=== PATIENT | male | born 1965 | race Caucasian/White ===

== ENCOUNTER 2019-04-04 00:07 | Observation (INO) | payer BC, SELFPAY ==
[2019-04-04] VITALS (13 sets, daily range): BP systolic 109–147; BP diastolic 58–81; PULSE 45–70; RESP 14–18; TEMP 36.6–37.2; O2SAT 92–97; BMI 25.7; BMI 24.7
--- NOTE | 2019-04-04 00:09 | ED.RN ---
CALLED FOR EKG PER RN REQUEST, NO OLD EKGS IN MUSE
--- NOTE | 2019-04-04 00:25 | ED.RN ---
WHILE TRIASGING PT HE REPORTS TO THIS RN THAT HE HAS BEEN HAVING SUICIDAL THOUGHTS. HE REPORTS HE HAS BEEN OUT OF HIS MEDICATIONS AND HAS NOT BEEN TAKING HIS SERTRALINE ON A REGULAR SCHEDULE. HE REPORTS THAT HE HAS BEEN FEELING SUICIDAL. WHEN ASKED HOW HE MAY HURT HIMSELF HE REPORTS, I WOULD DRINK MYSELF TO OR HANG MYSELF. I HAVE BEEN REALLY STRESSED OUT LATELY. I HAVE BEEN HAVING THOUGHTS BUT I DON'T THINK I WOULD ACT ON THEM. THEY HAVE CROSSED MY MIND. CHARGE NURSE INFORMED. DR. BLANCO INFORMED. THIS RN REMAINS AT BEDSIDE WITH PT WHILE AWAITING EVALUATION.
--- NOTE | 2019-04-04 00:33 | EKG12_ITS ---
Test Reason : CP Blood Pressure : / mmHG Vent. Rate : 060 BPM Atrial Rate : 060 BPM P-R Int : 180 ms QRS Dur : 090 ms QT Int : 394 ms P-R-T Axes : 063 010 039 degrees QTc Int : 394 ms Normal sinus rhythm with sinus arrhythmia Normal ECG Confirmed by BELINDA SHELTON ([id number]), editor index ROSLYN GOTTLIEB ([id number] on 04/09/2019 3:28:59 PM Referred By: Félix Moore Confirmed By:BELINDA SHELTON
[2019-04-04] MEDS: Aspirin 81 MG TAB.CHEW 324 MG PO (00:43)
[2019-04-04] MEDS: Nitroglycerin SL (ED/IMG/CATH) 0.4 MG TABLET SUBLINGUAL (00:46)
[2019-04-04 00:49] LABS: Absolute Lymphocyte Count 1.28 X10^3/ul (0.83-4.51); Absolute Neutrophil Count 5.1 X10^3/uL (2.0-7.7); Basophil# 0.09 X10^3/uL; Basophil% 1.3 % (0-1); Eosinophil# 0.22 X10^3/uL; Eosinophils% 3.1 % (0-5); Hematocrit 42.7 % (40-54); Hemoglobin 14.6 g/dl (13.0-16.5); Lymphocyte # 1.28 X10^3/ul (4.0); Lymphocyte % 17.9 % (19-41); Mean Corp Hgb Conc 34.2 g/gl (32-36); Mean Corpuscular Hgb 31.3 pg (27.0-32.0); Mean Corpuscular Volume 91.4 fL (80-94); Mean Platelet Vol. 10.3 fl (6.2-12.0); Neutrophil # 5.07 X10^3/uL (2.7-7.7); Neutrophil % 70.6 % (47-70); Platelet Count 252 K/mm3 (150-450); RBC Distribution Width CV 12.7 % (11.6-14.6); RBC Distribution Width SD 42.1 fl (35.1-43.9); Red Blood Count 4.67 M/mm3 (4.6-6.2); White Blood Count 7.2 K/mm3 (4.4-11.0)
[2019-04-04 00:50] LABS: POSITIVE COUNT NO; POSITIVE DIFFERENTIAL NO; POSITIVE MORPHOLOGY NO
--- NOTE | 2019-04-04 00:52 | RAD_ITS ---
HISTORY: chest pain with sob and weakness EXAM:XR Chest 2 Views COMPARISON: None FINDINGS: EKG leads in place. Normal heart size. Hyperinflation with upper lobe emphysema. Mild interstitial scarring within the mid and lower lung zones. No pulmonary consolidation. No vascular congestion or pleural effusion. No pneumothorax. RAD/Chest PA and Lateral IMPRESSION: 1. No pneumonia or acute chest disease identified. 2. 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 at 0120 Reported and signed by: Lei Maldonado MD Electronically Signed: Lei Maldonado, at 1:19 EDT Tel , Service support ,
[2019-04-04 01:01] LABS: Anion Gap 7 (5-15); BUN 13 mg/dL (7-18); BUN/Creat Ratio 13.1 RATIO (10-20); Chloride 107 mmol/L (98-107); Creatinine, Serum 0.99 mg/dL (0.70-1.30); EST Glomerular Filtration Rate 83 mL/min (>60); Est Glom Filt Rate - Afr Amer 100 mL/min (>60); Estimated Creatinine Clearance 87.05 ml/min; Glucose 254 mg/dL (74-106); Potassium 3.9 mmol/L (3.5-5.1); Sodium Level 139 mmol/L (136-145)
--- NOTE | 2019-04-04 01:48 | HP.PCM_ITS ---
Problem List (1) Chest pain Status: Acute (2) Depression Status: Acute (3) Suicidal ideation Status: Acute History of Present Illness Date of Admission: 04/04/19 Chief Complaint: chest pain The patient is a 53 year old M with a significant history of CAD status post stent; tobacco abuse; alcoholism; Diabetes mellitus; hyperlipidemia; anxiety disorder and depression who presented with 3 to 4 weeks of episodic chest pain. His chest pain typically occurs every day and his last for few minutes. However on the day of his presentation his chest pain persisted all day. He describes his chest pain as tightness and severity 5-6 on a scale of 1-10. Associated with his symptoms is weakness; fatigue;nausea without vomiting; diaphoresis and shortness of breath. 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 He has a history of a panic attack so he thought that it might also be due to his panic attack. Importantly patient has run out of his medication in the last 3 weeks. So far he has only been taking his Brilinta. He reported that he is highly stressed. At the emergency department; patient reported suicidal ideation with a passive wish of but with no active plan. Sitter was provided for him at the emergency department and crisis was consulted. Past Medical History Medical History: Medical History (Last Reviewed 04/04/19 @ 02:59 by Félix Moore MD) CAD (coronary artery disease) I25.10 Allergies No Known Allergies Allergy (Verified 04/04/19 00:07) Home Medications: Ambulatory Orders Medication Instructions Recorded Atorvastatin Calcium 80 mg PO QHS 04/04/19 Famotidine 20 mg PO DAILY 04/04/19 Lisinopril 5 mg PO DAILY 04/04/19 Metformin HCl 1,000 mg PO BID 04/04/19 Sertraline HCl 100 mg PO DAILY 04/04/19 Ticagrelor [Brilinta] 90 mg PO BID 04/04/19 Surgical History: herniorrhaphy, - - coronary stent Smoking Status: Current every day smoker Alcohol: Heavy Review of Systems Constitutional: Reports: Malaise, Weakness, Fatigue. Denies: Chills, Fever, Weight Change HEENT: Denies: Head Aches, Sinus Congestion, Sinus Drainage Cardiovascular: Reports: Chest Tightness, Light Headedness Respiratory: Reports: Shortness of Breath. Denies: Cough Gastrointestinal: Reports: Nausea. Denies: Abdominal Pain, Vomiting Genitourinary: Denies: Dysuria Musculoskeletal: Denies: Joint Pain, Joint Tenderness Skin: Denies: Rash, Wounds Neurological: Denies: Numbness, Tingling, Focal weakness Psychiatric: Reports: Anxiety, Depression, Suicidal Ideations. Denies: Homicidal Ideations Hematologic/ Lymphatic: Denies: Easy Bruising, Easy Bleeding VTE Information - Inpt Only VTE Present on Admission: No VTE Mechan Device Prophylaxis: None VTE Pharm Prophylaxis ordered?: Yes Patient Problems: Active and Suspected Problems (Last Reviewed 04/04/19 @ 02:59 by Félix Moore MD) Chest pain (Acute) Depression (Acute) Suicidal ideation (Acute) - Physical Exam General: Alert, Oriented x3, Cooperative HEENT: Atraumatic, PERRLA, EOMI, Normocephalic Neck: Supple, No JVD, Negative Carotid Bruits Lungs: Clear to auscultation, Normal air movement Cardiovascular: No murmurs, Bradycardic Abdomen: Bowel Sounds Present, Soft, Non Tender Extremities: No edema, Capillary Refill Less than 3 Seconds Skin: No rashes, No breakdown Musculoskeletal: No Tenderness to Palpation of Joints or Extremities Neurological: Cranial nerves II-XII grossly intact Psych/Mental Status: Depressed Vital Signs Temp Pulse Resp BP Pulse Ox 98.9 F 50 L 18 118/75 96 04/04/19 00:08 04/04/19 01:14 04/04/19 01:14 04/04/19 01:14 04/04/19 01:14 Oxygen Flow Rate (L/min) 2 Oxygen Delivery Method Room Air Weight: 81.3 kg Body Mass Index (BMI) 25.7 Laboratory Tests Past 24 Hrs 04/04/19 04/04/19 00:15 00:15 WBC 7.2 RBC 4.67 Hgb 14.6 Hct 42.7 MCV 91.4 MCH 31.3 MCHC 34.2 RDW 12.7 RDW Differential 42.1 Plt Count 252 MPV 10.3 Immature Gran % (Auto) 0.100 Neut % (Auto) 70.6 H Lymph % (Auto) 17.9 L [place] % (Auto) 7.0 Eos % (Auto) 3.1 Baso % (Auto) 1.3 H Absolute Neuts (auto) 5.1 Absolute Lymphs (auto) 1.28 Total Counted Not Reportable Sodium 139 Potassium 3.9 Chloride 107 Carbon Dioxide 25.0 Anion Gap 7 BUN 13 Creatinine 0.99 Estim Creat Clear Calc 87.05 Est GFR (MDRD) Af Amer 100 Est GFR (MDRD) Non-Af 83 BUN/Creatinine Ratio 13.1 Glucose 254 H Calcium 9.0 Troponin I < 0.015 Assessment/Plan All Active Problems (Last Reviewed 04/04/19 @ 02:59 by Félix Moore MD) Chest pain (Acute) Depression (Acute) Suicidal ideation (Acute) The patient is a 53 year old M with a significant history of CAD status post stent: tobacco abuse; alcoholism; Diabetes mellitus; hyperlipidemia; anxiety disorder and depression who presented with 3 to 4 weeks of episodic chest pain; feel highly stressed and with suicidal ideation. Chest Pain Admit to a monitored bed on PCU CXR independently reviewed confirms no acute cardiopulmonary process. EKG independently reviewed confirms sinus arrhythmia Resume home ASA 81 mg and Brilinta Morphine as needed for pain We will check lipid panel. Resume high intensity statin. Serial cardiac enzymes Stat EKG as needed for chest pain Treadmill Stress test in the AM if the cardiac enzymes are negative. Depression/Anxiety Reports that his home Sertraline probably gave him diarrhea. Fluoxetine started at low dose Noted bradycardia on monitor. TSH ordered Suicidal Ideation Counselled Sitter by the bedside Crisis consulted from the ED Diabetes On presentation his blood glucose was not within goal. Like due to barriers of care secondary to running out of his medications Will not resume home metformin Correction scale insulin ordered Tobacco Abuse Counselled Nicotine patch ordered Alcoholism Drinks 2-3 beers per day; and 6 packs beer some day. Counselled Patient think he will not withdraw Declined beer while inpatient. DVT prophylaxis Subcutaneous heparin. Code Visit OBSV E&M: [id number] Initial observation care L3
--- NOTE | 2019-04-04 01:56 | ED.DCSUM_ITS ---
- ER Visit Summary Date of Service: 04/04/19 Chief Complaint: Chest pain History of Present Illness: The patient is a 53 M who presents with chest pain. This is been occurring intermittently over the past 3 weeks. Describes it as a tightness. This usually lasts only seconds. He also complains of associated nausea, shortness of breath, feeling dizzy and lightheaded. His symptoms are worse with exertion. He does have a history of coronary disease with prior [place] cardiac cath and a stent. He has been out of his medications for the past 3 weeks except for his Brilinta. His symptoms were significantly worse tonight with increased shortness of breath and dizziness so he presented. He otherwise complains of some chronic diarrhea for the past 3 months. No vomiting. No fevers. No cough. On suicide screening he did screen positive. He endorses suicidal ideations. He reports that he has been under a lot of stress at home and at work lately. He has had suicidal thoughts of hanging himself. He states sometimes he wishes that something would happen to cause him to such as a tree falling on him. When asked if he actively feels suicidal he states mildly. Physical Examination: Afebrile vitals unremarkable Moist mucous membranes Heart regular rate and rhythm no murmur Lungs clear Abdomen soft Alert Patient endorses suicidal ideation Test Results: EKG shows normal sinus rhythm at a rate of 60. CBC BMP troponin notable only for glucose 254. Chest x-ray shows no acute disease. Emergency Department Course and Treatment: Patient was given aspirin and 1 sublingual nitroglycerin. On reevaluation he is pain-free. Troponin is negative. Patient discussed with the hospitalist and admitted. Additionally he will need to be evaluated by crisis once medically cleared in regard to his ideation. Treatment Plan: [] Disposition: Admit Impression: Chest pain Suicidal ideation This note was generated with [facility] dictation software. It may contain incorrect words, spelling, and punctuation that were not noted in review of the chart prior to signing ED Disposition - Plan for ED Patient: Referrals: Care Physician,No Primary [Primary Care Provider] -
[2019-04-04 02:20] LABS: Amphetamine Urine VISTA NEGATIVE (<1000 ng/mL); Barbiturate Urine VISTA NEGATIVE (< 200 ng/mL); Benzodiazepine Urine VISTA NEGATIVE (< 200 ng/mL); Cocaine Urine VISTA NEGATIVE (< 300 ng/mL); Ecstacy Urine VISTA NEGATIVE (< 500 ng/mL); Methadone Urine VISTA NEGATIVE (< 300 ng/mL); PCP Urine VISTA NEGATIVE (< 25 ng/mL); THC Urine VISTA NEGATIVE (< 50 ng/mL); Vista UDS pH Range 6
--- NOTE | 2019-04-04 02:44 | EKG12_ITS ---
Test Reason : CP ADMISSION Blood Pressure : / mmHG Vent. Rate : 047 BPM Atrial Rate : 047 BPM P-R Int : 112 ms QRS Dur : 096 ms QT Int : 430 ms P-R-T Axes : 079 046 015 degrees QTc Int : 380 ms Sinus bradycardia Otherwise normal ECG No previous ECGs available Confirmed by MIKEY GUERRA ([id number]), web content editor ROSLYN GOTTLIEB ([id number]) on 04/09/2019 4:46:41 PM Referred By: Félix Moore Confirmed By:CAMDEN GUERRA
[2019-04-04 03:12] LABS: Thyroid Stim Hormone (TSH) 1.54 uIU/mL (0.358-3.74)
[2019-04-04] MEDS: FLUoxetine 20 MG Capsule PO ×2 (03:22→09:40)
[2019-04-04] MEDS: Atorvastatin Calcium 80 MG Tablet PO (03:22)
[2019-04-04] MEDS: TICAGRELOR 90 MG TABLET PO (05:39)
[2019-04-04] MEDS: Lisinopril 5 MG Tablet PO (05:40)
[2019-04-04 06:00] LABS: Absolute Neutrophil Count 3.3 X10^3/uL (2.0-7.7); Basophil# 0.06 X10^3/uL; Eosinophil# 0.34 X10^3/uL; Eosinophils% 5.7 % (0-5); Hematocrit 42.1 % (40-54); Hemoglobin 14.4 g/dl (13.0-16.5); Lymphocyte % 28.6 % (19-41); Mean Corp Hgb Conc 34.2 g/gl (32-36); Mean Corpuscular Hgb 31.4 pg (27.0-32.0); Mean Corpuscular Volume 91.9 fL (80-94); Mean Platelet Vol. 9.8 fl (6.2-12.0); Monocyte# 0.55 X10^3/uL; Monocyte% 9.3 % (0-10); Neutrophil # 3.28 X10^3/uL (2.7-7.7); Neutrophil % 55.2 % (47-70); Platelet Count 233 K/mm3 (150-450); RBC Distribution Width SD 43.2 fl (35.1-43.9); Red Blood Count 4.58 M/mm3 (4.6-6.2); White Blood Count 5.9 K/mm3 (4.4-11.0)
[2019-04-04 06:05] LABS: Prothrombin Time (Protime)PT. 13.1 SECONDS (11.7-14.9)
[2019-04-04 06:06] LABS: Partial Thromboplast Time 26.9 Seconds (24.1-36.2)
[2019-04-04 06:12] LABS: POSITIVE COUNT NO; POSITIVE DIFFERENTIAL NO; POSITIVE MORPHOLOGY NO
[2019-04-04 06:16] LABS: Anion Gap 7 (5-15); BUN 12 mg/dL (7-18); BUN/Creat Ratio 15.6 RATIO (10-20); Calcium,Total 8.9 mg/dL (8.5-10.1); Chloride 108 mmol/L (98-107); Cholesterol 193 mg/dL (200); Creatinine, Serum 0.77 mg/dL (0.70-1.30); EST Glomerular Filtration Rate 111 mL/min (>60); Est Glom Filt Rate - Afr Amer 135 mL/min (>60); Estimated Creatinine Clearance 111.92 ml/min; Glucose 127 mg/dL (74-106); High Density Lipoprotein 47 mg/dL; Potassium 3.8 mmol/L (3.5-5.1); Sodium Level 141 mmol/L (136-145); Triglycerides 135 mg/dL; Very Low Density Lipoprotein 27 mg/dL (5-40)
[2019-04-04] MEDS: Famotidine 20 MG Tablet PO (09:40)
[2019-04-04 13:02] LABS: Bedside Glucose 149 mg/dL (70-110)
--- NOTE | 2019-04-04 14:42 | PCM.PN.BLA ---
Progress Note Admission H&P from this morning reviewed, he denies any chest pain currently and the stress test is currently pending read. If normal will proceed with behavioral health referral since he was expressing suicidal ideation in the ER this morning.
--- NOTE | 2019-04-04 16:12 | STRESSREP_ITS ---
Stress Test Report Date: April 04, 2019 Procedure: Pharmacologic stress nuclear imaging study Indications: Chest pain Consent: Per the patient Procedure: Patient initially started as exercise nuclear stress test. He walked for 8 minutes and 10 seconds. He achieved a workload of 10.1 METS. His resting heart rate was 50 bpm and misael to 120 bpm which represented 72% of maximal age predicted heart rate. His resting blood pressure was 116/78 which misael to 142/74. Since he was unable to attain target heart rate he was switched to Lexiscan stress test. His EKG at rest and with peak exercise did not reveal any significant ST-T changes suggestive of significant ischemia. However the exercise portion of the test had low sensitivity due to inability to attain target heart rate and as mentioned above so he was switched to Lexiscan stress test. The patient underwent pharmacologic (Regadenoson) evaluation with a peak heart rate of 93 beats per minute (56 %predicted maximal heart rate) and a peak blood pressure of 124/70 mmHg. The baseline ECG demonstrated normal sinus rhythm nonspecific ST-T changes. EKG during lexiscan infusion revealed no significant change from baseline. EKG post infusion revealed no significant change from baseline [There were no cardiac dysrhythmias pretest, during pharmacologic infusion, or recovery]. [There was no complaint of chest discomfort during pharmacologic infusion or recovery]. Patient had 2 out of 10 chest pain at the beginning of the procedure with did not change with exercise or Lexiscan infusion. The examination was discontinued secondary to completion of protocol. Impression: 1. Lexiscan stress test test is negative for Lexiscan infusion induced EKG changes of ischemia. 2. Lexiscan stress test test negative for Lexiscan infusion induced chest pain. 3. Results of the nuclear portion of the test is as below Myocardial perfusion imaging study: Technique: The patient was injected with 11.2 millicuries of technetium 99m Cardiolite and subsequently rest SPECT Cardiolite nuclear imaging was obtained in the horizontal long, vertical long, and short axis views. The patient underwent pharmacologic (Regadenoson) evaluation with a peak heart rate of 93 beats per minute (56 % percent predicted maximal heart rate) and a peak blood pressure of 124 mmHg. The patient was injected with 32.9 millicuries of technetium 99m Cardiolite and subsequently stress SPECT Cardiolite nuclear imaging was obtained in the horizontal long, vertical long, and short axis views. A gated Cardiolite study at peak stress was obtained. Interpretation: Rest and stress SPECT Cardiolite nuclear imaging status post realignment, normalization, and attenuation correction demonstrate normal myocardial radioisotope uptake. Gated images reveal no significant regional wall motion abnormalities. The reported LVEF is greater than 70 %. Impression: 1. There is no evidence of significant ischemia or infarction. 2. Estimated ejection fraction is greater than 70%. This note was generated with [employer] software. It may contain incorrect words, spelling, and punctuation that were not noted in checking the note before signing.
[2019-04-04 16:56] LABS: Bedside Glucose 153 mg/dL (70-110)
[2019-04-04] MEDS: Insulin Lispro 100 UNIT/ML INSULN.PEN SQ (18:12)
--- NOTE | 2019-04-04 18:55 | DCINST_ITS ---
- Discharge Diagnoses Current Active Problems: Current Active and Chronic Problems (Last Reviewed 04/04/19 @ 02:59 by Félix Moore MD) Chest pain (Acute) Depression (Acute) Suicidal ideation (Acute) You will use the following diet at home:: Cardiac Your food should be the consistency of: Regular Your liquids should be the consistency of: Regular/Thin Discharge Activity: Return to Normal Activity Call your doctor if you observe: Fever of 101 or Higher, Shortness of breath, Dizziness, Fainting spells, Swelling in the ankles, Chest pain, Increased palpitations (irregular heartbeat) Additional Instructions: Please follow-up with your primary care physician as an outpatient, discussed with him that while being on Prozac if he is asymptomatic after 2 weeks from side effects, he can double his dose of Prozac. Allergies/Adverse Reactions: Allergies No Known Allergies Allergy (Verified 04/04/19 00:07) Medications to take at Discharge Atorvastatin Calcium 80 mg PO QHS 04/04/19 Famotidine 20 mg PO DAILY 04/04/19 Fluoxetine [Prozac] 20 mg PO DAILY #30 cap 04/04/19 Lisinopril 5 mg PO DAILY 04/04/19 Metformin HCl 1,000 mg PO BID 04/04/19 Ticagrelor [Brilinta] 90 mg PO BID 04/04/19 The following prescriptions were given: Fluoxetine [Prozac] 20 mg PO DAILY #30 cap Primary Care Physician: Care Physician,No Primary [Primary Care Provider] - Please follow up with your Primary Care Physician in: 3-5 days Test Results: Test results from this visit will be discussed in further detail at your follow- up appointment, if applicable.
--- NOTE | 2019-04-04 19:01 | DS.PCM_ITS ---
Discharge Date and Diagnosis - Problem List Patient Problems: Active and Suspected Problems (Last Reviewed 04/04/19 @ 02:59 by Félix Moore MD) Chest pain (Acute) Depression (Acute) Suicidal ideation (Acute) Date of Admission: 04/04/19 Date of Discharge: 04/04/19 - Primary Discharge Diagnosis Active and Suspected Problems (Last Reviewed 04/04/19 @ 02:59 by Félix Moore MD) Chest pain (Acute) Depression (Acute) Suicidal ideation (Acute) Hospital Course and Treatment Imaging Results: CXR: IMPRESSION: 1. No pneumonia or acute chest disease identified. 2. 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 Consultations 04/04/19 16:20 Consult: Mental Health/Crisis Routine Reason for consult?: suicidal ideation Date Notified:: 04/04/19 Time notified:: 16:20 Operations: None Procedures: Nuclear stress test - Interpretation: Rest and stress SPECT Cardiolite nuclear imaging status post realignment, normalization, and attenuation correction demonstrate normal myocardial radioisotope uptake. Gated images reveal no significant regional wall motion abnormalities. The reported LVEF is greater than 70 %. Impression: 1. There is no evidence of significant ischemia or infarction. 2. Estimated ejection fraction is greater than 70%. Summary of Care Provided: Per HPI: The patient is a 53 year old M with a significant history of CAD status post stent; tobacco abuse; alcoholism; Diabetes mellitus; hyperlipidemia; anxiety disorder and depression who presented with 3 to 4 weeks of episodic chest pain. His chest pain typically occurs every day and his last for few minutes. However on the day of his presentation his chest pain persisted all day. He describes his chest pain as tightness and severity 5-6 on a scale of 1-10. Associated with his symptoms is weakness; fatigue;nausea without vomiting; diaphoresis and shortness of breath. 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 He has a history of a panic attack so he thought that it might also be due to his panic attack. Importantly patient has run out of his medication in the last 3 weeks. So far he has only been taking his Brilinta. He reported that he is highly stressed. At the emergency department; patient reported suicidal ideation with a passive wish of but with no active plan. Sitter was provided for him at the emergency department and crisis was consulted. Hospital Course: 1. Chest [id number] male with a history of CAD status post stent presenting with 3 to 4 weeks of intermittent chest pain. His chest pain was more of a tightness and he was very stressed due to the pain given his previous cardiac history and he also has underlying anxiety and depression and so he presented to the ER. He underwent a stress test which was normal, his EKG remained nonischemic and his troponins were all negative. He was already on Brilinta and aspirin which will be continued on discharge. He is also on high intensity statin which will also be continued. 2. Anxiety/depression/suicidal ideation-he was on Zoloft at home but he said that this was giving him significant diarrhea and he was transitioned to a low- dose Prozac here in the hospital. He stated in the ER that with the chest pain and the stress that he has been having at home and at work, he has been having suicidal thoughts and had thoughts of hanging himself. A sitter was placed in his room and crisis was contacted. They met with him this afternoon and went over a safety plan and who to contact and who to call and they felt that he was safe for discharge. I discussed with him that we will be giving her a prescription for Prozac and if in 2 weeks of taking the medication he does not have any significant side effects he can increase the medication to 40 mg daily, however he will need to find a primary care physician or psychiatrist to provide him a refill and manage this medication. 3. His other medical problems were evaluated and his home medications were continued where appropriate This was discussed with him and he expressed understanding and agreed to the plan. Patient Problems: Active and Suspected Problems (Last Reviewed 04/04/19 @ 02:59 by Félix Moore MD) Chest pain (Acute) Depression (Acute) Suicidal ideation (Acute) - Physical Exam General: Alert, Oriented x3, Cooperative, No apparent distress HEENT: Atraumatic, PERRLA, EOMI, Normocephalic Oral: Moist Mucosa Neck: Supple, No JVD Lungs: Clear to auscultation, Normal air movement, No rhonchi, No wheeze, No rales Cardiovascular: Regular rate, Regular Rhythm, Normal S1, Normal S2, No murmurs Abdomen: Soft, Non Tender, Non-Distended, No Hepato-splenomegaly Extremities: No edema, Capillary Refill Less than 3 Seconds Skin: No rashes, No breakdown Neurological: Neuro grossly intact, Sensory exam intact to light touch and pain Psych/Mental Status: Depressed, Suicidal - He expressed suicidal thoughts in the ER however he thinks that he is doing better now that he knows that his chest pain is not another heart attack. Vital Signs Temp Pulse Resp BP Pulse Ox 98.3 F 70 18 120/75 92 04/04/19 15:27 04/04/19 15:39 04/04/19 15:27 04/04/19 15:27 04/04/19 15:27 Oxygen Flow Rate (L/min) 2 Oxygen Delivery Method Room Air Weight: 172 lb 6.424 oz Body Mass Index (BMI) 24.7 Intake and Output for Last 24 Hours 04/02/19 04/03/19 04/04/19 23:59 23:59 23:59 Intake Total 835 / 835 Balance 835 / 835 Laboratory Tests Past 24 Hrs 04/04/19 04/04/19 04/04/19 00:15 00:15 00:15 WBC 7.2 RBC 4.67 Hgb 14.6 Hct 42.7 MCV 91.4 MCH 31.3 MCHC 34.2 RDW 12.7 RDW Differential 42.1 Plt Count 252 MPV 10.3 Immature Gran % (Auto) 0.100 Neut % (Auto) 70.6 H Lymph % (Auto) 17.9 L [place] % (Auto) 7.0 Eos % (Auto) 3.1 Baso % (Auto) 1.3 H Absolute Neuts (auto) 5.1 Absolute Lymphs (auto) 1.28 Total Counted Not Reportable PT INR APTT Sodium 139 Potassium 3.9 Chloride 107 Carbon Dioxide 25.0 Anion Gap 7 BUN 13 Creatinine 0.99 Estim Creat Clear Calc 87.05 Est GFR (MDRD) Af Amer 100 Est GFR (MDRD) Non-Af 83 BUN/Creatinine Ratio 13.1 Glucose 254 H Calcium 9.0 Troponin I < 0.015 Triglycerides Cholesterol LDL Cholesterol VLDL Cholesterol HDL Cholesterol TSH 1.54 Urine Opiates Screen Urine Methadone Screen Ur Barbiturates Screen Ur Phencyclidine Scrn Ur Amphetamines Screen U Methamphetamin-MDMA U Benzodiazepines Scrn Urine Cocaine Screen U Cannabinoids Screen Ur Drug Screen Comment 04/04/19 04/04/19 04/04/19 01:05 03:40 05:45 WBC RBC Hgb Hct MCV MCH MCHC RDW RDW Differential Plt Count MPV Immature Gran % (Auto) Neut % (Auto) Lymph % (Auto) [place] % (Auto) Eos % (Auto) Baso % (Auto) Absolute Neuts (auto) Absolute Lymphs (auto) Total Counted PT INR APTT Sodium 141 Potassium 3.8 Chloride 108 H Carbon Dioxide 26.0 Anion Gap 7 BUN 12 Creatinine 0.77 Estim Creat Clear Calc 111.92 Est GFR (MDRD) Af Amer 135 Est GFR (MDRD) Non-Af 111 BUN/Creatinine Ratio 15.6 Glucose 127 H Calcium 8.9 Troponin I < 0.015 < 0.015 Triglycerides 135 Cholesterol 193 LDL Cholesterol 119 VLDL Cholesterol 27 HDL Cholesterol 47 TSH Urine Opiates Screen NEGATIVE Urine Methadone Screen NEGATIVE Ur Barbiturates Screen NEGATIVE Ur Phencyclidine Scrn NEGATIVE Ur Amphetamines Screen NEGATIVE U Methamphetamin-MDMA NEGATIVE U Benzodiazepines Scrn NEGATIVE Urine Cocaine Screen NEGATIVE U Cannabinoids Screen NEGATIVE Ur Drug Screen Comment 04/04/19 04/04/19 05:45 05:45 WBC 5.9 RBC 4.58 L Hgb 14.4 Hct 42.1 MCV 91.9 MCH 31.4 MCHC 34.2 RDW 13.0 RDW Differential 43.2 Plt Count 233 MPV 9.8 Immature Gran % (Auto) 0.200 Neut % (Auto) 55.2 Lymph % (Auto) 28.6 [place] % (Auto) 9.3 Eos % (Auto) 5.7 H Baso % (Auto) 1.0 Absolute Neuts (auto) 3.3 Absolute Lymphs (auto) 1.70 Total Counted Not Reportable PT 13.1 INR 1.0 APTT 26.9 Sodium Potassium Chloride Carbon Dioxide Anion Gap BUN Creatinine Estim Creat Clear Calc Est GFR (MDRD) Af Amer Est GFR (MDRD) Non-Af BUN/Creatinine Ratio Glucose Calcium Troponin I Triglycerides Cholesterol LDL Cholesterol VLDL Cholesterol HDL Cholesterol TSH Urine Opiates Screen Urine Methadone Screen Ur Barbiturates Screen Ur Phencyclidine Scrn Ur Amphetamines Screen U Methamphetamin-MDMA U Benzodiazepines Scrn Urine Cocaine Screen U Cannabinoids Screen Ur Drug Screen Comment POC Glucose 04/04/19 04/04/19 16:48 11:18 POC Glucose 153 H 149 H Discharge Activity: Return to Normal Activity Call your doctor if you observe: Fever of 101 or Higher, Shortness of breath, Dizziness, Fainting spells, Swelling in the ankles, Chest pain, Increased palpitations (irregular heartbeat) Home Medications: Medications to take at Discharge Atorvastatin Calcium 80 mg PO QHS 04/04/19 Famotidine 20 mg PO DAILY 04/04/19 Fluoxetine [Prozac] 20 mg PO DAILY #30 cap 04/04/19 Lisinopril 5 mg PO DAILY 04/04/19 Metformin HCl 1,000 mg PO BID 04/04/19 Ticagrelor [Brilinta] 90 mg PO BID 04/04/19 Following Prescrptions Were Given to Patient: Fluoxetine [Prozac] 20 mg PO DAILY #30 cap Primary Care Physician: Care Physician,No Primary [Primary Care Provider] - Please follow up with your Primary Care Physician in: 3-5 days Disposition: Home Minutes spent on discharge:: 35 Patient Condition:: Stable Medical Necessity - Tobacco Use Smoking Status: Current every day smoker Meaningful Use Info Meaningful Use Diagnoses (Choose all that apply): None applicable Code Visit OBSV E&M: 82190 Observation care discharge
== END 2019-04-04 19:25 | disposition home or self-care (01) ==
LOC: ED 00:50 → PCU 02:18
PROVIDERS: Admitting Provider Hospitalist; Emergency Provider Emergency Medicine; Referring Provider Hospitalist; Visit Provider Family Medicine
DX: R07.89 Other chest pain (principal); I25.10 Atherosclerotic heart disease of native coronary artery without angina pectoris; E11.9 Type 2 diabetes mellitus without complications; E78.5 Hyperlipidemia, unspecified; F41.9 Anxiety disorder, unspecified; F32.9 Major depressive disorder, single episode, unspecified; R45.851 Suicidal ideations; F17.200 Nicotine dependence, unspecified, uncomplicated; F10.20 Alcohol dependence, uncomplicated; Z95.5 Presence of coronary angioplasty implant and graft; Z79.899 Other long term (current) drug therapy; I25.2 Old myocardial infarction
CPT/HCPCS: 36415; 71046; 78452; 80048; 80061; 80307; 82962; 84443; 84484; 85025; 85610; 85730; 93005; 93017; 99218; 99285; 99406; A9500; A4216; G0378; J2785

== ENCOUNTER 2020-06-21 15:07 | Emergency (ER) | payer MEDICAID, SELFPAY ==
[2019-04-04 02:56] VITALS: BMI 24.7
[2020-06-21 15:08] VITALS: BP 148/100; PULSE 82; RESP 17; TEMP 36.4; O2SAT 97; BMI 24.0
--- NOTE | 2020-06-21 15:24 | RAD_ITS ---
STUDY: X-RAY - LEFT WRIST REASON FOR EXAM: Male, 55 years old. Left wrist pain TECHNIQUE: 3 view(s) of the wrist were obtained. COMPARISON: None. FINDINGS: There is chronic nonunited fracture of the scaphoid with severe sclerosis of both fragments. Distal fragment is rotated. There is cystic degeneration of the distal subchondral radius. The wrist is located. Remainder of the carpal bones are intact. RAD/Wrist min 3 Views IMPRESSION: 1. Chronic nonunited sclerotic fragments of scaphoid. Elective orthopedic surgery referral is advised. 2. Subchondral distal radial cyst. Electronically Signed: Bob Anguiano, at 16:08 EDT Tel , Service support ,
--- NOTE | 2020-06-21 16:28 | ED.VISSUMM ---
- ER Visit Summary Date of Service: 06/21/20 Chief Complaint: Left wrist pain History of Present Illness: The patient is a 55 M with left wrist pain for several days. Patient denies any injury or inciting factors. Worse with movement both radial and ulnar deviation. No other symptoms. Physical Examination: Afebrile and vital signs unremarkable. Unremarkable inspection. No redness or visible swelling at this time. No deformities. Diffuse tender to palpation over the left wrist. No warmth. Motion is intact. No laxity. Neurovascular intact distally. Good strength and sensation. Elbow unremarkable. Normal pronation and supination. Test Results: X-rays show a left wrist with a chronic nonunited scaphoid fracture and a distal radial cyst Emergency Department Course and Treatment: Patient declined pain medicine. X-rays as above. Patient was placed in a preformed Velcro thumb spica splint. Referred to hand surgery for follow-up. Pain meds as needed. Treatment Plan: As above Disposition: Discharge Impression: Left wrist pain This note was generated with [employer] dictation software. It may contain incorrect words, spelling, and punctuation that were not noted in review of the chart prior to signing ED Disposition - Plan for ED Patient: Referrals: Hailey Mercado [Primary Care Provider] -
--- NOTE | 2020-06-21 16:30 | ED.DEP ---
ED Disposition - Plan for ED Patient: Instructions: ED Sprain Wrist Referrals: Mnauel Sandra MD [STAFF PHYSICIAN] -
== END 2020-06-21 16:42 | disposition home or self-care (01) ==
LOC: ED 15:50
PROVIDERS: Emergency Provider Emergency Medicine
DX: M25.532 Pain in left wrist (principal); K21.9 Gastro-esophageal reflux disease without esophagitis; E78.00 Pure hypercholesterolemia, unspecified; Z72.0 Tobacco use
CPT/HCPCS: 73110; 99283

== ENCOUNTER → 2020-07-16 13:49 | Outpatient (CLI) | payer MEDICAID, SELFPAY ==
[2020-06-21 15:08] VITALS: BMI 24.0
--- NOTE | 2020-07-16 13:52 | CT_ITS ---
STUDY: LOW DOSE CT LUNG CANCER SCREENING REASON FOR EXAM: Male, 55 years old. SMOKER 1 PPD X 42 YEARS. RADIATION DOSAGE (If Supplied By Facility): CTDIvol = ( 2.55 ) mGy, DLP = ( 104.62 ) mGycm TECHNIQUE: No contrast was administered. Low dose technique was utilized (average mAS-38 and kVp 120). 1.25 mm axial source images with a slice interval of 1.25-mm were reconstructed in lung windows. 2.5 mm axial source images with a slice interval of 2.5-mm were reconstructed in lung windows. 5.0 mm axial source images with a slice interval of 5.0-mm were reconstructed in soft tissue windows. Nodule measured using lung windows on PACS and/or independent workstation with automated measurement of minimum and maximum diameter. Nodule measurement reported as average diameter rounded to the nearest whole number. Growth is defined as an increase ins size of greater than 1.5 mm. COMPARISON: None. NODULES: No suspicious nodules are seen. Emphysema: Hyperinflation. There is evidence of emphysematous changes with bullous formation in the upper lobes. Increased interstitial markings in the anterior aspect of the upper lobes as well as in the posterior aspect of the right middle lobe and lower lungs. There is evidence of a cystic changes at the site suggestive of a chronic interstitial fibrosis and honeycombing. Endobronchial lesion: None Aorta: Atherosclerotic calcification of the aortic arch. Coronary arteries: Coronary artery calcification. Heart: Unremarkable Pulmonary artery: Unremarkable Mediastinal nodes: Scattered benign-appearing mediastinal lymph nodes. Other chest and abdominal findings: CT/Low Dose CT Lung Screening IMPRESSION: Lung-RADS category 2 - Continue annual screening with LDCT in 12 months. IMPORTANT NOTES FOR USE: ACR Lung-RADS Version 1.0 Assessment Categories Release Date: March 18, 2014 Category: Coded 0-4 bases on nodule(s) with highest degree of suspicion. Negative screen is defined as categories 1 and 2; a positive screen is defined as categories 3 and 4. Category 3 and 4A nodules that are unchanged on interval CT should be coded as category 2, and individuals returned to screening in 12 months. Category 4X: Category 3 or 4 nodules with additional imaging findings that increase the suspicion of lung cancer, such as spiculation, GGN that doubles in size in 1 year, enlarged lymph notes, etc. Category Modifiers: S (significant finding unrelated to lung cancer) and C (prior history of treated lung cancer) may be added to the 0-4 Lung-RADS Electronically Signed: Jonnie Davila, at 14:18 EDT , Service support ,
== END ==
DX: Z12.2 Encounter for screening for malignant neoplasm of respiratory organs (principal); F17.210 Nicotine dependence, cigarettes, uncomplicated
CPT/HCPCS: G0297

== ENCOUNTER → 2020-07-23 11:02 | Outpatient (CLI) | payer MEDICAID, SELFPAY ==
[2020-07-23 11:51] LABS: Absolute Lymphocyte Count 1.33 X10^3/uL (0.83-4.51); Absolute Neutrophil Count 3.8 X10^3/uL (2.0-7.7); Basophil# 0.15 X10^3/uL; Basophil% 2.4 % (0-1); Eosinophil# 0.33 X10^3/uL; Eosinophils% 5.3 % (0-5); Hematocrit 46.7 % (40-54); Hemoglobin 15.9 g/dL (13.0-16.5); Lymphocyte # 1.33 X10^3/ul (4.0); Lymphocyte % 21.3 % (19-41); Mean Corpuscular Hgb 31.8 pg (27.0-32.0); Mean Corpuscular Volume 93.4 fL (80-94); Mean Platelet Vol. 9.7 fl (6.2-12.0); Monocyte# 0.56 X10^3/uL; NRBC Flagged by Analyzer 0 % (0-5); Neutrophil # 3.83 X10^3/uL (2.7-7.7); Neutrophil % 61.5 % (47-70); Platelet Count 258 K/mm3 (150-450); RBC Distribution Width CV 12.3 % (11.6-14.6); RBC Distribution Width SD 42.5 fl (35.1-43.9); White Blood Count 6.2 K/mm3 (4.4-11.0)
[2020-07-23 12:30] LABS: Microalbumin,Random Urine 5.6 mg/L (NO RANGE EST.); Microalbumin:Creatinine Ratio 21.6 mg/g CRE (<30 mg/g CRE)
[2020-07-23 12:35] LABS: Vitamin D,25 Hydroxy 39.7 ng/mL
[2020-07-23 12:40] LABS: ALB/GLOB Ratio 0.8 RATIO (0.9-2.4); AST(SGOT) 28 U/L (15-37); Alanine Aminotransfer ALT/SGPT 39 U/L (16-61); Albumin, Serum 3.5 g/dL (3.2-5.0); Alkaline Phosphatase 160 U/L (45-117); Anion Gap 4 (5-15); BUN 7 mg/dL (7-18); BUN/Creat Ratio 8.7 RATIO (10-20); Calcium,Total 9.2 mg/dL (8.5-10.1); Chloride 103 mmol/L (98-107); Cholesterol 175 mg/dL (200); EST Glomerular Filtration Rate 105 mL/min (>60); Est Glom Filt Rate - Afr Amer 128 mL/min (>60); Globulin 4.3 g/dL (2.2-4.2); Glucose 130 mg/dL (74-106); High Density Lipoprotein 44 mg/dL; Potassium 4.4 mmol/L (3.5-5.1); Protein, Total 7.8 g/dL (6.4-8.2); Sodium Level 134 mmol/L (136-145); T4 Free Direct 0.97 ng/dL (0.76-1.46); Thyroid Stim Hormone (TSH) 2.65 uIU/mL (0.358-3.74); Triglycerides 120 mg/dL; Very Low Density Lipoprotein 24 mg/dL (5-40)
== END ==
PROVIDERS: Referring Provider Nurse Practitioner Family; Visit Provider Nurse Practitioner Family
DX: E11.42 Type 2 diabetes mellitus with diabetic polyneuropathy (principal); I25.89 Other forms of chronic ischemic heart disease; E55.9 Vitamin D deficiency, unspecified; F41.1 Generalized anxiety disorder
CPT/HCPCS: 80053; 80061; 82043; 82306; 82570; 83036; 84439; 84443; 85025

== ENCOUNTER → 2021-01-30 07:18 | Outpatient (CLI) | payer MEDICAID, SELFPAY ==
[2021-01-30 08:09] LABS: Absolute Lymphocyte Count 1.36 X10^3/uL (0.83-4.51); Absolute Neutrophil Count 2.5 X10^3/uL (2.0-7.7); Basophil% 1.9 % (0-1); Eosinophil# 0.64 X10^3/uL; Eosinophils% 12.2 % (0-5); Hematocrit 40.8 % (40-54); Hemoglobin 13.7 g/dL (13.0-16.5); Lymphocyte # 1.36 X10^3/ul (4.0); Mean Corp Hgb Conc 33.6 g/dL (32-36); Mean Corpuscular Hgb 31.6 pg (27.0-32.0); Mean Corpuscular Volume 94.2 fL (80-94); Mean Platelet Vol. 9.8 fl (6.2-12.0); Monocyte% 11.5 % (0-10); NRBC Flagged by Analyzer 0 % (0-5); Neutrophil # 2.52 X10^3/uL (2.7-7.7); Neutrophil % 48.2 % (47-70); Platelet Count 226 K/mm3 (150-450); RBC Distribution Width CV 12.4 % (11.6-14.6); Red Blood Count 4.33 M/mm3 (4.6-6.2); White Blood Count 5.2 K/mm3 (4.4-11.0)
[2021-01-30 08:35] LABS: Anion Gap 3 (5-15); BUN 13 mg/dL (7-18); BUN/Creat Ratio 15.2 RATIO (10-20); Chloride 100 mmol/L (98-107); Creatinine, Serum 0.86 mg/dL (0.70-1.30); EST Glomerular Filtration Rate 98 mL/min (>60); Est Glom Filt Rate - Afr Amer 118 mL/min (>60); Glucose 164 mg/dL (74-106); Potassium 4.2 mmol/L (3.5-5.1); Sodium Level 133 mmol/L (136-145)
[2021-01-30 08:41] LABS: Hemoglobin A1c 8.6 % (3.8-5.6)
== END ==
DX: E11.42 Type 2 diabetes mellitus with diabetic polyneuropathy (principal); I25.89 Other forms of chronic ischemic heart disease; F17.200 Nicotine dependence, unspecified, uncomplicated
CPT/HCPCS: 36415; 80048; 83036; 85025

== ENCOUNTER → 2021-02-11 12:10 | Outpatient (CLI) | payer MEDICAID, SELFPAY ==
[2021-02-11 13:58] LABS: PSA,Total - Annual Screen 0.48 ng/mL (0.00-4.00)
--- NOTE | 2021-02-11 14:55 | RAD_ITS ---
STUDY: X-RAY - LUMBAR SPINE REASON FOR EXAM: Male, 55 years old. LUMBAGO WITH SCIATICA TECHNIQUE: 3 view(s) of the lumbar spine were obtained. COMPARISON: None FINDINGS: Normal lumbar lordosis. There is no substantial scoliosis. There is a normal alignment of the vertebrae. Anterior spondylosis and disc space narrowing at the T12-L1 level. Mild anterior spondylosis and disc space narrowing at the L3-L4 level. There is atherosclerotic calcification of the abdominal aorta without a demonstrated aneurysm. RAD/Lumbar Spine 2 or 3 Views IMPRESSION: Degenerative changes of the spine, as detailed above. Electronically Signed: Jonnie Davila MD at 15:34 EDT , Service support ,
[2021-02-14 20:07] LABS: Testosterone, Free 9.19 ng/dL (5.00-21.00)
[2021-02-15 12:56] LABS: Testosterone, % Free 1.96 % (1.50-4.20); Testosterone, Total 469 ng/dL (264-916)
== END ==
DX: N52.9 Male erectile dysfunction, unspecified (principal); Z12.5 Encounter for screening for malignant neoplasm of prostate; M54.40 Lumbago with sciatica, unspecified side
CPT/HCPCS: 36415; 72100; 84153; 84402; 84403; G0103

== ENCOUNTER → 2021-02-13 09:27 | Outpatient (CLI) | payer MEDICAID, SELFPAY ==
--- NOTE | 2021-02-13 09:30 | US_ITS ---
STUDY: SUPERFICIAL ULTRASOUND - SUBMANDIBULAR REGION. REASON FOR EXAM: Male, 55 years old. LOCALIZED SWELLING -- SWELLING RIGHT SUBMANDIBULAR AREA 2MONTHS TECHNIQUE: A superficial ultrasound was performed with real-time and static whiteside-scale imaging. COMPARISON: None. FINDINGS: The palpable abnormality corresponds to a 2.4 cm x 2.6 cm x 1.8 cm complex solid and cystic mass. There is evidence of increased vascularity. This may represent an inflammatory lymph node. Biopsy is recommended. US/Head/Neck Soft Tissue IMPRESSION: The palpable abnormality corresponds to a 2.4 cm x 2.6 x 1 27 conference solid and cystic mass. Increased vascularity. Biopsy recommended. Electronically Signed: Jonnie Davila MD at 14:10 EDT , Service support ,
== END ==
DX: R22.1 Localized swelling, mass and lump, neck (principal)
CPT/HCPCS: 76536

== ENCOUNTER → 2021-02-17 13:18 | Outpatient (CLI) | payer MEDICAID, SELFPAY ==
--- NOTE | 2021-02-17 13:21 | CT_ITS ---
STUDY: CT SOFT TISSUE NECK WITH CONTRAST REASON FOR EXAM: Male, 55 years old. LOCALIZED Swelling, mass AND LUMP, NECK -- PT ALSO HAS XRAY RADIATION DOSAGE (If Supplied By Facility): CTDIvol = ( 18.09 ) mGy, DLP = ( 587.61 ) mGycm TECHNIQUE: The patient was scanned in a multi-detector CT scanner. High resolution transaxial imaging was performed following intravenous administration of IV 100mL Isovue-300. Sagittal and coronal images were reconstructed. Individualized dose optimization techniques were used for this CT. COMPARISON: None. FINDINGS: Normal bilateral parotid glands. Normal bilateral director of fundraising spaces. Normal bilateral parapharyngeal spaces. Normal bilateral carotid spaces. Normal bilateral sublingual and submandibular glands and spaces. Normal visualized nasopharynx. Normal retropharyngeal space. Normal perivertebral space. Normal visualized bilateral faucial tonsils. The visualized tongue, tongue base and oropharynx are normal. There is a 2.7cm x 1.7 cm rounded soft tissue mass in the anterior right cervical triangle anterior to the right sternal cleidomastoid muscle. A similar appearing hypodense solid nodule is also seen in the anterior triangle of the left-sided neck measuring 1 cm x 1.1 cm. This corresponds to the palpable abnormality. There is also evidence of multiple small bilateral cervical lymph nodes. A biopsy may be indicated. There is no abnormal contrast enhancement. Normal epiglottis, bilateral vallecula and hypopharynx. The pre-epiglottic and paraglottic adipose spaces are normal. Normal visualized bilateral piriform sinuses, aryepiglottic folds, vocal cords, and arytenoid-cricoid articulations. Normal subglottic trachea. Normal bilateral lobes of the thyroid gland. Normal visualized pulmonary apices. Normal visualized paranasal sinuses. Disc space narrowing and spondylosis at the C5-C6 and C6-C7 levels. Disc space narrowing and spondylosis also seen at the T1-T2 level. CT/Soft Tissue Neck WITH Contrast IMPRESSION: The palpable abnormality corresponds to a 2.7 cm x 1.7 cm solid nodule. A similar-appearing nodular density measuring 1.1 cm x 1 cm is seen in the anterior triangle of the left side of the neck. Electronically Signed: Jonnie Davila MD at 11:06 EDT , Service support ,
--- NOTE | 2021-02-17 13:35 | RAD_ITS ---
STUDY: X-RAY - LUMBAR SPINE REASON FOR EXAM: Male, 55 years old. Lumbago with sciatica. TECHNIQUE: 3 view(s) of the lumbar spine were obtained. COMPARISON: 6 days ago. FINDINGS: Normal lumbar lordosis. There is no substantial scoliosis. There is a normal alignment of the vertebrae. Stable intervertebral disc space narrowing at T12-L1 and L1-L2. Stable diffuse facet sclerosis. Vascular calcification. RAD/Lumbar Spine 2 or 3 Views IMPRESSION: Stable lumbar spine with no acute superimposed findings since the prior study 6 days ago. Electronically Signed: Ciaran Fulton MD at 13:50 EDT , Service support ,
== END ==
DX: R22.1 Localized swelling, mass and lump, neck (principal); M54.40 Lumbago with sciatica, unspecified side
CPT/HCPCS: 70491; 72100; Q9967

== ENCOUNTER → 2021-02-26 09:33 | Outpatient (CLI) | payer MEDICAID, SELFPAY ==
--- NOTE | 2021-02-26 | IMM_PTH ---
PATIENT: SHONDA COTTO LOC: [facility] U#:[id number] AGE/SX: 60/M ROOM: RE02/26/[address]: Dr. Klaus Maldonado MD : 1965 BED: DIS: SPEC #: [id number] RECD: 02/27/21 09:53 STATUS: ANTONELLA REQ #: [id number] [place]: 02/26/21 00:[address]: Klaus Maldonado DEPT: IMMUNOHISTOCHEMISTRY RECD BY: Zita Mehta ENTERED: 02/27/21 09:55 SP TYPE: IMMUNO OTHR DR: Rekha Lovell, REGIONAL DIRECTOR OF ADMISSIONS-[facility] Tissues: Neck, NOS Procedures: BCL-2 (add) BCL-6 (add) CD10 (add) CD20 (add) CD23 (add) CD45 (add) CD5 (add) CD79A (add) CYCLIN (add) KI-67 (add) CD3 (initial) PHYSICIAN & [address] [address] SPECIMEN INFORMATION: Tissue Source: Right upper neck mass Clinical Info: Right upper neck mass Specimen Number: [id number] CPT code: 40156, 80585 x11 METHODOLOGY: Deparaffinized sections of prefer/formalin-fixed tissue or PAP/DQ stained slides are incubated with monoclonal/polyclonal antibodies/oligonucleotide probes. Localization is made via biotin free immunoperoxidase method. Appropriate controls are performed and reacted as expected. Results on target cell population are indicated in the following table: RESULTS: ANTIBODY / CLONE RESULT CD3 (PS1) negative CD5 (SP10) positive dim CD20 (L26) negative CD43 (L60) positive CD45 (RP2/18) positive CD79a (11E3) positive CD10 (56C6) negative CD23 (1B12) negative BCL-2 (bcl-2/100/D5) positive BCL-6 (XP674Z/A8) negative Cyclin D1/BCL-1 (SP4) positive Ki-67 (30-9) positive, low These tests were developed and their performance characteristics determined by [facility]. They may not have been cleared or approved by the U.S. Food and Drug Administration. The FDA has determined that such clearance or approval is not necessary. The above immunohistochemical/dualISH markers are ordered and reviewed by the Pathologist. INTERPRETATION: Right upper neck mass, fine needle aspiration: Consistent with involvement by non-Hodgkin B-cell lymphoma, favor mantle cell lymphoma. This case has been reviewed in consultation with Dr. Porras who concurs with the above diagnosis. SJ:zahra 03/02/2021
--- NOTE | 2021-02-26 10:00 | ASPOS_PTH ---
PATIENT: SHONDA COTTO LOC: [facility] U#:[id number] AGE/SX: 60/M ROOM: RE02/26/[address]: Dr. Klaus Maldonado MD : 1965 BED: DIS: SPEC #: [id number] RECD: 02/26/21 10:30 STATUS: ANTONELLA NIELS #: [id number] [place]: 02/26/21 10:[address]: Klaus Maldonado DEPT: CYTOLOGY RECD BY: Margi Dumont ENTERED: 02/26/21 12:06 SP TYPE: ASP HERE OTHR DR: Rekha Lovell, ADVISORY INTERNSHIP-C [facility] Tissues: Neck, NOS Procedures: Surgery Specimen Level IV Cytology Other Fine Needle Asp on Site HEADER OPERATION: Fine needle aspiration right upper neck mass PRE-OP DIAGNOSIS: Right upper neck mass TISSUE SUBMITTED: FNA right upper neck mass DIAGNOSIS CYTOLOGY Right upper neck mass, FNA (smears and cell block): Consistent with involvement by non-Hodgkin's B-cell lymphoma, favor mantle cell lymphoma. Flow cytometry study from [facility] shows B-cell lymphoma, CD5 positive and CD23 negative. The complete report is viewable in the patient's EMR. See comment. SJ:rg 03/02/2021 COMMENT The specimen is evaluated at the time of FNA by Dr. Porras. Immediate Evaluation = Consistent with lymphoproliferative disorder. Immunohistochemistry ([id number]) supports the above diagnosis. FISH studies for Cyclin D1 (BCL1) is pending at this time. This case was reviewed and diagnosis discussed with Dr. Meyer on 03/19/21. Case has been reviewed in consultation with Dr. Porras who concurs with the above diagnosis. IDC:AM CYTOLOGY STUDY Slides are reviewed. CYTOLOGY GROSS Received is 0.25 ml of reddish fluid labeled with the patient's name, and designated right upper neck mass. Three imprints and three paps are made from the submitted fluid and a portion of fluid is submitted for flow cytometry studies and the rest is added to [employer] for cell block preparation. Submitted for cytology study. / AM:zahra 02/26/2021 TC:0 CPT: 43024, 25391, 10763 ADDENDUM ADDENDUM ADDENDUM ADDENDUM ADDENDUM ADDENDUM ADDENDUM 03/18/2021 10:37 ADDENDUM 06/29/2021 13:00 ADDENDUM 03/18/2021 10:37 ADDENDUM 03/18/2021 10:37 ADDENDUM 03/18/2021 10:37 ADDENDUM 03/18/2021 10:37 FLUORESCENCE IN-SITU HYBRIDIZATION (FISH) FROM [employer] INTERPRETATION: FISH probe (IGH/CCND1 for t(11;14)) cancelled on block ([id number]) due to two attempts poor hybridization. Please see complete report in e-chart or EMR This addendum is added to incorporate an outside pathology consultation report. The case was examined at [facility] (#[id number]) and the following diagnosis was rendered. Right upper neck mass, fine needle aspiration: Positive for malignant cells. Lymphoma. Please see complete above mentioned consultation report in EMR
--- NOTE | 2021-02-26 17:25 | PCM.DC.T&A ---
Allergies/Adverse Reactions: Allergies No Known Allergies Allergy (Verified 06/21/20 15:07) Medications to take at Discharge Atorvastatin Calcium 80 mg PO QHS 04/04/19 Famotidine 20 mg PO DAILY 04/04/19 Lisinopril 5 mg PO DAILY 04/04/19 Metformin HCl 1,000 mg PO BID 04/04/19 Ticagrelor [Brilinta] 90 mg PO BID 04/04/19 Primary Care Physician: [facility],Hailey Mercado [Primary Care Provider] - Test Results: Test results from this visit will be discussed in further detail at your follow-up appointment, if applicable.
== END ==
PROVIDERS: Referring Provider Otolaryngology; Visit Provider Otolaryngology
DX: R22.1 Localized swelling, mass and lump, neck (principal)
CPT/HCPCS: 10021; 88161; 88305; 88341; 88342

== ENCOUNTER → 2021-03-31 15:27 | Outpatient (CLI) | payer MEDICAID, SELFPAY ==
--- NOTE | 2021-03-31 15:30 | PET_ITS ---
EXAMINATION: FDG PET/CT INDICATIONS: A 55-year-old male with history of lymphoma presenting for apparent initial staging examination. COMPARISON EXAMINATION: None available INDEX LESION SIZE LUGANO SCORE SUV INTERPRETATION Bilateral inguinal regions, nodular 27.2 x 26.4-mm (largest) (frame 40) 4 3.4 (max) Fulfills quantitative criteria for viable neoplasm Mediastinal structures, bilateral thoracic perihilum 36.3 x 28.9-mm (largest) (frame 191) 4 3.5 (max) Fulfills quantitative criteria for viable neoplasm Bilateral axillary lymph node distributions 16.1 x 11.1-mm (largest) (frame 224) 4 2.6 (max) Fulfills quantitative criteria for viable neoplasm NON-INDEX LESION SIZE LUGANO SCORE SUV INTERPRETATION Bilateral hemithorax pulmonary parenchyma, diffuse, non-nodular X 1.7 (max) Quantitative criteria for viable neoplasm are not fulfilled TECHNIQUE: Following the intravenous administration of 13.64 mCi of F-18 deoxyglucose via the left antecubital fossa, multiplanar image acquisitions of the neck, chest, abdomen and pelvis to level of mid thigh, obtained at one hour post radiopharmaceutical administration contemporaneously interpreted with the current CT of the neck, chest, abdomen and pelvis to level of mid thigh, dated 03/31/21 via coregistration reveal: SERUM GLUCOSE LEVEL: 118 mg/dl. HEIGHT: 69 inches. WEIGHT: 170 lbs. FINDINGS: 1. There is multifocal increased FDG concentration observed in the bilateral inguinal lymph node distributions. The calculated maximal standard uptake value is 3.4. The [place] Deauville score is 4. The maximal axial diameter of the largest individual metabolic, morphologic abnormality on review of CT of the pelvis dated 03/31/21 is 27.2-mm (transverse) x 26.4-mm (AP). 2. Multiple foci of increased FDG distribution are defined in the superior-subcarinal mediastinum and bilateral thoracic perihilar regions generating a calculated maximal standard uptake value of 3.5. The [place] Deauville score is 4. The maximal axial diameter of the corresponding largest metabolic, morphologic abnormality on review of CT of the chest dated 03/31/21 is 36.3-mm (transverse) x 28.9-mm (AP). 3. There is an increase in FDG concentration observed in the bilateral axilla rendering a calculated maximal standard uptake value of 2.6. The [place] Deauville score is 4. The maximal axial diameter of the largest individual metabolic, morphologic abnormality on review of CT of the chest dated 03/31/21 is 16.1-mm (transverse) x 11.1-mm (AP). 4. Normal physiologic distribution of the radiopharmaceutical is apparent in the hepatic (2.1) and splenic parenchyma, both renal units, bladder and visualized intestinal tract. The visualized portion of the cerebral cortical-subcortical structures demonstrate symmetric and preserved glucose metabolism. Diffuse radiopharmaceutical concentration is noted in all four quadrants of the abdomen and pelvis. Diffuse, non-nodular increased fluorine labeled glucose uptake is noted in the bilateral lower lung sizanz-[id number]-[id number] lower lobes rendering a calculated maximal standard uptake value of 1.7. Quantitative criteria for neoplasm are not fulfilled. Pertinent CT findings are as follows: CHEST: Emphysematous changes are noted in the bilateral upper lung zones. Non-nodular parenchymal changes visualized in the right and left hemithorax demonstrate no evidence of quantitatively significant increased glucose metabolism. There is atherosclerotic calcification defined in the thoracic aorta without evidence of dilatation-aneurysm formation. Coronary arterial calcification is observed. Subcentimeter bilateral axillary soft tissue densities are ametabolic. ABDOMEN AND PELVIS: Oral contrast material is noted in the visualized intestinal tract. Cholelithiasis is defined. There is atherosclerotic calcification defined in the abdominal aorta without evidence of dilatation-aneurysm formation. Pelvic arterial calcification is demonstrated. Intravenous contrast is defined within the urinary bladder, bilateral proximal-distal ureters. SKELETAL: Degenerative changes are noted in the cervical, thoracic and lumbar spine without evidence of increased radiopharmaceutical concentration. PET/PET/CT Tumor Base -Thigh Subs IMPRESSION: 1. ABNORMAL EXAMINATION INDICATIVE OF MALIGNANT VIABLE NEOPLASM. 2. Increased glucose concentration observed in the bilateral inguinal, mediastinal and right-left thoracic perihilar and axillary lymph node distributions fulfills quantitative criteria for viable neoplasm. (Cheson et al, Journal of Clinical Oncology 32:3059, 2014). 3. Diffuse, non-nodular increased fluorine labeled glucose uptake noted in the bilateral hemithorax pulmonary parenchyma do not fulfill quantitative criteria for viable neoplasm. (Aaron et al, Annals of Internal Medicine, 138:724, 2003). Electronic Signature Calixto Ding D.O. Accurate Quantification of SUVs for this report are calculated using the exclusive [employer]? Technology.??Exclusive [place] Patent [employer]? Technology ([place].S. Patent No. [id number]). Electronically Signed: Calixto Ding DO at 9:35 EDT Tel , Service support ,
== END ==
PROVIDERS: Referring Provider Internal Medicine Hematology & Oncology; Visit Provider Internal Medicine Hematology & Oncology
DX: C85.11 Unspecified B-cell lymphoma, lymph nodes of head, face, and neck (principal); C83.18 Mantle cell lymphoma, lymph nodes of multiple sites
CPT/HCPCS: 78815; A9552

== ENCOUNTER 2021-06-13 08:55 | Outpatient (CLI) | payer MEDICAID, SELFPAY ==
[2021-04-22 08:53] VITALS: BMI 24.6
[2021-06-13 10:15] VITALS: BP 109/66; PULSE 76; RESP 17; TEMP 37.1; O2SAT 96
[2021-06-13 10:30] VITALS: BP 113/66; PULSE 79; RESP 16; TEMP 37.1; O2SAT 76
[2021-06-13 10:59] VITALS: BP 124/71; PULSE 79; RESP 16; O2SAT 96
[2021-06-13] MEDS: 0.9% Saline Lock 10 ML Syringe IV (11:08)
[2021-06-13 11:15] VITALS: BP 120/70; PULSE 79; RESP 16; TEMP 36.4; O2SAT 96
== END 2021-06-13 11:16 | disposition home or self-care (01) ==
LOC: MEDOUTP 08:55 → PCU 08:57
PROVIDERS: PCP Nurse Practitioner Adult Health; Referring Provider Internal Medicine Hematology & Oncology; Visit Provider Internal Medicine Hematology & Oncology
DX: D69.6 Thrombocytopenia, unspecified (principal); D64.81 Anemia due to antineoplastic chemotherapy
CPT/HCPCS: 36430; 86900; 86901; P9035; A4216

== ENCOUNTER 2021-06-20 19:43 | Emergency (ER) | payer MEDICAID, SELFPAY ==
[2021-04-22 08:53] VITALS: BMI 24.6
[2021-06-20] VITALS (7 sets, daily range): BP systolic 110–116; BP diastolic 63–77; PULSE 87–99; RESP 15–25; TEMP 36.9–37.9; O2SAT 93–97; BMI 23.9
--- NOTE | 2021-06-20 20:06 | EKG12_ITS ---
Test Reason : DYSRHYTHMIA Blood Pressure : / mmHG Vent. Rate : 092 BPM Atrial Rate : 092 BPM P-R Int : 174 ms QRS Dur : 086 ms QT Int : 352 ms P-R-T Axes : 067 025 042 degrees QTc Int : 435 ms Normal sinus rhythm Normal ECG Confirmed by SANGEETHA GARDNER, KAILEY ([id number]), purchase request editor VINCE SNOW ([id number]) on 06/25/2021 1:01:59 PM Referred By: DELMIS Confirmed By:KAILEY VIVAS MD
--- NOTE | 2021-06-20 20:06 | EX.ED.DYSGE1 ---
HPI History of Present Illness Chief Complaint: General Illness Informant: patient Narrative Narrative: 56-year-old male presents the emergency room after being referred here by his oncologist. 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 Last chemotherapy was June 05 few days later received a platelet cell transfusion he also received Neupogen on the . He states for the past week he has felt very unwell he has had generalized body aches worsening headache pain in legs. He notes decreased p.o. intake but he has been trying to drink fluids. He does note a cough. Today he had some posttussive emesis. He also notes diarrhea as well as a slight sore throat. On 06/15 oncology notes he had a white blood cell count of 24,000 which seemed a bit higher than it should be for him. Patient states he has been taking his temperature at home and one thermometer said he has a temperature of 101.2 and the next thermometer will say he does not have a fever. He does note chills. He states he has been in bed most of the week. [facility] Medical History (Updated 06/20/21 @ 21:[address] Pako Isabel, ) Alcohol abuse Anxiety Arthritis Atherosclerotic heart disease of [place] coronary artery without angina pectoris Chronic cough COPD (chronic obstructive pulmonary disease) Deep vein thrombosis (DVT) (04/21/21) Depression Essential (primary) hypertension History of steroid therapy Hyperlipidemia Mantle cell lymphoma (03/2021) Mantle cell lymphoma Nicotine dependence Pain aggravated by walking Restless legs ST elevation myocardial infarction (STEMI) of inferior wall (05/29/17) Suicidal ideation Type 2 diabetes mellitus Wears dentures Wears glasses Home Medications atorvastatin 80 mg PO QHS 04/04/19 [History Last Taken Unknown] famotidine 20 mg PO DAILY 04/04/19 [History Last Taken Unknown] metformin 1,000 mg PO BID 04/04/19 [History Last Taken Unknown] albuterol See Rx Instructions .ROUTE .COMPLEX 03/17/21 [History Last Taken Unknown] lisinopril 2.5 mg tablet 2.5 mg PO DAILY tab 04/22/21 [History Last Taken Unknown] allopurinol 300 mg PO DAILY 06/20/21 [History Last Taken Unknown] amoxicillin-pot clavulanate 875 mg PO Q12H #14 tablet 06/20/21 [Rx Last Taken Unknown] gabapentin 300 mg UD 06/20/21 [History Last Taken Unknown] hydrocodone-acetaminophen 1 tab PO Q6H PRN PRN 3 Days #12 tablet 06/20/21 [Rx Last Taken Unknown] Allergy/AdvReac Type Severity Reaction Status Date / Time No Known Allergies Allergy Verified 06/20/21 19:51 Family History Father Heart disease Surgical History History of bone marrow biopsy (04/01/21) History of coronary artery stent placement (05/29/17) History of herniorrhaphy Port-A-Cath in place (04/15/21) Social History Smoking Status: Current every day smoker tobacco type: cigarettes alcohol intake: current alcohol intake frequency: 3 or more drinks per day Alcohol type: beer details: 6-8 beers 5 days a week ROS ROS ED Constitutional Constitutional ED: Reports chills and fever(s); Denies weight loss Eyes Eyes: Denies change in vision or diplopia ENT ENT ED: Reports sore throat; Denies ear pain or rhinorrhea Cardiovascular Cardiovascular: Reports chest pain; Denies orthopnea, palpitations or racing heartbeat Respiratory/Chest Respiratory/Chest: Reports cough, dyspnea and dyspnea on exertion; Denies orthopnea Gastrointestinal Gastrointestinal: Reports diarrhea, nausea and vomiting; Denies abdominal pain Genitourinary Genitourinary ED: Reports dysuria and urinary frequency; Denies hematuria Musculoskeletal Musculoskeletal: Reports myalgias; Denies arthralgias Integumentary Denies abscess or rash Neurologic Neurologic: Reports headache(s); Denies weakness Psychiatric Psychiatric: Denies anxiety, depression, suicidal ideation or suicidal thoughts Endocrine Endocrinology: Denies polydipsia, polyphagia or polyuria Allergic/Immunologic Allergic/Immunologic ED: Denies mouth swelling, tongue swelling or urticaria EXAM Physical Exam Const Vital Signs: 06/20/21 19:45 06/20/21 20:41 06/20/21 20:42 Temperature 98.9 F 98.9 F Temperature Source Oral Temporal Pulse Rate 99 92 Respiratory Rate 15 25 H 16 Blood Pressure 114/77 110/71 Blood Pressure Mean 89 84 Pulse Ox 96 95 Oxygen Delivery Method Room Air Room Air 06/20/21 20:43 06/20/21 20:55 06/20/21 21:20 Temperature 98.4 F 100.3 F H Temperature Source Temporal Oral Pulse Rate 90 Respiratory Rate 20 H Blood Pressure 112/68 Blood Pressure Mean 82 Pulse Ox 95 93 Oxygen Delivery Method Room Air Room Air Positive well nourished and well developed General Appearance ED: well developed HEENT Reports normocephalic, head/scalp atraumatic and moist mucous membranes Eyes PERRL and EOMs intact bilaterally Neck no lymphadenopathy, supple and no JVD Resp normal respiratory effort and clear to auscultation bilaterally Cardio regular rate, regular rhythm and no murmurs GI normal to inspection, nondistended, normoactive bowel sounds and non-tender Palpation: soft Back/Spine no CVA tenderness and normal ROM Extremity normal to inspection General Extremety ED: Negative for edema General Extremity: Negative for edema Neuro oriented x3 and CN's II-XII intact bilaterally Sensorium / Orientation: alert Motor Exam: strength 5/5 throughout Psych mental status grossly normal Mood & Affect: Negative for depressed or tearful Skin no rashes or lesions noted and no wounds MDM MDM MDM Narrative Medical decision making narrative: Patient's white blood cell count is 9.2 neutrophil percent 66.6 monocytes 14.4 lymphocytes 7.1. INR and PTT are normal. Lactic acid is normal. CMP negative. Urinalysis normal. My interpretation of the chest x-ray is no acute process. Patient has remained afebrile here. We have blood cultures that have been obtained. At this point he is not neutropenic fever. He is reasonable start him on some Augmentin until the blood cultures are negative. I asked that he call his oncologist and see how he is doing on Tuesday morning. Return if worsening or concerns patient is comfortable this plan Lab Data Attestation: I reviewed the patient's lab results. Labs: Laboratory Results - last 24 hr 06/20/21 06/20/21 06/20/21 20:30 20:30 20:30 WBC 9.2 RBC 3.48 L Hgb 10.8 L Hct 31.3 L MCV 89.9 MCH 31.0 MCHC 34.5 RDW Std Deviation 43.7 RDW Coeff of Berta 13.5 Plt Count 436 MPV 8.7 Immature Gran % (Auto) 3.100 H Neut % (Auto) 66.6 Lymph % (Auto) 7.1 L Dolores % (Auto) 14.4 H Eos % (Auto) 8.2 H Baso % (Auto) 0.6 Absolute Neuts (auto) 6.1 Absolute Lymphs (auto) 0.66 L Nucleated RBC % 0.3 PT 13.3 INR 1.1 APTT 36.9 H Sodium 133 L Potassium 4.1 Chloride 100 Carbon Dioxide 27.0 Anion Gap 6 BUN 11 Creatinine 0.65 L Estim Creat Clear Calc 127.91 Est GFR (MDRD) Af Amer 163 Est GFR (MDRD) Non-Af 135 BUN/Creatinine Ratio 17.0 Glucose 158 H Lactic Acid Calcium 8.7 Total Bilirubin 0.20 AST 33 ALT 67 H Alkaline Phosphatase 230 H Total Protein 7.1 Albumin 3.1 L Globulin 4.0 Albumin/Globulin Ratio 0.8 L Urine Color Urine Clarity Urine pH Ur Specific [place] Urine Protein Urine Glucose (UA) Urine Ketones Urine Occult Blood Urine Nitrite Urine Bilirubin Urine Urobilinogen Ur Leukocyte Esterase Urine RBC Urine WBC Ur Squamous Epith Cells Urine Bacteria Urine Mucus 06/20/21 06/20/21 20:30 21:00 WBC RBC Hgb Hct MCV MCH MCHC RDW Std Deviation RDW Coeff of Berta Plt Count MPV Immature Gran % (Auto) Neut % (Auto) Lymph % (Auto) Dolores % (Auto) Eos % (Auto) Baso % (Auto) Absolute Neuts (auto) Absolute Lymphs (auto) Nucleated RBC % PT INR APTT Sodium Potassium Chloride Carbon Dioxide Anion Gap BUN Creatinine Estim Creat Clear Calc Est GFR (MDRD) Af Amer Est GFR (MDRD) Non-Af BUN/Creatinine Ratio Glucose Lactic Acid 1.1 Calcium Total Bilirubin AST ALT Alkaline Phosphatase Total Protein Albumin Globulin Albumin/Globulin Ratio Urine Color Yellow Urine Clarity Clear Urine pH 6.0 Ur Specific [place] 1.015 Urine Protein Negative Urine Glucose (UA) 250 H Urine Ketones Negative Urine Occult Blood Negative Urine Nitrite Negative Urine Bilirubin Negative Urine Urobilinogen Normal Ur Leukocyte Esterase Negative Urine RBC 0-5 SEEN Urine WBC 0 SEEN Ur Squamous Epith Cells 0 SEEN Urine Bacteria 0 SEEN Urine Mucus 0 SEEN Radiography Diagnostic Testing: Radiology Impression Chest X-Ray 06/20/21 20:40 IMPRESSION: Streaky opacities in the left lung base could represent atelectasis versus infection. Electronically Signed: Igor Davis MD at 21:10 EDT Tel , Service support , EKG Initial EKG: Attestation: I personally reviewed and interpreted this EKG as follows: Comments: Normal sinus rhythm rate of 92 beats a minute. No concerning features of ACS or ectopy Discharge Plan Triage Chief Complaint: General Illness ED Provider: Pako Isabel Dx/Rx/DC Orders Clinical Impression: Myalgia, Mantle cell lymphoma Instructions: ED Myalgias Prescriptions: New hydrocodone-acetaminophen [hydrocodone-acetaminophen] 1 TABLET tablet 1 tab PO Q6H PRN PRN (Reason: Pain) 3 Days Qty: 12 RF: 0 amoxicillin-pot clavulanate [amoxicillin-pot clavulanate] 875 MG tablet 875 mg PO Q12H Qty: 14 RF: 0 No Action lisinopril 2.5 mg tablet 2.5 mg PO DAILY RF: 0 atorvastatin 80 MG tablet 80 mg PO QHS RF: 0 famotidine 20 tablet 20 mg PO DAILY RF: 0 metformin 1,000 MG tablet 1,000 mg PO BID RF: 0 albuterol 90 mcg/actuation Aerosol See Rx Instructions .ROUTE .COMPLEX RF: 0 allopurinol 300 mg tablet 300 mg PO DAILY RF: 0 gabapentin 300 mg capsule 300 mg UD RF: 0 Primary Care Provider: Rekha Lovell Referrals: Rekha Lovell, [facility] [Primary Care Provider] - As Needed Disposition Disposition: Home, Self Care
[2021-06-20 20:40] LABS: Absolute Lymphocyte Count 0.66 X10^3/uL (0.83-4.51); Absolute Neutrophil Count 6.1 X10^3/uL (2.0-7.7); Basophil# 0.06 X10^3/uL; Basophil% 0.6 % (0-1); Eosinophil# 0.76 X10^3/uL; Eosinophils% 8.2 % (0-5); Hematocrit 31.3 % (40-54); Hemoglobin 10.8 g/dL (13.0-16.5); Lymphocyte # 0.66 X10^3/ul (0.83-4.51); Lymphocyte % 7.1 % (19-41); Mean Corp Hgb Conc 34.5 g/dL (32-36); Mean Corpuscular Volume 89.9 fL (80-94); Mean Platelet Vol. 8.7 fl (6.2-12.0); Monocyte# 1.33 X10^3/uL; Monocyte% 14.4 % (0-10); NRBC Flagged by Analyzer 0.3 % (0-5); Neutrophil # 6.14 X10^3/uL (2.7-7.7); Neutrophil % 66.6 % (47-70); Platelet Count 436 K/mm3 (150-450); RBC Distribution Width CV 13.5 % (11.6-14.6); RBC Distribution Width SD 43.7 fl (35.1-43.9); Red Blood Count 3.48 M/mm3 (4.6-6.2); White Blood Count 9.2 K/mm3 (4.4-11.0)
--- NOTE | 2021-06-20 20:40 | RAD_ITS ---
INDICATION: fever and cough EXAMINATION/TECHNIQUE: X-RAY - XR Chest 1 View COMPARISON: 04/04/2019. FINDINGS: Streaky opacities in the left lung base. The cardiomediastinal silhouette is unremarkable. Right-sided chest port with tip in the low SVC. No pleural effusion or pneumothorax. No acute osseous abnormalities. RAD/Chest 1 View (Portable) IMPRESSION: Streaky opacities in the left lung base could represent atelectasis versus infection. Electronically Signed: Igor Davis MD at 21:10 EDT Tel , Service support ,
[2021-06-20 20:50] LABS: International Normalized Ratio 1.1; Prothrombin Time (Protime)PT. 13.3 SECONDS (11.7-14.9)
[2021-06-20 20:51] LABS: Partial Thromboplast Time 36.9 Seconds (24.1-36.2)
[2021-06-20 20:56] LABS: ALB/GLOB Ratio 0.8 RATIO (0.9-2.4); AST(SGOT) 33 U/L (15-37); Alanine Aminotransfer ALT/SGPT 67 U/L (16-61); Albumin, Serum 3.1 g/dL (3.2-5.0); Alkaline Phosphatase 230 U/L (45-117); Anion Gap 6 (5-15); BUN 11 mg/dL (7-18); Calcium,Total 8.7 mg/dL (8.5-10.1); Chloride 100 mmol/L (98-107); Creatinine, Serum 0.65 mg/dL (0.70-1.30); EST Glomerular Filtration Rate 135 mL/min (>60); Est Glom Filt Rate - Afr Amer 163 mL/min (>60); Estimated Creatinine Clearance 127.91 ml/min; Glucose 158 mg/dL (74-106); Potassium 4.1 mmol/L (3.5-5.1); Protein, Total 7.1 g/dL (6.4-8.2); Sodium Level 133 mmol/L (136-145)
[2021-06-20] MEDS: Morphine 4 MG/ML Syringe IV (21:08)
[2021-06-20 21:10] LABS: Bacteria 0 SEEN /hpf (None Seen); Mucous, Urine 0 SEEN /hpf (<or=2+); Squamous Epithelial Cells - UA 0 SEEN /hpf (0-5); White Blood Cells 0 SEEN /hpf (0-5)
[2021-06-20 21:11] LABS: Color, Urine Yellow (Yellow); Glucose, Dipstick 250 mg/dl (Normal); Ketone-Dipstick Negative (Negative); Leukocyte Esterase-Dipstick Negative /ul (Negative); Nitrite-Dipstick Negative (Negative); Occult Blood-Urine Negative /ul (Negative); Protein-Dipstick Negative (Negative); Specific Gravity, Urine 1.015 (1.002-1.030); Urine Bilirubin Dipstick Negative (Negative); Urine Clarity Clear (Clear); Urine Urobilinogen Normal (Normal)
[2021-06-20 21:16] LABS: Lactic Acid 1.1 mmol/L (0.4-1.9)
[2021-06-20 21:19] LABS: Red Blood Cells-Urine 0-5 SEEN /hpf (0-5)
== END 2021-06-20 22:40 | disposition home or self-care (01) ==
PROVIDERS: Emergency Provider Emergency Medicine; PCP Nurse Practitioner Adult Health
DX: M79.10 Myalgia, unspecified site (principal); C83.10 Mantle cell lymphoma, unspecified site; E11.9 Type 2 diabetes mellitus without complications; E78.5 Hyperlipidemia, unspecified; F32.9 Major depressive disorder, single episode, unspecified; F41.9 Anxiety disorder, unspecified; I10 Essential (primary) hypertension; I25.2 Old myocardial infarction; I25.10 Atherosclerotic heart disease of native coronary artery without angina pectoris; J44.9 Chronic obstructive pulmonary disease, unspecified; M19.90 Unspecified osteoarthritis, unspecified site; Z79.84 Long term (current) use of oral hypoglycemic drugs; F17.210 Nicotine dependence, cigarettes, uncomplicated; Z86.718 Personal history of other venous thrombosis and embolism; Z79.899 Other long term (current) drug therapy
CPT/HCPCS: 36415; 36591; 71045; 80053; 81001; 83605; 85025; 85610; 85730; 87040; 87086; 87426; 87804; 93005; 96374; 99284; A4216

== ENCOUNTER 2021-07-18 00:11 | Emergency (ER) | payer MEDICAID, SELFPAY ==
[2021-07-18] VITALS (7 sets, daily range): BP systolic 83–124; BP diastolic 34–95; PULSE 105–116; RESP 18–32; TEMP 37.1–37.4; O2SAT 93–96; BMI 25.2
--- NOTE | 2021-07-18 00:27 | RAD_ITS ---
STUDY: X-RAY CHEST REASON FOR EXAM: Male, 56 years old. Neutropenic Fever TECHNIQUE: 1 view COMPARISON: 06/20/2021 FINDINGS: Right-sided implanted port is in stable position. Cardiomediastinal silhouette is unremarkable. Costophrenic angles are sharp. Linear scars are seen in the left lung base. Lungs are hyperinflated but otherwise clear. The trachea is midline. There is no pneumothorax. The bones are grossly intact. RAD/Chest PA and Lateral IMPRESSION: Hyperinflated lungs. No acute cardiopulmonary process. Electronically Signed: Edmundo Goodman MD at 2:15 EDT Tel , Service support ,
[2021-07-18 01:10] LABS: Absolute Lymphocyte Count 0.03 X10^3/uL (0.83-4.51); Absolute Neutrophil Count 11.9 X10^3/uL (2.0-7.7); Basophil# 0.01 X10^3/uL; Basophil% 0.1 % (0-1); Eosinophil# 0.13 X10^3/uL; Eosinophils% 1.1 % (0-5); Hematocrit 27.3 % (40-54); Hemoglobin 9.1 g/dL (13.0-16.5); Lymphocyte # 0.03 X10^3/ul (0.83-4.51); Lymphocyte % 0.2 % (19-41); Mean Corp Hgb Conc 33.3 g/dL (32-36); Mean Corpuscular Hgb 32.7 pg (27.0-32.0); Mean Corpuscular Volume 98.2 fL (80-94); Mean Platelet Vol. 8.9 fl (6.2-12.0); Monocyte# 0.01 X10^3/uL; Monocyte% 0.1 % (0-10); NRBC Flagged by Analyzer 0 % (0-5); Neutrophil # 11.85 X10^3/uL (2.7-7.7); Neutrophil % 97.5 % (47-70); POSITIVE DIFFERENTIAL YES; POSITIVE MORPHOLOGY YES; Platelet Count 185 K/mm3 (150-450); RBC Distribution Width CV 21.2 % (11.6-14.6); RBC Distribution Width SD 71.7 fl (35.1-43.9); Red Blood Count 2.78 M/mm3 (4.6-6.2); White Blood Count 12.2 K/mm3 (4.4-11.0)
[2021-07-18] MEDS: 0.9% Normal Saline 1,000 ML 50 ML IV (01:18)
[2021-07-18 01:32] LABS: ALB/GLOB Ratio 0.9 RATIO (0.9-2.4); AST(SGOT) 15 U/L (15-37); Alanine Aminotransfer ALT/SGPT 20 U/L (16-61); Albumin, Serum 2.8 g/dL (3.2-5.0); Alkaline Phosphatase 82 U/L (45-117); Anion Gap 6 (5-15); BUN 12 mg/dL (7-18); BUN/Creat Ratio 20.8 RATIO (10-20); Calcium,Total 8.5 mg/dL (8.5-10.1); Chloride 103 mmol/L (98-107); Creatinine, Serum 0.58 mg/dL (0.70-1.30); EST Glomerular Filtration Rate 154 mL/min (>60); Est Glom Filt Rate - Afr Amer 186 mL/min (>60); Estimated Creatinine Clearance 143.34 ml/min; Globulin 3.2 g/dL (2.2-4.2); Glucose 133 mg/dL (74-106); Potassium 3.6 mmol/L (3.5-5.1); Sodium Level 136 mmol/L (136-145)
--- NOTE | 2021-07-18 01:32 | EKG12_ITS ---
Test Reason : SOB Blood Pressure : / mmHG Vent. Rate : 107 BPM Atrial Rate : 107 BPM P-R Int : 158 ms QRS Dur : 088 ms QT Int : 334 ms P-R-T Axes : 063 021 052 degrees QTc Int : 445 ms Sinus tachycardia Otherwise normal ECG Confirmed by DEREK GARDNER, DEVORAH ([id number]), map editor VINCE SNOW ([id number]) on 07/20/2021 12:25:48 PM Referred By: DR AYON Confirmed By:DEVORAH REED MD
[2021-07-18 01:33] LABS: International Normalized Ratio 1.1; Prothrombin Time (Protime)PT. 13.7 SECONDS (11.7-14.9)
[2021-07-18 01:34] LABS: Lactic Acid 1.3 mmol/L (0.4-1.9)
[2021-07-18 01:45] LABS: Differential Indicated SCAN CRITERIA MET
[2021-07-18 01:47] LABS: Differential Comment SCANNED
[2021-07-18 01:54] LABS: Partial Thromboplast Time 35.5 Seconds (24.1-36.2)
[2021-07-18 01:58] LABS: CPK Total, Creatine Kinase 46 U/L (39-308); Uric Acid 3.1 mg/dL (3.5-7.2)
[2021-07-18 03:49] LABS: Bacteria 0 SEEN /hpf (None Seen); Mucous, Urine 0 SEEN /hpf (<or=2+); Red Blood Cells-Urine 0 SEEN /hpf (0-5); Squamous Epithelial Cells - UA 0 SEEN /hpf (0-5); White Blood Cells 0 SEEN /hpf (0-5)
[2021-07-18 03:50] LABS: Color, Urine Yellow (Yellow); Glucose, Dipstick 1000 mg/dl (Normal); Ketone-Dipstick Negative (Negative); Leukocyte Esterase-Dipstick Negative /ul (Negative); Nitrite-Dipstick Negative (Negative); Occult Blood-Urine Negative /ul (Negative); Protein-Dipstick 15 mg/dl (Negative); Specific Gravity, Urine 1.015 (1.002-1.030); Urine Bilirubin Dipstick Negative (Negative); Urine Clarity Clear (Clear); Urine Urobilinogen Normal (Normal); Urine pH 6.5 (5.0 - 8.0)
[2021-07-18] MEDS: oxyCODONE 5 MG Tablet PO (03:54)
--- NOTE | 2021-07-18 03:56 | EX.ED.DYSGE1 ---
HPI History of Present Illness Chief Complaint: Fever Informant: patient Narrative Narrative: Patient is a 56-year-old male currently undergoing chemotherapy for mantle cell lymphoma presenting with fever. Patient was discharged from [facility] today after finishing a 3-day course of chemotherapy. He notes he has been feeling rough all morning. When he got home this evening he notes he had a fever. Maximum temperature is 102.7. He did have an episode of vomiting and dizziness with movement which he states has happened with his chemo before. He was constipated while in the hospital but he did have a bowel movement today. He has a chronic headache, neck pain and back pain but this is unchanged. No rash reported. Has some chronic issues with urination but no acute change with that either. No other complaints at this time. His oncologist is Dr. Meyer Prior similar symptoms: Yes (Associated with chemotherapy) [facility] Medical History Alcohol abuse Anxiety Arthritis Atherosclerotic heart disease of [place] coronary artery without angina pectoris Chronic cough COPD (chronic obstructive pulmonary disease) Deep vein thrombosis (DVT) (04/21/21) Depression Essential (primary) hypertension History of steroid therapy Hyperlipidemia Mantle cell lymphoma (03/2021) Mantle cell lymphoma Nicotine dependence Pain aggravated by walking Restless legs ST elevation myocardial infarction (STEMI) of inferior wall (05/29/17) Suicidal ideation Type 2 diabetes mellitus Wears dentures Wears glasses Home Medications atorvastatin 80 mg PO QHS 04/04/19 [History Last Taken Unknown] famotidine 20 mg PO DAILY 04/04/19 [History Last Taken Unknown] metformin 1,000 mg PO BID 04/04/19 [History Last Taken Unknown] albuterol See Rx Instructions .ROUTE .COMPLEX 03/17/21 [History Last Taken Unknown] lisinopril 2.5 mg tablet 2.5 mg PO DAILY tab 04/22/21 [History Last Taken Unknown] allopurinol 300 mg PO DAILY 06/20/21 [History Last Taken Unknown] amoxicillin-pot clavulanate 875 mg PO Q12H #14 tablet 06/20/21 [Rx Last Taken Unknown] gabapentin 300 mg UD 06/20/21 [History Last Taken Unknown] hydrocodone-acetaminophen 1 tab PO Q6H PRN PRN 3 Days #12 tablet 06/20/21 [Rx Last Taken Unknown] Allergy/AdvReac Type Severity Reaction Status Date / Time No Known Allergies Allergy Verified 07/18/21 01:19 Family History Father Heart disease Surgical History History of bone marrow biopsy (04/01/21) History of coronary artery stent placement (05/29/17) History of herniorrhaphy Port-A-Cath in place (04/15/21) Social History Smoking Status: Current every day smoker tobacco type: cigarettes alcohol intake: current alcohol intake frequency: 3 or more drinks per day Alcohol type: beer details: 6-8 beers 5 days a week ROS ROS ED Constitutional Constitutional ED: Reports chills and fever(s) Eyes Eyes: Denies change in vision ENT ENT ED: Denies rhinorrhea or sore throat Cardiovascular Cardiovascular: Denies chest pain or palpitations Respiratory/Chest Respiratory/Chest: Denies cough or dyspnea Gastrointestinal Gastrointestinal: Reports constipation, nausea and vomiting; Denies abdominal pain or diarrhea Genitourinary Genitourinary ED: Reports dysuria; Denies hematuria or urinary frequency Musculoskeletal Musculoskeletal: Reports back pain, myalgias and neck pain; Denies arthralgias Integumentary Denies rash Neurologic Neurologic: Reports headache(s) Psychiatric Psychiatric: Denies depression EXAM Physical Exam Const Vital Signs: 07/18/21 00:12 07/18/21 01:14 07/18/21 01:15 Temperature 98.8 F 99.4 F H 99.4 F H Temperature Source Oral Oral Oral Pulse Rate 116 H 105 H 106 H Respiratory Rate 18 27 H 26 H Respiratory Effort Respiratory Pattern Blood Pressure 123/64 H 124/95 H 124/95 H Blood Pressure Mean 83 104 104 Pulse Ox 95 93 93 Oxygen Delivery Method Room Air Room Air Room Air 07/18/21 01:17 07/18/21 01:41 07/18/21 02:55 Temperature 99.4 F H Temperature Source Oral Pulse Rate 107 H 105 H Respiratory Rate 23 H 32 H Respiratory Effort Short of Breath Labored Respiratory Pattern Tachypnea Blood Pressure 83/34 L 119/67 Blood Pressure Mean 50 84 Pulse Ox 95 96 Oxygen Delivery Method Room Air Room Air 07/18/21 03:29 Temperature 99.2 F H Temperature Source Oral Pulse Rate 106 H Respiratory Rate 29 H Respiratory Effort Respiratory Pattern Blood Pressure 116/56 L Blood Pressure Mean 76 Pulse Ox 94 Oxygen Delivery Method Room Air Positive well nourished and well developed General Appearance ED: well developed HEENT Reports moist mucous membranes Negative for tenderness Eyes PERRL and EOMs intact bilaterally Neck supple and no meningeal signs Chest Wall inspection of chest normal Resp normal respiratory effort and clear to auscultation bilaterally Cardio regular rate, regular rhythm and no murmurs GI normal to inspection, nondistended, normoactive bowel sounds Extremity normal to inspection Neuro oriented x3 and CN's II-XII intact bilaterally Sensorium / Orientation: alert Motor Exam: general weakness Psych mental status grossly normal Skin no rashes or lesions noted and no wounds MDM MDM MDM Narrative Medical decision making narrative: Patient is evaluated for fever. He is currently undergoing chemotherapy for mantle cell lymphoma. Patient is afebrile in the emergency room however he is tachycardic. Blood pressure is normal. He appears nontoxic but uncomfortable. His work-up is remarkable for mild leukocytosis with a white blood cell count of 12.2. He does not have neutropenia. Lactate is normal. Blood cultures are pending. There is no IV source of infection including normal chest x-ray and urinalysis. His abdomen is soft and nontender. Case is discussed with his oncologist, Dr. Meyer, who suspects that his fevers actually side effect of his chemotherapy regiment. Does not think he needs antibiotics at this time. Stable for discharge and outpatient follow-up. Patient is agreeable to this plan of care. He is given return precautions. Patient is given his home dose of oxycodone in the emergency room. Lab Data Attestation: I reviewed the patient's lab results. Labs: Laboratory Results - last 24 hr 07/18/21 07/18/21 07/18/21 00:56 00:56 00:56 WBC 12.2 H RBC 2.78 L Hgb 9.1 L Hct 27.3 L MCV 98.2 H MCH 32.7 H MCHC 33.3 RDW Std Deviation 71.7 H RDW Coeff of Berta 21.2 H Plt Count 185 MPV 8.9 Immature Gran % (Auto) 1.000 H Neut % (Auto) 97.5 H Lymph % (Auto) 0.2 L [place] % (Auto) 0.1 Eos % (Auto) 1.1 Baso % (Auto) 0.1 Absolute Neuts (auto) 11.9 H Absolute Lymphs (auto) 0.03 L Nucleated RBC % 0 Differential Comment SCANNED PT 13.7 INR 1.1 APTT 35.5 Sodium 136 Potassium 3.6 Chloride 103 Carbon Dioxide 27.0 Anion Gap 6 BUN 12 Creatinine 0.58 L Estim Creat Clear Calc 143.34 Est GFR (MDRD) Af Amer 186 Est GFR (MDRD) Non-Af 154 BUN/Creatinine Ratio 20.8 H Glucose 133 H Lactic Acid Uric Acid Calcium 8.5 Total Bilirubin 0.60 AST 15 ALT 20 Alkaline Phosphatase 82 Total Creatine Kinase Total Protein 6.0 L Albumin 2.8 L Globulin 3.2 Albumin/Globulin Ratio 0.9 Urine Color Urine Clarity Urine pH Ur Specific [place] Urine Protein Urine Glucose (UA) Urine Ketones Urine Occult Blood Urine Nitrite Urine Bilirubin Urine Urobilinogen Ur Leukocyte Esterase 07/18/21 07/18/21 07/18/21 00:56 00:56 03:30 WBC RBC Hgb Hct MCV MCH MCHC RDW Std Deviation RDW Coeff of Berta Plt Count MPV Immature Gran % (Auto) Neut % (Auto) Lymph % (Auto) [place] % (Auto) Eos % (Auto) Baso % (Auto) Absolute Neuts (auto) Absolute Lymphs (auto) Nucleated RBC % Differential Comment PT INR APTT Sodium Potassium Chloride Carbon Dioxide Anion Gap BUN Creatinine Estim Creat Clear Calc Est GFR (MDRD) Af Amer Est GFR (MDRD) Non-Af BUN/Creatinine Ratio Glucose Lactic Acid 1.3 Uric Acid 3.1 L Calcium Total Bilirubin AST ALT Alkaline Phosphatase Total Creatine Kinase 46 Total Protein Albumin Globulin Albumin/Globulin Ratio Urine Color Yellow Urine Clarity Clear Urine pH 6.5 Ur Specific [place] 1.015 Urine Protein 15 H Urine Glucose (UA) 1000 H Urine Ketones Negative Urine Occult Blood Negative Urine Nitrite Negative Urine Bilirubin Negative Urine Urobilinogen Normal Ur Leukocyte Esterase Negative Radiography Chest X-Ray - ED: 1 View, Read by ED Physician, Read by Radiologist and No Infiltrates Diagnostic Testing: Radiology Impression Chest X-Ray 07/18/21 00:27 IMPRESSION: Hyperinflated lungs. No acute cardiopulmonary process. Electronically Signed: Edmundo Goodman MD at 2:15 EDT Tel , Service support , Rhythm Strip Rhythm Strip: Sinus Tach Rate: 107 Ectopy: None EKG Initial EKG: Attestation: I personally reviewed and interpreted this EKG as follows: Interpretation: Sinus Tachycardia Comments: Sinus tachycardia rate of 107 Normal axis Normal intervals Normal ST segments Discharge Plan Triage Chief Complaint: Fever ED Provider: Jazzy Vargas Dx/Rx/DC Orders Clinical Impression: Fever of unknown origin Instructions: ED FUO Adult Prescriptions: No Action lisinopril 2.5 mg tablet 2.5 mg PO DAILY RF: 0 atorvastatin 80 MG tablet 80 mg PO QHS RF: 0 famotidine 20 tablet 20 mg PO DAILY RF: 0 metformin 1,000 MG tablet 1,000 mg PO BID RF: 0 albuterol 90 mcg/actuation Aerosol See Rx Instructions .ROUTE .COMPLEX RF: 0 allopurinol 300 mg tablet 300 mg PO DAILY RF: 0 gabapentin 300 mg capsule 300 mg UD RF: 0 hydrocodone-acetaminophen [hydrocodone-acetaminophen] 1 TABLET tablet 1 tab PO Q6H PRN PRN (Reason: Pain) 3 Days Qty: 12 RF: 0 amoxicillin-pot clavulanate [amoxicillin-pot clavulanate] 875 MG tablet 875 mg PO Q12H Qty: 14 RF: 0 Primary Care Provider: Rekha Lovell Referrals: Baljeet Meyer DO [STAFF PHYSICIAN] - 2 Days Rekha Lovell NP-C [Primary Care Provider] - Disposition Disposition: Home, Self Care
== END 2021-07-18 04:26 | disposition home or self-care (01) ==
PROVIDERS: Emergency Provider Emergency Medicine; PCP Nurse Practitioner Adult Health
DX: R50.9 Fever, unspecified (principal); R00.0 Tachycardia, unspecified; C83.10 Mantle cell lymphoma, unspecified site; R51.9 Headache, unspecified; M54.2 Cervicalgia; M54.9 Dorsalgia, unspecified; K59.00 Constipation, unspecified; F17.210 Nicotine dependence, cigarettes, uncomplicated; Z95.5 Presence of coronary angioplasty implant and graft; E11.9 Type 2 diabetes mellitus without complications; E78.5 Hyperlipidemia, unspecified; F32.9 Major depressive disorder, single episode, unspecified; F41.9 Anxiety disorder, unspecified; I10 Essential (primary) hypertension; I25.10 Atherosclerotic heart disease of native coronary artery without angina pectoris; J44.9 Chronic obstructive pulmonary disease, unspecified; I25.2 Old myocardial infarction; M19.90 Unspecified osteoarthritis, unspecified site; Z79.84 Long term (current) use of oral hypoglycemic drugs; Z86.718 Personal history of other venous thrombosis and embolism
CPT/HCPCS: 36415; 36591; 71046; 80053; 81001; 82550; 83605; 84550; 85025; 85610; 85730; 87040; 87086; 87426; 93005; 99285; J7030; A4216

== ENCOUNTER → 2021-07-29 08:26 | Outpatient (CLI) | payer MEDICAID, SELFPAY ==
[2021-07-29 08:38] VITALS: BP 118/59; PULSE 92; RESP 16; TEMP 36.2; O2SAT 93; BMI 23.8
[2021-07-29 09:27] VITALS: BP 110/55; PULSE 83; RESP 16; TEMP 36.5; O2SAT 97
[2021-07-29 10:28] VITALS: BP 125/62; PULSE 80; RESP 16; TEMP 36.5; O2SAT 95
[2021-07-29 11:10] VITALS: BP 122/60; PULSE 75; RESP 16; TEMP 36.5; O2SAT 97
== END ==
PROVIDERS: PCP Nurse Practitioner Adult Health; Referring Provider Internal Medicine Hematology & Oncology; Visit Provider Internal Medicine Hematology & Oncology
DX: D64.9 Anemia, unspecified (principal)
CPT/HCPCS: 36430; 86850; 86900; 86901; 86920; 86922; J7040; P9040; A4216

== ENCOUNTER 2025-04-14 18:20 | Inpatient (IN) | payer MEDICARE, SELFPAY ==
[2025-04-14] VITALS (8 sets, daily range): BP systolic 96–123; BP diastolic 69–92; PULSE 71–95; RESP 18–20; TEMP 35.9–37.1; O2SAT 92–98; BMI 21.4
--- NOTE | 2025-04-14 19:51 | EKG12_ITS ---
Test Reason : FALL Blood Pressure : */* mmHG Vent. Rate : 82 BPM Atrial Rate : 82 BPM P-R Int : 182 ms QRS Dur : 82 ms QT Int : 372 ms P-R-T Axes : 76 25 47 degrees QTcB Int : 434 ms Normal sinus rhythm Normal ECG Confirmed by Herman Quinteros ([id number]), order editor KETAN SANTOS ([id number]) on 04/22/2025 1:08:29 PM Referred By: Confirmed By: Herman Quinteros
--- NOTE | 2025-04-14 19:51 | CT_ITS ---
EXAM: BRAIN/HEAD WITHOUT CONTRAST CLINICAL HISTORY: 59 y/o M with FALL. COMPARISON: None. TECHNIQUE: Routine CT imaging of the head without IV contrast. Additional multiplanar reformats were obtained. Dose reduction techniques were used including intermediate exposure control (AEC),iterative reconstruction technique, and/or mA and/or KV dose adjustments based on patient's size. FINDINGS: The ventricles, sulci and cisterns aremildly prominent, compatible with patient age. Mild patchy supratentorial white matter hypodensities. The whiteside-white matter interfaces are otherwise maintained. No acute intracranial hemorrhage or herniation. There is no midline shift, mass effect, or extra-axial collection. The orbits, visualized paranasal sinuses and mastoids are unremarkable. No acute calvarial fracture or scalp hematoma. CT/Brain/Head without Contrast IMPRESSION: No acute intracranial finding. Reading Location: [id number]
--- NOTE | 2025-04-14 19:54 | EX.ED.DYSGE1 ---
HPI History of Present Illness Chief Complaint: Fall Informant: patient Narrative Narrative: History of lung cancer on chemotherapy followed by Dr. Meyer. Last treatment 3 weeks ago. Gets it every 3 weeks. Past weeks had increasing weakness multiple falls denies any injuries. He states vomiting diarrhea nonbloody least 3 a day. He has been coughing. Per nursing he self cath patient states for the past month. Denies recent antibiotics. Reports he has had a fever at home. Per nursing was here prior to my evaluation and reported he was found on the ground. Patient denies any injuries from the fall. Denies any current pain. [facility] Medical History History of ST elevation myocardial infarction (STEMI) (05/29/17) Fever of unknown origin Cephalgia Myalgia Mantle cell lymphoma Deep vein thrombosis (DVT) (04/21/21) Nicotine dependence Mantle cell lymphoma (03/2021) Hyperlipidemia Type 2 diabetes mellitus Essential (primary) hypertension Atherosclerotic heart disease of [place] coronary artery without angina pectoris Wears dentures Wears glasses Alcohol abuse Anxiety Depression History of steroid therapy Chronic cough COPD (chronic obstructive pulmonary disease) Pain aggravated by walking Restless legs Arthritis Suicidal ideation Home Medications ?Medication ?Instructions ?Recorded ?Last Taken ?Type albuterol 90 mcg/actuation aerosol See Rx Instructions .Route .COMPLEX 03/17/21 Unknown History inhaler gabapentin 300 mg capsule 300 mg PO Q12H 06/20/21 04/13/25 History acetaminophen 500 mg tablet 500 mg PO Q8H PRN PRN pain 04/14/25 Unknown History budesonide 160 mcg-glycopyr 9 2 inh inhalation BID 04/14/25 Unknown History mcg-formot 4.8 mcg/actuation HFA inhaler (Breztri Aerosphere) bupropion HCl 150 mg 24 hr tablet, 150 mg PO BID 04/14/25 04/13/25 History extended release duloxetine 30 mg capsule,delayed 60 mg PO DAILY 04/14/25 Unknown History release glimepiride 1 mg tablet 1 mg PO DAILY 04/14/25 04/13/25 History metformin 1,000 mg tablet 1,000 mg PO BID 04/14/25 Unknown History olanzapine 5 mg tablet 5 mg PO DAILY 04/14/25 04/13/25 History ondansetron 8 mg disintegrating 8 mg PO Q8H PRN PRN nausea 04/14/25 Unknown History tablet oxycodone 10 mg tablet 10 mg PO Q6H PRN pain 04/14/25 Unknown History oxycodone 20 mg tablet,crush 20 mg PO BID 04/14/25 Unknown History resistant,extended release 12 hr (OxyContin) prednisone 10 mg tablet 10 mg PO DAILY 04/14/25 04/13/25 History prochlorperazine maleate 10 mg 10 mg PO Q6H PRN nausea and 04/14/25 Unknown History tablet vomiting Allergy/AdvReac Type Severity Reaction Status Date / Time No Known Allergies Allergy Verified 04/14/25 18:21 Family History Father Heart disease Surgical History History of herniorrhaphy History of bone marrow biopsy (04/01/21) Port-A-Cath in place (04/15/21) History of coronary artery stent placement (05/29/17) Social History Smoking Status: Current every day smoker tobacco type: cigarettes alcohol intake: current alcohol intake frequency: 3 or more drinks per day Alcohol type: beer details: 6-8 beers 5 days a week ROS ROS ED Constitutional Constitutional ED: Reports fever(s); Denies chills or sweats ENT ENT ED: Denies sore throat Cardiovascular Cardiovascular: Denies chest pain, leg edema, palpitations or racing heartbeat Respiratory/Chest Respiratory/Chest: Reports cough; Denies dyspnea or dyspnea on exertion Gastrointestinal Gastrointestinal: Reports diarrhea and vomiting; Denies abdominal pain or nausea Genitourinary Genitourinary ED: Denies dysuria, hematuria or urinary frequency Musculoskeletal Musculoskeletal: Denies back pain, extremity pain or neck pain Integumentary Denies rash or wounds Neurologic Neurologic: Reports weakness; Denies headache(s) or paresthesias EXAM Physical Exam Const Vital Signs: 04/14/25 18:21 04/14/25 18:27 04/14/25 19:36 Temperature 98.7 F 98.8 F Temperature Source Oral Oral Pulse Rate 83 95 Respiratory Rate 19 H 20 H Respiratory Effort Normal Blood Pressure 118/74 113/69 Blood Pressure Mean 88 83 Pulse Ox 98 92 Oxygen Delivery Method Room Air Room Air 04/14/25 19:38 04/14/25 20:10 04/14/25 21:00 Temperature 98.8 F Temperature Source Oral Pulse Rate 83 Respiratory Rate 20 H Respiratory Effort Blood Pressure 113/69 123/87 H 118/92 H Blood Pressure Mean 83 99 100 Pulse Ox 95 Oxygen Delivery Method Room Air 04/14/25 21:00 04/14/25 22:00 Temperature 98.8 F 97.8 F Temperature Source Oral Oral Pulse Rate 83 75 Respiratory Rate 20 H 20 H Respiratory Effort Blood Pressure 118/92 H 96/78 Blood Pressure Mean 100 84 Pulse Ox 98 97 Oxygen Delivery Method Room Air Room Air Positive cachectic General Appearance ED: cachectic and NAD Nutritional Appearance: cachectic HEENT HEENT Narrative: Mild dry mucosal membranes normocephalic and atraumatic Eyes General Eye ED: Yes normal appearance of both eyes Neck full ROM Chest Wall Chest Narrative: Right chest wall Mediport has been accessed clean, dry, intact. Chest: Negative for tenderness Resp normal respiratory effort and normal air movement Effort and Inspection: symmetric chest movement; Negative for respiratory distress Cardio regular rate, regular rhythm and no murmurs Peripheral Pulses: pulses 2+ throughout GI normal to inspection, nondistended, normoactive bowel sounds and non-tender Palpation: Negative for guarding or rebound tenderness present Extremity normal to inspection General Extremety ED: Negative for edema or tenderness General Extremity: Negative for edema Neuro no sensory deficits noted Neuro Narrative: Alert to person and place cannot tell me the year. Sensorium / Orientation: awake and alert Skin no rashes or lesions noted and no wounds MDM MDM MDM Narrative Medical decision making narrative: Interventions / MDM: Differential diagnosis: UTI, pneumonia, encephalopathy, weakness, falls, chemotherapy, vomiting diarrhea. Diagnosis considered but do not suspect: N/A My EKG interpretation: Sinus rate of 82, no ST changes. Imaging independently reviewed and interpreted by myself: 2 view chest x-ray: Right middle lobe infiltrate External documents reviewed: Records note history of mantle cell lymphoma managed by Dr. Meyer in 2020. Test considered but not ordered:N/A ED course: Patient multiple falls currently only alert and oriented to person and place. Nurse did cath for urine cloudy and dark. Afebrile. Reported fevers at home neutropenic labs were ordered. IV fluids ordered. CT head also ordered. CPK also ordered. Will reevaluate. 2113: Significant other is present confirms recent new diagnosis squamous cell cancer Workup pneumonia right middle lobe urinary tract infection with culture pending. He is covered Rocephin and Zithromax. CPK negative. Creatinine normal. CT brain negative. White count normal. Pulse ox 95 on room air. Clinically Getting better however still confused. He is not his baseline. Being managed through [facility] however they are working to get back to [facility]. No vomiting or diarrhea while in the ED. I spoke with Dr. Tenoriofor admission to PCU. 2217: Per nursing updated his medication list, he is on pain medicines of oxycodone etc. disease 20 mg twice daily along with 10 mg oxycodone every 6 hours for breakthrough pain. Reporting generalized pain that he deals with. Will order his breakthrough 10 mg of oxycodone. Re-evaluation: stable Disposition discussed with patient/family/significant other: Patient and significant other Case discussed with consulting clinician: Hospitalist This note was generated with Dinetouch dictation software. It may contain incorrect words, spelling, and punctuation that were not noted in checking the note before signing. Lab Data Attestation: I reviewed the patient's lab results. Labs: Laboratory Results - last 24 hr 04/14/25 04/14/25 19:30 19:38 WBC 10.6 RBC 3.47 L Hgb 11.8 L Hct 34.8 L MCV 100.3 H MCH 34.0 H MCHC 33.9 RDW Std Deviation 50.4 H RDW Coeff of Berta 13.8 Plt Count 307 MPV 10.4 Immature Gran % (Auto) 0.500 Neut % (Auto) 80.8 H Lymph % (Auto) 8.5 L [place] % (Auto) 7.5 Eos % (Auto) 1.5 Baso % (Auto) 1.2 H Absolute Neuts (auto) 8.6 H Absolute Lymphs (auto) 0.90 Nucleated RBC % 0 Sodium 135 Potassium 4.2 Chloride 100 Carbon Dioxide 21.9 Anion Gap 14 BUN 21 H Creatinine 0.64 L Estim Creat Clear Calc 116.41 Est GFR (MDRD) Non-Af 108 BUN/Creatinine Ratio 33.4 H Glucose 152 H Hemoglobin A1c 6.5 H Lactic Acid 1.2 Calcium 10.1 Magnesium 1.4 L Total Bilirubin 0.48 AST 67 H ALT 50 H Alkaline Phosphatase 208 H Total Creatine Kinase 68 Total Protein 7.0 Albumin 3.6 Globulin 3.4 Albumin/Globulin Ratio 1.1 Vitamin B12 1648 H Serum Folate 9.02 TSH 1.470 Urine Color Yellow Urine Clarity Cloudy Urine pH 6.[address] 1[address]015 Urine Protein 100 H Urine Glucose (UA) 250 H Urine Ketones 5 H Urine Occult Blood 50 H Urine Nitrite Positive H Urine Bilirubin Negative Urine Urobilinogen Normal Ur Leukocyte Esterase 500 H Urine RBC 5-10 SEEN Urine WBC >100 SEEN Ur Squamous Epith Cells 0 SEEN Urine Bacteria 4+ Urine Mucus 0 SEEN Urine Opiates Screen NEGATIVE U Buprenorphine Qual NEGATIVE Ur Oxycodone Screen PRESUMPTIVE POSITIVE Urine Methadone Screen NEGATIVE Urine Fentanyl Screen NEGATIVE Ur Barbiturates Screen NEGATIVE Ur Phencyclidine Scrn NEGATIVE Ur Amphetamines Screen NEGATIVE U Benzodiazepines Scrn NEGATIVE Urine Cocaine Screen NEGATIVE U Cannabinoids Screen NEGATIVE Ethyl Alcohol < 10.1 Radiography Diagnostic Testing: Clinical Impression(s) from Imaging Studies Brain CT 04/14/25 19:51 IMPRESSION: No acute intracranial finding. Reading Location: [facility] Chest X-Ray 04/14/25 20:20 IMPRESSION: 1. Ill-defined airspace opacities in the right middle and lower lobes, which may represent pneumonitis/pneumonia or neoplasm. Correlation with patient history recommended. 2. Emphysema. Reading Location: [facility] Discharge Plan Dx/Rx/DC Orders Clinical Impression: Pneumonia, Acute UTI, Encephalopathy acute, Clear cell squamous cell carcinoma, Immunocompromised state Disposition Disposition: [facility] Discharge Date/Time: 04/14/25 23:11
[2025-04-14 20:18] LABS: Mucous, Urine 0 SEEN /hpf (<or=2+); Squamous Epithelial Cells - UA 0 SEEN /hpf (0-5)
[2025-04-14] MEDS: 0.9% Normal Saline (1000mL) 1,000 ML 999 ML IV (20:20)
--- NOTE | 2025-04-14 20:20 | RAD_ITS ---
PROCEDURE: CHEST PA AND LATERAL 04/14/2025 REASON FOR EXAM: COUGH TECHNIQUE: Frontal and lateral views of the chest. COMPARISON: None. FINDINGS: Hardware: Right chest wall port with tip terminating in the right atrium. Heart: The heart size is normal. Mediastinum: There are atherosclerotic calcifications of the thoracic aorta. Probable right hilar adenopathy. Lungs: Emphysema, greatest in the bibasilar lungs, with scattered areas of scarring. Ill-defined airspace opacities within the right middle and lower lobes. No pleural effusion or pneumothorax. Bones: Degenerative changes are identified within the thoracic spine. RAD/Chest PA and Lateral IMPRESSION: 1. Ill-defined airspace opacities in the right middle and lower lobes, which ma y represent pneumonitis/pneumonia or neoplasm. Correlation with patient history recommended. 2. Emphysema. Reading Location: [id number]
[2025-04-14 20:30] LABS: Absolute Neutrophil Count 8.6 X10^3/uL (2.0-7.7); Basophil# 0.13 X10^3/uL; Basophil% 1.2 % (0-1); Color, Urine Yellow (Yellow); Eosinophil# 0.16 X10^3/uL; Eosinophils% 1.5 % (0-5); Glucose, Dipstick 250 mg/dl (Normal); Hematocrit 34.8 % (40-54); Hemoglobin 11.8 g/dL (13.0-16.5); Ketone-Dipstick 5 mg/dl (Negative); Leukocyte Esterase-Dipstick 500 /ul (Negative); Lymphocyte % 8.5 % (19-41); Mean Corp Hgb Conc 33.9 g/dL (32-36); Mean Corpuscular Volume 100.3 fL (80-94); Mean Platelet Vol. 10.4 fl (6.2-12.0); Monocyte# 0.79 X10^3/uL; Monocyte% 7.5 % (0-10); NRBC Flagged by Analyzer 0 % (0-5); Neutrophil # 8.57 X10^3/uL (2.7-7.7); Neutrophil % 80.8 % (47-70); Nitrite-Dipstick Positive (Negative); Occult Blood-Urine 50 /ul (Negative); Platelet Count 307 K/mm3 (150-450); Protein-Dipstick 100 mg/dl (Negative); RBC Distribution Width CV 13.8 % (11.6-14.6); RBC Distribution Width SD 50.4 fl (35.1-43.9); Red Blood Count 3.47 M/mm3 (4.6-6.2); Specific Gravity, Urine 1.015 (1.002-1.030); Urine Bilirubin Dipstick Negative (Negative); Urine Clarity Cloudy (Clear); Urine Urobilinogen Normal (Normal); White Blood Count 10.6 K/mm3 (4.4-11.0)
[2025-04-14 20:45] LABS: ALB/GLOB Ratio 1.1 RATIO (0.9-2.4); AST(SGOT) 67 U/L (<=37); Alanine Aminotransfer ALT/SGPT 50 U/L (<=46); Albumin, Serum 3.6 g/dL (3.4-4.8); Alkaline Phosphatase 208 U/L (40-129); Anion Gap 14 (5-15); BUN 21 mg/dL (4-19); BUN/Creat Ratio 33.4 RATIO (10-20); CPK Total, Creatine Kinase 68 U/L (24-195); Calcium,Total 10.1 mg/dL (7.6-11.0); Carbon Dioxide 21.9 mmol/L (21.0-32.0); Chloride 100 mmol/L (98-108); Creatinine, Serum 0.64 mg/dL (0.70-1.20); EST Glomerular Filtration Rate 108 (>60); Estimated Creatinine Clearance 116.41 ml/min (50-250); Globulin 3.4 g/dL (2.2-4.2); Glucose 152 mg/dL (70-99); Potassium 4.2 mmol/L (3.3-5.1); Sodium Level 135 mmol/L (133-145); Total Bilirubin 0.48 mg/dL (0.00-1.30)
[2025-04-14 20:47] LABS: Bacteria 4+ /hpf (None Seen); Red Blood Cells-Urine 5-10 SEEN /hpf (0-5); White Blood Cells >100 SEEN /hpf (0-5)
[2025-04-14] MEDS: Azithromycin 500 MG in 0.9% Normal Saline (250mL Bag) 250 ML 255 MG IV (21:30)
[2025-04-14] MEDS: Ceftriaxone 1 GM/50 ML BAG IV (21:30)
--- NOTE | 2025-04-14 21:55 | PCM.HP.STD ---
[facility] - General General Date of Admission: 04/14/25 Date of Service: 04/14/25 Chief Complaint: Fever, SOB, Cough, Diarrhea, Generalized Weakness and Confusion. HPI Narrative SHONDA WHITT, is a 59 M with a past medical history of essential hypertension; on lisinopril, hyperlipidemia; on atorvastatin, history of tobacco abuse; with subsequent COPD, CAD; s/p STEMI with subsequent LCx stent (2016), history of DM-2; of unknown control on linagliptin-metformin twice daily, diabetic neuropathy; on gabapentin, history of mantle cell lymphoma (2020); followed by Dr. Meyer, history of squamous cell carcinoma; on chemotherapy with last treatment ~3 weeks ago, history of DVT (2020), history of EtOH abuse, history of depression with anxiety; complicated by suicidal ideation currently not on treatment and OA; with chronic pain syndrome who presents to [facility] ER complaining of fever, shortness of breath, cough, diarrhea, generalized weakness and confusion. Mr. Whitt is not a fully reliable historian at this time so information was gathered from chart, medical staff and computer. According to the records he has had increasing weakness with multiple falls since his last chemotherapy treatment ~3 weeks ago culminating in him being found on the ground earlier today which precipitated his transfer here for further evaluation and treatment. There was no associated LOC or significant head trauma apparently associated with his falls. The patient's girlfriend confirmed to the ER physician that he has had nausea and vomiting with bilious emesis in addition to nonbloody diarrhea for the last 3 days. She also admits he has been having worsening cough and fever. In addition to all this he has to self catheterize himself for the past month but she denies recent antibiotic treatment. In the ER he was noted to have a UA positive for Acute Cystitis; with microscopic hematuria complicated by CXR that revealed ill-defined airspace opacities in the Right middle lobe and lower lobes which may represent pneumonitis/Pneumonia or neoplasm with clinical correlation recommended in addition to emphysema complicated by clinical evidence of intractable nausea and vomiting with bilious emesis and nonbloody diarrhea suspected to be due to Adverse Drug Reaction to recent chemotherapy all combining to cause Acute Metabolic Encephalopathy in the setting of chronic EtOH abuse and suspected withdrawal. He was then admitted to the PCU for ongoing care for stay that is expected to extend beyond 2 midnights. PFSH Medical History History of ST elevation myocardial infarction (STEMI) (05/29/17) Fever of unknown origin Cephalgia Myalgia Mantle cell lymphoma Deep vein thrombosis (DVT) (04/21/21) Nicotine dependence Mantle cell lymphoma (03/2021) Hyperlipidemia Type 2 diabetes mellitus Essential (primary) hypertension Atherosclerotic heart disease of [place] coronary artery without angina pectoris Wears dentures Wears glasses Alcohol abuse Anxiety Depression History of steroid therapy Chronic cough COPD (chronic obstructive pulmonary disease) Pain aggravated by walking Restless legs Arthritis Suicidal ideation Home Medications ?Medication ?Instructions ?Recorded ?Last Taken ?Type albuterol 90 mcg/actuation aerosol See Rx Instructions .Route .COMPLEX 03/17/21 Unknown History inhaler gabapentin 300 mg capsule 300 mg PO Q12H 06/20/21 04/13/25 History acetaminophen 500 mg tablet 500 mg PO Q8H PRN PRN pain 04/14/25 Unknown History budesonide 160 mcg-glycopyr 9 2 inh inhalation BID 04/14/25 Unknown History mcg-formot 4.8 mcg/actuation HFA inhaler (Breztri Aerosphere) bupropion HCl 150 mg 24 hr tablet, 150 mg PO BID 04/14/25 04/13/25 History extended release duloxetine 30 mg capsule,delayed 60 mg PO DAILY 04/14/25 Unknown History release glimepiride 1 mg tablet 1 mg PO DAILY 04/14/25 04/13/25 History metformin 1,000 mg tablet 1,000 mg PO BID 04/14/25 Unknown History olanzapine 5 mg tablet 5 mg PO DAILY 04/14/25 04/13/25 History ondansetron 8 mg disintegrating 8 mg PO Q8H PRN PRN nausea 04/14/25 Unknown History tablet oxycodone 10 mg tablet 10 mg PO Q6H PRN pain 04/14/25 Unknown History oxycodone 20 mg tablet,crush 20 mg PO BID 04/14/25 Unknown History resistant,extended release 12 hr (OxyContin) prednisone 10 mg tablet 10 mg PO DAILY 04/14/25 04/13/25 History prochlorperazine maleate 10 mg 10 mg PO Q6H PRN nausea and 04/14/25 Unknown History tablet vomiting Allergy/AdvReac Type Severity Reaction Status Date / Time No Known Allergies Allergy Verified 04/14/25 18:21 Family History Father Heart disease Surgical History History of herniorrhaphy History of bone marrow biopsy (04/01/21) Port-A-Cath in place (04/15/21) History of coronary artery stent placement (05/29/17) Social History Smoking Status: Current every day smoker tobacco type: cigarettes alcohol intake: current alcohol intake frequency: 3 or more drinks per day Alcohol type: beer details: 6-8 beers 5 days a week ROS ROS Narrative Full review of systems was not possible due to patient's altered mental status from acute metabolic encephalopathy. Vital Signs Vital Signs Vital Signs: 04/14/25 18:21 04/14/25 18:27 04/14/25 19:36 Temperature 98.7 F 98.8 F Temperature Source Oral Oral Pulse Rate 83 95 Respiratory Rate 19 H 20 H Respiratory Effort Normal Blood Pressure 118/74 113/69 Blood Pressure Mean 88 83 Pulse Ox 98 92 Oxygen Delivery Method Room Air Room Air 04/14/25 19:38 04/14/25 20:10 Temperature 98.8 F Temperature Source Oral Pulse Rate 83 Respiratory Rate 20 H Respiratory Effort Blood Pressure 113/69 123/87 H Blood Pressure Mean 83 99 Pulse Ox 95 Oxygen Delivery Method Room Air Weight Weight: 149 lb 11.102 oz Body Mass Index (BMI) 21.4 Physical Exam Const alert, no apparent distress and average body habitus Constitutional Narrative: Patient appears cachectic,chronically ill and older than stated age. General Appearance: cooperative Orientation / Consciousness: confused HEENT normocephalic, head/scalp atraumatic and hearing grossly normal bilaterally HEENT Narrative: Mucous membranes dry. Eyes PERRL, EOMs intact bilaterally and conjunctivae normal Neck no lymphadenopathy, supple and no JVD Resp normal respiratory effort, no retractions, no use of accessory muscles and clear to auscultation bilaterally Resp Narrative: Patient has right Mediport in place with site accessed, clean, dry and intact. Cardio regular rate and regular rhythm GI normal to inspection, nondistended, normoactive bowel sounds, soft to palpation, non-tender and non-distended Extremity normal to inspection, full ROM and no clubbing, cyanosis or edema Skin Skin Narrative: Patient has evidence of rash, abscess, wounds or jaundice. Neuro CN's II-XII intact bilaterally, moves all extremities and no focal motor deficits Sensorium / Orientation: awake, alert, oriented to person and oriented to place Speech: speech normal Psych affect normal Results Medical Records Data Attestation: I reviewed the patient's medical records Lab / Micro Data Attestation: I reviewed the patient's lab results. 04/15/25 04:06 04/15/25 04:06 Labs: Laboratory Results - last 24 hr 04/14/25 19:30: WBC 10.6, RBC 3.47 L, Hgb 11.8 L, Hct 34.8 L, MCV 100.3 H, MCH 34.0 H, MCHC 33.9, RDW Std Deviation 50.4 H, RDW Coeff of Berta 13.8, Plt Count 307, MPV 10.4, Immature Gran % (Auto) 0.500, Neut % (Auto) 80.8 H, Lymph % (Auto) 8.5 L, [place] % (Auto) 7.5, Eos % (Auto) 1.5, Baso % (Auto) 1.2 H, Absolute Neuts (auto) 8.6 H, Absolute Lymphs (auto) 0.90, Nucleated RBC % 0, Sodium 135, Potassium 4.2, Chloride 100, Carbon Dioxide 21.9, Anion Gap 14, BUN 21 H, Creatinine 0.64 L, Estim Creat Clear Calc 116.41, Est GFR (MDRD) Non-Af 108, BUN/Creatinine Ratio 33.4 H, Glucose 152 H, Calcium 10.1, Total Bilirubin 0.48, AST 67 H, ALT 50 H, Alkaline Phosphatase 208 H, Total Creatine Kinase 68, Total Protein 7.0, Albumin 3.6, Globulin 3.4, Albumin/Globulin Ratio 1.1, Urine Color Yellow, Urine Clarity Cloudy, Urine pH 6.0, Ur Specific [place] 1.015, Urine Protein 100 H, Urine Glucose (UA) 250 H, Urine Ketones 5 H, Urine Occult Blood 50 H, Urine Nitrite Positive H, Urine Bilirubin Negative, Urine Urobilinogen Normal, Ur Leukocyte Esterase 500 H, Urine RBC 5-10 SEEN, Urine WBC >100 SEEN, Ur Squamous Epith Cells 0 SEEN, Urine Bacteria 4+, Urine Mucus 0 SEEN Imaging Radiology Impression Brain CT 04/14/25 19:51 IMPRESSION: No acute intracranial finding. Reading Location: [facility] Chest X-Ray 04/14/25 20:20 IMPRESSION: 1. Ill-defined airspace opacities in the right middle and lower lobes, which may represent pneumonitis/pneumonia or neoplasm. Correlation with patient history recommended. 2. Emphysema. Reading Location: [facility] Assessment & Plan Assessment/Plan (1) Acute UTI: (2) Pneumonia: QUALIFIERS: Laterality: right Lung location: unspecified part of lung Pneumonia type: due to unspecified organism Qualified Code(s): J18.9 - Pneumonia, unspecified organism (3) Intractable nausea and vomiting: (4) Adverse drug reaction: QUALIFIERS: Encounter type: initial encounter Qualified Code(s): T50.905A - Adverse effect of unspecified drugs, medicaments and biological substances, initial encounter (5) Diarrhea: QUALIFIERS: Diarrhea type: unspecified type Qualified Code(s): R19.7 - Diarrhea, unspecified (6) Immunocompromised state: (7) Encephalopathy acute: (8) Mantle cell lymphoma: QUALIFIERS: Lymphoma site: unspecified region Qualified Code(s): C83.10 - Mantle cell lymphoma, unspecified site (9) Clear cell squamous cell carcinoma: (10) Generalized weakness: (11) Frequent falls: PLAN: Plan 1. UA positive for Acute Cystitis; with microscopic hematuria - Admit to PCU. Continue treatment with IV piperacillin-tazobactam and await culture & sensitivity data. 2. CXR that revealed ill-defined airspace opacities in the Right middle lobe and lower lobes which may represent pneumonitis/Pneumonia or neoplasm with clinical correlation recommended in addition to emphysema complicating #1 - Continue empiric IV piperacillin-tazobactam and check urinary antigens to Streptococcus pneumonia and Legionella. 3. Intractable nausea and vomiting with bilious emesis and nonbloody diarrhea compounding #1 & #2 - Cover with IV metronidazole until Clostridium difficile definitively ruled out. Give ondansetron IV prn for nausea and vomiting. Give promethazine IM prn for breakthrough nausea. 4. Adverse Drug Reaction to recent chemotherapy (used to treat mantle cell lymphoma since 2020) with Immunocompromised State likely triggering#1 - #3 - Noted. 5. Acute Metabolic Encephalopathy due to combination of #1 - #4 - Check TSH, B12, Folate, UDS and HELEN to evaluate for reversible causes of confusion. Otherwise, continue care as outlined above and monitor for improvement. 6. History of Mantle Cell Carcinoma and Squamous Cell Carcinoma; on chemotherapy complicating #1 - #5 - Noted. 7. Generalized weakness with frequent falls attributable to #1 - #6 - PT/OT and Case Management to consult and treat on-rounds in the AM with help appreciated in advance. 8. Essential hypertension; on lisinopril - Hold lisinopril until patient can tolerate oral intake. 9. Hyperlipidemia; on atorvastatin - Resume statin. 10. History of tobacco abuse; with subsequent COPD - Stable with no evidence of flare. Continue nebulizers prn. 11. CAD; s/p STEMI with subsequent LCx stent (2016) - Noted. 12. History of DM-2; of unknown control on linagliptin-metformin twice daily plus diabetic neuropathy; on gabapentin - ADA diet. FSBS q. AC/HS plus SSI. Hold oral hypoglycemics while inpatient. 13. History of DVT (2020) - Noted. 14. History of EtOH abuse - Patient denies and girlfriend affirms that he has had no recent EtOH abuse because he has not felt good enough to drink. 15. History of depression with anxiety; complicated by suicidal ideation currently not on treatment - Noted. 16. OA; with chronic pain syndrome on prn hydrocodone-APAP q. 6h prn - Noted. We will follow pain regimen and scales outlined in #1. 17. DVT/GI prophylaxis - Enoxaparin 40 mg sq daily. Pantoprazole 40 mg IV daily in light of #3. Total time: Approximately (but not less than) 75 minutes. Charges/Coding Visit Charges Inpatient E&M: 77508 Init Hosp L3
[2025-04-14] MEDS: oxyCODONE 5 MG Tablet 10 MG PO (22:24)
[2025-04-14 22:48] LABS: Blood Gas Specimen Type VEN; O2 Delivery Device Room Air; SITE Not entered; VBG BASE EXCESS 0 mmol/L (-1.0-3.5); VBG Bicarbonate 24 mmol/L (22-26); VBG PO2 44 mmHg (25-40); VBG SO2 82 % (50-70); VBG TCO2 25 mmol/L (23-33); VBG pCO2 35.5 mmHg (41-51); VBG pH 7.44 (7.32-7.42)
[2025-04-14 22:51] LABS: Magnesium 1.4 mg/dL (1.5-2.2)
[2025-04-14 22:51] LABS: Lactic Acid 1.2 mmol/L (0.0-2.0)
[2025-04-14 23:07] LABS: FOLATES,SERUM (FOLIC ACID) 9.02 ng/mL (4.60-34.80)
--- NOTE | 2025-04-14 23:09 | CT_ITS ---
PROCEDURE: CT CHEST, ABD, PELVIS WO CONT 04/14/2025 REASON FOR EXAM: PNEUMONIA SUSPECTED ON CXR WITH N/V/D AFTER CHEMO TECHNIQUE: Chest, abdomen and pelvis CT without intravenous contrast. Coronal and Sagittal reconstruction series were provided. One or more dose reduction techniques were used (e.g., Automated exposure control, adjustment of the mA and/or kV according to patient size, use of iterative reconstruction technique. RADIATION DOSE SUMMARY: CTDlvol: 7.42 mGy DLP: 664.36 mGycm FINDINGS: CT CHEST: Motion artifact. Right port with tip at the superior cavoatrial junction. The central airways appear patent. Band masslike area of consolidation at the anterior right upper lobe axial 46 may be inflammatory or infectious, correlate for any history of radiation treatment. Bilateral multifocal subpleural pulmonary nodules largest on the right 2.7 cm axial 60 and largest on the left 1.7 cm left lower lobe axial 87 with enlarged pretracheal, right hilar and subcarinal lymph nodes. Pulmonary emphysema with subpleural chronic interstitial changes bilaterally. Thoracic aorta appears within limits on noncontrast imaging. Coronary calcification with possible heavy calcification versus stent at the proximal circumflex. No pericardial or pleural effusion. CT ABDOMEN / PELVIS: Noncontrast technique limits evaluation of the abdominal and pelvic viscera. The liver, adrenal glands, kidneys, pancreas and spleen appear within limits on noncontrast imaging. A few very small calcified gallstones nondistended, noninflamed gallbladder. Heavy appearing aortoiliac atherosclerotic calcification. Abdominal aorta appears within limits. No adenopathy. No bowel dilation or free air. Normal caliber appendix without secondary signs. The bladder is mildly distended with wall thickening at the dome may be inflammatory or infectious. Prostate appears within limits. No free fluid. Left wrist osteoarthrosis large lucent formation at the distal radius possible large subchondral cyst formation with metastatic lesion not excluded and a sclerotic either scaphoid or lunate. T12-L1 spondylosis/discogenic change with severe disc space narrowing. Multilevel lower cervical, upper and midthoracic spondylosis/discogenic change. CT/CT Chest, Abd, Pelvis WO Cont IMPRESSION: Motion artifact. Right port with tip at the superior cavoatrial junction. The central airways appear patent. Band masslike area of consolidation at the anterior right upper lobe axial 46 may be inflammatory or infectious, correlate for any history of radiation treatment. Bilateral multifocal subpleural pulmonary nodules and mediastinal/hilar adenopa thy as above. Pulmonary emphysema with subpleural chronic interstitial changes bilaterally. The bladder is mildly distended with wall thickening at the dome may be inflamm atory or infectious. Cholelithiasis. Reading Location: [id number]
[2025-04-14 23:27] LABS: Alcohol, Blood (Medical)-Serum < 10.1 mg/dL (<=10.0)
[2025-04-14 23:43] LABS: Hemoglobin A1c 6.5 % (<=5.6)
[2025-04-14 23:56] LABS: Amphetamine Urine NEGATIVE (<1000 ng/mL); Barbiturate Urine NEGATIVE (< 200 ng/mL); Benzodiazepine Urine NEGATIVE (< 200 ng/mL); Buprenorphine Urine NEGATIVE (< 200 ng/mL); Cocaine Urine NEGATIVE (< 300 ng/mL); Fentanyl, Urine NEGATIVE; Methadone Urine NEGATIVE (< 300 ng/mL); Opiates Urine NEGATIVE (< 300 ng/mL); Oxycodone, Urine PRESUMPTIVE POSITIVE (< 100 ng/mL); PCP Urine NEGATIVE (< 25 ng/mL); THC Urine NEGATIVE (< 50 ng/mL)
[2025-04-14 23:59] LABS: Vitamin B12 1648 pg/mL (180-914)
[2025-04-15] VITALS (7 sets, daily range): BP systolic 115–136; BP diastolic 60–73; PULSE 61–78; RESP 14–18; TEMP 35.9–36.3; O2SAT 95–98; BMI 20.3
[2025-04-15] MEDS: Scopolamine 1mg/72hr Patch 1 PATCH TD (00:06)
[2025-04-15] MEDS: 0.9% Saline Lock 10 ML Syringe IV (00:06)
[2025-04-15] MEDS: 0.9% Normal Saline (1000mL) 1,000 ML 125 ML IV ×2 (00:07→12:18)
[2025-04-15] MEDS: Pantoprazole Sodium 40 MG in 0.9% Normal Saline (100mL MB+) 100 ML 330 MG IV ×2 (00:07→20:02)
[2025-04-15] MEDS: metroNIDAZOLE 500 MG/100 ML BAG 100 MG IV ×3 (04:40→20:01)
[2025-04-15 05:00] LABS: Absolute Lymphocyte Count 1.11 X10^3/uL (0.83-4.51); Absolute Neutrophil Count 5.5 X10^3/uL (2.0-7.7); Basophil# 0.15 X10^3/uL; Basophil% 1.9 % (0-1); Eosinophils% 3.8 % (0-5); Hematocrit 32.8 % (40-54); Hemoglobin 11.1 g/dL (13.0-16.5); Lymphocyte # 1.11 X10^3/ul (0.83-4.51); Lymphocyte % 14.1 % (19-41); Mean Corp Hgb Conc 33.8 g/dL (32-36); Mean Corpuscular Hgb 34.5 pg (27.0-32.0); Mean Corpuscular Volume 101.9 fL (80-94); Monocyte% 10.2 % (0-10); NRBC Flagged by Analyzer 0 % (0-5); Neutrophil # 5.46 X10^3/uL (2.7-7.7); Neutrophil % 69.6 % (47-70); Platelet Count 262 K/mm3 (150-450); RBC Distribution Width CV 13.8 % (11.6-14.6); Red Blood Count 3.22 M/mm3 (4.6-6.2); White Blood Count 7.9 K/mm3 (4.4-11.0)
[2025-04-15 05:27] LABS: ALB/GLOB Ratio 1.1 RATIO (0.9-2.4); AST(SGOT) 68 U/L (<=37); Alanine Aminotransfer ALT/SGPT 53 U/L (<=46); Albumin, Serum 3.4 g/dL (3.4-4.8); Alkaline Phosphatase 192 U/L (40-129); Anion Gap 13 (5-15); BUN 20 mg/dL (4-19); BUN/Creat Ratio 27.9 RATIO (10-20); Calcium,Total 9.1 mg/dL (7.6-11.0); Carbon Dioxide 19.8 mmol/L (21.0-32.0); Chloride 103 mmol/L (98-108); Creatinine, Serum 0.71 mg/dL (0.70-1.20); EST Glomerular Filtration Rate 105 (>60); Estimated Creatinine Clearance 99.52 ml/min (50-250); Glucose 123 mg/dL (70-99); Phosphorus 3.1 mg/dL (2.7-4.5); Potassium 4.1 mmol/L (3.3-5.1); Protein, Total 6.4 g/dL (5.9-8.4); Sodium Level 136 mmol/L (133-145); Total Bilirubin 0.42 mg/dL (0.00-1.30)
[2025-04-15] MEDS: Piperacil/Tazobactam 3.375 GM in 0.9% Normal Saline (50mL MB+) 50 ML IV ×3 (06:50→21:16)
[2025-04-15] MEDS: Ipratropium/Albuterol Sulfate 3 ML AMPUL.NEB INHALATION ×2 (07:54→18:54)
[2025-04-15 08:10] LABS: Magnesium 1.3 mg/dL (1.5-2.2)
[2025-04-15] MEDS: Enoxaparin 40 MG/0.4 ML Syringe SC (08:11)
[2025-04-15] MEDS: predniSONE 10 MG Tablet PO (08:12)
[2025-04-15] MEDS: buPROPion (XL) 150 MG TABLET.XL PO ×2 (08:12→19:57)
[2025-04-15] MEDS: OLANZapine 5 MG/TAB TAB.RAPDIS PO (08:12)
[2025-04-15] MEDS: Gabapentin 300 MG Capsule PO ×2 (08:12→12:19)
[2025-04-15] MEDS: Lactobacillis Acidophilus 1 CAP PO ×2 (08:12→19:53)
[2025-04-15] MEDS: DULoxetine Hcl 60 MG Capsule PO (08:12)
[2025-04-15] MEDS: Magnesium Sulfate 2 GM in Dextrose 5%-Water (100mL Bag) 100 ML IV ×2 (09:05→14:57)
[2025-04-15] MEDS: oxyCODONE HCl Cr 10 MG Tablet 20 MG PO ×2 (10:20→21:15)
[2025-04-15] MEDS: Insulin Lispro 100 UNIT/ML INSULN.PEN SC ×3 (11:10→21:19)
[2025-04-15 11:30] LABS: Bedside Glucose 264 mg/dL (74-106)
--- NOTE | 2025-04-15 13:18 | PN_ITS ---
Subjective Subjective Patient seen and examined. He had no active complaints. He denied any fever, chills, cough, chest pain, palpitations, dizziness, nausea, vomiting or any other symptoms. Review of systems is otherwise negative. He is on room air. Objective Data Objective Data Vital Signs: Vital Signs Temp Pulse Resp BP Pulse Ox O2 Del Method 97.4 F L 71 14 136/69 H 98 Room Air 04/15/25 08:10 04/15/25 08:10 04/15/25 08:10 04/15/25 08:10 04/15/25 08:10 04/15/25 08:29 Oxygen Delivery Method Room Air Weight: 141 lb 15.643 oz Body Mass Index (BMI) 20.3 Intake & Output: Intake and Output for Last 24 Hours 04/13/25 04/14/25 04/15/25 23:59 23:59 23:59 Intake Total 1305 / 1305 1263.58 / 1263.58 Output Total 900 / 900 Balance 1305 / 1305 363.58 / 363.58 Lab / Micro Data 04/15/25 04:06 04/15/25 04:06 Labs: Laboratory Results - last 24 hr 04/14/25 19:30: WBC 10.6, RBC 3.47 L, Hgb 11.8 L, Hct 34.8 L, MCV 100.3 H, MCH 34.0 H, MCHC 33.9, RDW Std Deviation 50.4 H, RDW Coeff of Berta 13.8, Plt Count 307, MPV 10.4, Immature Gran % (Auto) 0.500, Neut % (Auto) 80.8 H, Lymph % (Auto) 8.5 L, [place] % (Auto) 7.5, Eos % (Auto) 1.5, Baso % (Auto) 1.2 H, Absolute Neuts (auto) 8.6 H, Absolute Lymphs (auto) 0.90, Nucleated RBC % 0, Sodium 135, Potassium 4.2, Chloride 100, Carbon Dioxide 21.9, Anion Gap 14, BUN 21 H, C reatinine 0.64 L, Estim Creat Clear Calc 116.41, Est GFR (MDRD) Non-Af 108, B UN/Creatinine Ratio 33.4 H, Glucose 152 H, Hemoglobin A1c 6.5 H, Calcium 10.1, M agnesium 1.4 L, Total Bilirubin 0.48, AST 67 H, ALT 50 H, Alkaline Phosphatase 208 H, Total Creatine Kinase 68, Total Protein 7.0, Albumin 3.6, Globulin 3.4, Albumin/Globulin Ratio 1.1, Vitamin B12 1648 H, TSH 1.470, Urine Color Yellow, Urine Clarity Cloudy, Urine pH 6.0, Ur Specific [place] 1.015, Urine Protein 100 H, Urine Glucose (UA) 250 H, Urine Ketones 5 H, Urine Occult Blood 50 H, Urine Nitrite Positive H, Urine Bilirubin Negative, Urine Urobilinogen Normal, Ur Leukocyte Esterase 500 H, Urine RBC 5-10 SEEN, Urine WBC >100 SEEN, Ur Squamous Epith Cells 0 SEEN, Urine Bacteria 4+, Urine Mucus 0 SEEN, Urine Opiates Screen NEGATIVE, U Buprenorphine Qual NEGATIVE, Ur Oxycodone Screen PRESUMPTIVE POSITIVE, Urine Methadone Screen NEGATIVE, Urine Fentanyl Screen NEGATIVE, Ur Barbiturates Screen NEGATIVE, Ur Phencyclidine Scrn NEGATIVE, Ur Amphetamines Screen NEGATIVE, U Benzodiazepines Scrn NEGATIVE, Urine Cocaine Screen NEGATIVE, U Cannabinoids Screen NEGATIVE, Ethyl Alcohol < 10.1 04/14/25 19:38: Lactic Acid 1.2, Serum Folate 9.02 04/15/25 04:06: WBC 7.9, RBC 3.22 L, Hgb 11.1 L, Hct 32.8 L, MCV 101.9 H, MCH 34.5 H, MCHC 33.8, RDW Std Deviation 52.0 H, RDW Coeff of Berta 13.8, Plt Count 262, MPV 10.0, Immature Gran % (Auto) 0.400, Neut % (Auto) 69.6, Lymph % (Auto) 14.1 L, [place] % (Auto) 10.2 H, Eos % (Auto) 3.8, Baso % (Auto) 1.9 H, Absolute Neuts (auto) 5.5, Absolute Lymphs (auto) 1.11, Nucleated RBC % 0, Sodium 136, Potassium 4.1, Chloride 103, Carbon Dioxide 19.8 L, Anion Gap 13, BUN 20 H, Creatinine 0.71, Estim Creat Clear Calc 99.52, Est GFR (MDRD) Non-Af 105, B UN/Creatinine Ratio 27.9 H, Glucose 123 H, Calcium 9.1, Phosphorus 3.1, M agnesium 1.3 L, Total Bilirubin 0.42, AST 68 H, ALT 53 H, Alkaline Phosphatase 192 H, Total Protein 6.4, Albumin 3.4, Globulin 3.0, Albumin/Globulin Ratio 1.1 04/15/25 11:08: POC Glucose 264 H Micro: Microbiology 04/14/25 22:34 Mucosa - Nose SARS-CoV-2, Influenza & RSV (PCR) - Final ABG Data ABG results: ABG 04/14/25 22:43 Specimen Type MACK Sample Site Not entered VBG pH 7.44 H VBG pO2 44 H VBG HCO3 24 VBG Total CO2 25 VBG O2 Sat (Calc) 82 H VBG Base Excess 0 POC Mix VBG pCO2 Pt Tmp 35.5 L O2 Delivery Device Room Air Radiography Diagnostic Testing: Radiology Impression Brain CT 04/14/25 19:51 IMPRESSION: No acute intracranial finding. Reading Location: [facility] Chest X-Ray 04/14/25 20:20 IMPRESSION: 1. Ill-defined airspace opacities in the right middle and lower lobes, which may represent pneumonitis/pneumonia or neoplasm. Correlation with patient history recommended. 2. Emphysema. Reading Location: [facility] Chest/Abdomen/Pelvis CT 04/14/25 23:09 IMPRESSION: Motion artifact. Right port with tip at the superior cavoatrial junction. The central airways appear patent. Band masslike area of consolidation at the anterior right upper lobe axial 46 may be inflammatory or infectious, correlate for any history of radiation treatment. Bilateral multifocal subpleural pulmonary nodules and mediastinal/hilar adenopathy as above. Pulmonary emphysema with subpleural chronic interstitial changes bilaterally. The bladder is mildly distended with wall thickening at the dome may be inflammatory or infectious. Cholelithiasis. Reading Location: [facility] Physical Exam Const alert, oriented x3 and no apparent distress Constitutional Narrative: very frail General Appearance: cooperative HEENT normocephalic, head/scalp atraumatic, moist oral mucous membranes, oropharynx normal and gingiva normal Eyes PERRL and EOMs intact bilaterally Neck no lymphadenopathy and supple Lymph Lymphatic: no lymphadenopathy noted and no lymphedema noted Resp Resp Narrative: mildly diminished breath sounds bibasally, no wheezes or crackles. On room air. Cardio regular rate, regular rhythm, S1 normal heart sound, S2 normal heart sound and no murmurs GI normal to inspection, nondistended, normoactive bowel sounds, soft to palpation, non-tender and non-distended Extremity normal capillary refill, no clubbing, cyanosis or edema and no calf tenderness General Extremity: no tenderness to palpation of joints or extremities Skin Skin Narrative: chemo port in situ Neuro CN's II-XII intact bilaterally, no focal motor deficits and no sensory deficits noted Motor Exam: strength 5/5 throughout and general weakness Psych thought process normal, cooperative and affect normal Appearance: appropriate Assessment & Plan Assessment/Plan (1) Intractable nausea and vomiting: (2) Acute UTI: (3) Pneumonia: QUALIFIERS: Laterality: right Lung location: unspecified part of lung Pneumonia type: due to unspecified organism Qualified Code(s): J18.9 - Pneumonia, unspecified organism (4) Generalized weakness: (5) Frequent falls: PLAN: Plan #COmmunity acquired pneumonia * Chest x-ray showed ill-defined opacities in the right middle lobe and lower lobe airspace opacities which may represent pneumonitis versus pneumonia or neoplasm * On IV Zosyn. Urine for strep and Legionella negative. * Breathing treatments bronchodilators. Titrate oxygen as needed to maintain saturation above 90%. #Acute gastroenteritis: * She was admitted with intractable nausea and vomiting as well as diarrhea. * Started on IV metronidazole. C. difficile is pending. Diarrhea has improved. On IV Zofran as needed * #UTI: Urinalysis does show evidence of UTI. On IV Zosyn which should cover UTI also. #Hypomagnesemia: Mg is 1.3. Will replace and trend. # Elevated liver enzymes: * AST, ALT and ALP are elevated. * This may be due to the chemotherapy. * Will monitor and trend. * If continues to trend upwards we will do further workup. 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 #Debility and weakness with frequent falls #Benign essential hypertension: On lisinopril. This was held due to incessant nausea and vomiting. IV hydralazine as needed #Hyperlipidemia: On statin #CAD s/p stents: On statin #History of type 2 diabetes mellitus: * On linagliptin and metformin. Insulin sliding scale. Accu-Cheks ACHS. Glipizide and metformin on hold. #History of anxiety with depression: on duloxetine and bupropion #History of osteoarthritis with chronic pain: On hydrocodone chronically. DVT prophylaxis: Lovenox Charges/Coding Visit Charges Inpatient E&M: 86710 Subs Hosp L2
[2025-04-15] MEDS: Gabapentin 600 MG Tablet PO (17:08)
[2025-04-15 17:27] LABS: Bedside Glucose 288 mg/dL (74-106)
[2025-04-15] MEDS: Acetaminophen 500 MG Tablet PO (19:52)
[2025-04-15 21:39] LABS: Bedside Glucose 288 mg/dL (74-106)
[2025-04-16] VITALS (11 sets, daily range): BP systolic 107–138; BP diastolic 60–86; PULSE 70–97; RESP 16–18; TEMP 35.9–36.6; O2SAT 94–97; BMI 21.8
[2025-04-16] MEDS: metroNIDAZOLE 500 MG/100 ML BAG 100 MG IV (05:04)
[2025-04-16] MEDS: Piperacil/Tazobactam 3.375 GM in 0.9% Normal Saline (50mL MB+) 50 ML IV ×3 (06:10→22:20)
[2025-04-16 06:37] LABS: Bedside Glucose 121 mg/dL (74-106)
[2025-04-16 07:17] LABS: Absolute Lymphocyte Count 1.06 X10^3/uL (0.83-4.51); Absolute Neutrophil Count 6.3 X10^3/uL (2.0-7.7); Basophil# 0.13 X10^3/uL; Basophil% 1.5 % (0-1); Eosinophils% 5.7 % (0-5); Hematocrit 29.5 % (40-54); Hemoglobin 9.7 g/dL (13.0-16.5); Lymphocyte # 1.06 X10^3/ul (0.83-4.51); Mean Corp Hgb Conc 32.9 g/dL (32-36); Mean Corpuscular Hgb 33.8 pg (27.0-32.0); Mean Corpuscular Volume 102.8 fL (80-94); Mean Platelet Vol. 10.3 fl (6.2-12.0); Monocyte# 0.74 X10^3/uL; Monocyte% 8.4 % (0-10); NRBC Flagged by Analyzer 0 % (0-5); Neutrophil # 6.34 X10^3/uL (2.7-7.7); Neutrophil % 71.8 % (47-70); Platelet Count 258 K/mm3 (150-450); RBC Distribution Width CV 13.6 % (11.6-14.6); RBC Distribution Width SD 51.3 fl (35.1-43.9); Red Blood Count 2.87 M/mm3 (4.6-6.2); White Blood Count 8.8 K/mm3 (4.4-11.0)
[2025-04-16 07:47] LABS: Anion Gap 8 (5-15); BUN 11 mg/dL (4-19); Calcium,Total 8.5 mg/dL (7.6-11.0); Carbon Dioxide 23.1 mmol/L (21.0-32.0); Chloride 106 mmol/L (98-108); Creatinine, Serum 0.59 mg/dL (0.70-1.20); EST Glomerular Filtration Rate 110 (>60); Estimated Creatinine Clearance 128.32 ml/min (50-250); Glucose 123 mg/dL (70-99); Phosphorus 2.4 mg/dL (2.7-4.5); Sodium Level 137 mmol/L (133-145)
[2025-04-16] MEDS: Gabapentin 300 MG Capsule PO ×2 (09:09→12:09)
[2025-04-16] MEDS: oxyCODONE HCl Cr 10 MG Tablet 20 MG PO ×2 (09:10→22:18)
[2025-04-16] MEDS: Ensure Plus High Protein 120 ML LIQUID PO ×3 (09:11→17:02)
[2025-04-16] MEDS: DULoxetine Hcl 60 MG Capsule PO (09:11)
[2025-04-16] MEDS: Lactobacillis Acidophilus 1 CAP PO ×4 (09:11→22:21)
[2025-04-16] MEDS: predniSONE 10 MG Tablet PO (09:11)
[2025-04-16] MEDS: buPROPion (XL) 150 MG TABLET.XL PO ×2 (09:12→22:21)
[2025-04-16] MEDS: OLANZapine 5 MG/TAB TAB.RAPDIS PO (09:12)
[2025-04-16] MEDS: Enoxaparin 40 MG/0.4 ML Syringe SC (09:12)
--- NOTE | 2025-04-16 09:26 | CASEMGMT ---
STEFANIE TERRAZAS Assessment Face to Face with patient for initial transition planning/care coordination assessment. STEFANIE TERRAZAS introduced self and role at [facility], pt voices understanding. Pt is A&Ox4 and is resting comfortably in the chair and is calm. Care providers, pharmacy, and demographics verified. Admitting dx: UTI, PNA, N/V, Diarrhea LACE Strata: 3 PCP: Baljeet Meyer (Oncologist) listed. Pt states that he does not have a family doctor. Provider list given. Specialists: Mitch, nayeliies further Preferred Pharmacy: [facility] Insurance: MELIA MATTHEWS Prescription Benefit: Yes LNOK: Wendi Davalos (SO) Living Arrangements: Pt reports that he recently moved from [place] and is living with his SO in a single story home with a basement and 2 steps to enter ADLs/IADLs: Pt states that he is mainly independent but that his SO can provide support as needed Transportation: Self, SO. DME: Functioning [facility] with sufficient supplies. Pt self caths at home and reports that he has enough supplies for this. Pt is currently requiring additional oxygen. Pt reported that he does not have home oxygen currently. OT is also recommending a FWW for the pt. A verbal list of local in-network DME companies were provided to the pt at this time. If pt were to DC home from U, pt prefers [facility] for DME needs. HHC/SNF: Denies history ETOH/Smoking/Illicit Drug use: Pt states that he drinks about 6 alcoholic drinks per week but is trying to stop. Pt states that he smokes less than 1/2 pack of cigarettes per day. Denies illicit drug use. Pt denies wanting resources. Pt?s goal: Return to PLOF Plan: Anticipate SNF at the time of DC for a short term rehabilitation stay to help the pt return to his PLOF. See OT evaluation. OT states to this STEFANIE TERRAZAS and PCU SW that OT is recommending a short term SNF stay. At this time, the pt is agreeable to attend a short term stay. PCU SW notified and to provide the pt with a list of options. If pt were to DC home, follow for new oxygen and FWW DME. Care Management to follow. Darlyn Del Rosario RN, CM
--- NOTE | 2025-04-16 09:58 | CASEMGMT ---
Discharge Planning A list of?SNF providers including quality and resource use data and consistent with the patient's preferred geographic region, medical needs, and insurance network was created in [facility] Guide.? This list was provided to the SW. Rekha Cruz Discharge Planning Asst.
--- NOTE | 2025-04-16 10:07 | CASEMGMT ---
Per RN CM patient is willing to go to a detention facility for rehab. SW met with patient. Introduced self and role at [facility]. Patient confirmed he is open to a SNF. SW provided patient with a list of facilities. SW explained to patient he will need to review the list and pick 3-4 places he would be okay with and SW will work on referrals. SW also explained to patient that once there is an accepting facility that facility will work on getting authorization from his insurance. SW explained he will stay at [facility] until we have approval. Rubi MARTÍNEZ
[2025-04-16] MEDS: Insulin Lispro 100 UNIT/ML INSULN.PEN SC ×3 (12:03→22:34)
[2025-04-16] MEDS: Acetaminophen 500 MG Tablet PO (12:09)
--- NOTE | 2025-04-16 12:26 | PN_ITS ---
Subjective Subjective Patient seen and examined. He said he felt a bit better today. He has remained hemodynamically stable. He is on room air. Objective Data Objective Data Vital Signs: Vital Signs Temp Pulse Resp BP Pulse Ox O2 Del Method O2 Flow Rate 97.3 F L 70 18 124/69 H 96 Room Air 1 04/16/25 09:54 04/16/25 11:00 04/16/25 09:54 04/16/25 09:54 04/16/25 11:01 04/16/25 10:00 04/16/25 08:45 Oxygen Flow Rate (L/min) 1 Oxygen Delivery Method Room Air Weight: 152 lb 1.903 oz Body Mass Index (BMI) 21.8 Intake & Output: Intake and Output for Last 24 Hours 04/14/25 04/15/25 04/16/25 23:59 23:59 23:59 Intake Total 1305 / 1305 3317.58 / 3317.58 200 / 200 Output Total 2100 / 2525 650 / 650 Balance 1305 / 1305 1217.58 / 792.58 -450 / -450 Lab / Micro Data 04/16/25 06:19 04/16/25 06:19 Labs: Laboratory Results - last 24 hr 04/15/25 17:04: POC Glucose 288 H 04/15/25 21:18: POC Glucose 288 H 04/16/25 06:12: POC Glucose 121 H 04/16/25 06:19: WBC 8.8, RBC 2.87 L, Hgb 9.7 L, Hct 29.5 L, MCV 102.8 H, MCH 33.8 H, MCHC 32.9, RDW Std Deviation 51.3 H, RDW Coeff of Berta 13.6, Plt Count 258, MPV 10.3, Immature Gran % (Auto) 0.600, Neut % (Auto) 71.8 H, Lymph % (Auto) 12.0 L, Wood % (Auto) 8.4, Eos % (Auto) 5.7 H, Baso % (Auto) 1.5 H, Absolute Neuts (auto) 6.3, Absolute Lymphs (auto) 1.06, Nucleated RBC % 0, Sodium 137, Potassium 4.0, Chloride 106, Carbon Dioxide 23.1, Anion Gap 8, BUN 11, Creatinine 0.59 L, Estim Creat Clear Calc 128.32, Est GFR (MDRD) Non-Af 110, BUN/Creatinine Ratio 18.0, Glucose 123 H, Calcium 8.5, Phosphorus 2.4 L Micro: Microbiology 04/14/25 19:30 Urine, Catheterized Urine Culture - Final Staphylococcus lugdunensis 04/14/25 22:34 Mucosa - Nose SARS-CoV-2, Influenza & RSV (PCR) - Final Physical Exam Const alert, oriented x3, no apparent distress and average body habitus Constitutional Narrative: very frail General Appearance: cooperative HEENT normocephalic, head/scalp atraumatic, hearing grossly normal bilaterally, moist oral mucous membranes, oropharynx normal and gingiva normal Eyes PERRL, EOMs intact bilaterally and conjunctivae normal Neck no lymphadenopathy, supple and no JVD Lymph Lymphatic: no lymphadenopathy noted and no lymphedema noted Resp Resp Narrative: mildly diminished breath sounds bibasally, no wheezes or crackles. On room air. Cardio regular rate, regular rhythm, S1 normal heart sound, S2 normal heart sound and no murmurs GI normal to inspection, nondistended, normoactive bowel sounds, soft to palpation, non-tender and non-distended Extremity normal to inspection, full ROM, normal capillary refill, no clubbing, cyanosis or edema and no calf tenderness General Extremity: no tenderness to palpation of joints or extremities Skin Skin Narrative: chemo port in situ Neuro CN's II-XII intact bilaterally, moves all extremities, no focal motor deficits and no sensory deficits noted Sensorium / Orientation: awake and alert Speech: speech normal Motor Exam: strength 5/5 throughout and general weakness Psych thought process normal, cooperative and affect normal Appearance: appropriate Assessment & Plan Assessment/Plan (1) Intractable nausea and vomiting: (2) Acute UTI: (3) Pneumonia: QUALIFIERS: Pneumonia type: due to unspecified organism L aterality: right Lung location: unspecified part of lung Qualified Code(s): J 18.9 - Pneumonia, unspecified organism (4) Generalized weakness: (5) Frequent falls: PLAN: Plan #COmmunity acquired pneumonia * Chest x-ray showed ill-defined opacities in the right middle lobe and lower lobe airspace opacities which may represent pneumonitis versus pneumonia or neoplasm * On IV Zosyn. Urine for strep and Legionella negative. * Breathing treatments bronchodilators. Titrate oxygen as needed to maintain saturation above 90%. #Acute gastroenteritis: * She was admitted with intractable nausea and vomiting as well as diarrhea. * on IV metronidazole. * diarrhea has resolved. * C. difficile is pending. * On IV Zofran as needed * #UTI: * Urinalysis does show evidence of UTI. * On IV Zosyn which should cover UTI also. * Urine culture growing Staph lugdunensis, sensitive to bactrim and nitrofurantoin. Place on PO nitrofurantoin #Hypomagnesemia: will replace and trend. # Elevated liver enzymes: * AST, ALT and ALP are elevated. * This may be due to the chemotherapy. * Will monitor and trend. * If continues to trend upwards we will do further workup. 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 * follow up with oncology on outpatient basis #Debility and weakness with frequent falls #Benign essential hypertension: On lisinopril. This was held due to incessant nausea and vomiting. IV hydralazine as needed #Hyperlipidemia: On statin #CAD s/p stents: On statin #History of type 2 diabetes mellitus: * On linagliptin and metformin. Insulin sliding scale. Accu-Cheks ACHS. Glipizide and metformin on hold. #History of anxiety with depression: on duloxetine and bupropion #History of osteoarthritis with chronic pain: On hydrocodone chronically. DVT prophylaxis: Lovenox Charges/Coding Visit Charges Inpatient E&M: 43379 Subs Hosp L2
[2025-04-16 12:45] LABS: Bedside Glucose 217 mg/dL (74-106)
[2025-04-16 13:50] LABS: Magnesium 1.8 mg/dL (1.5-2.2)
[2025-04-16] MEDS: Nitrofurantoin Macrocrystals 100 MG Capsule PO ×2 (14:04→22:21)
[2025-04-16] MEDS: Gabapentin 600 MG Tablet PO (17:02)
[2025-04-16 17:25] LABS: Bedside Glucose 300 mg/dL (74-106)
[2025-04-16] MEDS: 0.9% Saline Lock 10 ML Syringe IV (22:20)
[2025-04-16] MEDS: Pantoprazole Sodium 40 MG Tablet PO (22:21)
[2025-04-16 23:30] LABS: Bedside Glucose 273 mg/dL (74-106)
[2025-04-17 04:03] VITALS: PULSE 71
[2025-04-17 04:49] VITALS: BMI 21.4
[2025-04-17 05:20] VITALS: BP 129/79; PULSE 79; RESP 16; TEMP 36.6; O2SAT 93
[2025-04-17] MEDS: Piperacil/Tazobactam 3.375 GM in 0.9% Normal Saline (50mL MB+) 50 ML IV ×2 (05:24→15:01)
[2025-04-17] MEDS: Acetaminophen 500 MG Tablet PO ×2 (05:27→16:28)
[2025-04-17 06:04] LABS: Absolute Lymphocyte Count 0.86 X10^3/uL (0.83-4.51); Absolute Neutrophil Count 7.3 X10^3/uL (2.0-7.7); Basophil% 1.1 % (0-1); Eosinophil# 0.27 X10^3/uL; Eosinophils% 2.9 % (0-5); Hematocrit 31.3 % (40-54); Hemoglobin 10.5 g/dL (13.0-16.5); Lymphocyte # 0.86 X10^3/ul (0.83-4.51); Lymphocyte % 9.3 % (19-41); Mean Corp Hgb Conc 33.5 g/dL (32-36); Mean Corpuscular Hgb 33.8 pg (27.0-32.0); Mean Corpuscular Volume 100.6 fL (80-94); Mean Platelet Vol. 10.4 fl (6.2-12.0); Monocyte% 7.6 % (0-10); NRBC Flagged by Analyzer 0 % (0-5); Neutrophil # 7.26 X10^3/uL (2.7-7.7); Neutrophil % 78.5 % (47-70); Platelet Count 268 K/mm3 (150-450); RBC Distribution Width CV 13.4 % (11.6-14.6); RBC Distribution Width SD 49.5 fl (35.1-43.9); Red Blood Count 3.11 M/mm3 (4.6-6.2); White Blood Count 9.3 K/mm3 (4.4-11.0)
[2025-04-17 06:28] LABS: Anion Gap 12 (5-15); BUN 8 mg/dL (4-19); BUN/Creat Ratio 15.6 RATIO (10-20); Calcium,Total 8.9 mg/dL (7.6-11.0); Carbon Dioxide 22.3 mmol/L (21.0-32.0); Chloride 102 mmol/L (98-108); Creatinine, Serum 0.51 mg/dL (0.70-1.20); EST Glomerular Filtration Rate 116 (>60); Glucose 128 mg/dL (70-99); Potassium 3.3 mmol/L (3.3-5.1); Sodium Level 137 mmol/L (133-145)
[2025-04-17 06:33] LABS: Bedside Glucose 127 mg/dL (74-106)
[2025-04-17] MEDS: Gabapentin 300 MG Capsule PO ×2 (08:24→12:41)
[2025-04-17] MEDS: oxyCODONE HCl Cr 10 MG Tablet 20 MG PO ×2 (08:24→21:38)
[2025-04-17] MEDS: Nitrofurantoin Macrocrystals 100 MG Capsule PO (08:25)
[2025-04-17] MEDS: predniSONE 10 MG Tablet PO (08:25)
[2025-04-17] MEDS: buPROPion (XL) 150 MG TABLET.XL PO ×2 (08:25→21:38)
[2025-04-17] MEDS: Enoxaparin 40 MG/0.4 ML Syringe SC (08:25)
[2025-04-17] MEDS: Lactobacillis Acidophilus 1 CAP PO ×4 (08:25→21:38)
[2025-04-17] MEDS: OLANZapine 5 MG/TAB TAB.RAPDIS PO (08:25)
[2025-04-17] MEDS: DULoxetine Hcl 60 MG Capsule PO (08:25)
[2025-04-17] MEDS: Glucerna Shake 120 ML LIQUID PO ×4 (08:29→21:39)
--- NOTE | 2025-04-17 09:14 | CASEMGMT ---
SW met with patient to see if he has made any decisions on a senior care facility. Patient said he has not. Patient then started talking about drinking alcohol. Patient said he is done with it. SW asked patient if he would like our payroll specialist to come and talk with him. Patient declined. SW then confirmed patient was looking to go to a senior care facility for PT/OT rehab to get stronger. Patient stated he would like that. SW asked patient to review the list SW left for him and choose 3-4 facilities he would be interested in and SW will work on getting referrals sent. Rubi Carbone TAG WRITER MAURICIO
--- NOTE | 2025-04-17 09:54 | NURSING ---
Per MD, removed castro catheter. Pt tolerated well, denies dysuria and discomfort at this time.
[2025-04-17] MEDS: Polyethylene Glycol 3350 17 GM PACKET PO (10:35)
--- NOTE | 2025-04-17 12:39 | CASEMGMT ---
SW went to patient's room to see if he has chosen any facilities. Patient has not. Patient started to look at the list. SW will check back again. Rubi MARTÍNEZ
[2025-04-17 12:40] LABS: Bedside Glucose 218 mg/dL (74-106)
[2025-04-17] MEDS: Insulin Lispro 100 UNIT/ML INSULN.PEN SC ×3 (12:40→21:48)
--- NOTE | 2025-04-17 14:24 | CASEMGMT ---
SW went to patient's room and his friend Wendi was present. SW asked patient if it was okay for SW to talk in front of his friend and he said it would be fine. SW explained to Kalyilucio that therapy feels it would be beneficial for patient to go to a nursing home facility short term for rehab. Wendi agreed. Wendi asked which facility is the closest to the hospital. W[facility]ON told her [facility] is the closest. Both patient and Wendi were in agreement with SW making a referral to [facility]. SW made a referral to TCU and they can take patient pending medication check with pharmacy. Plan: d/c to [facility] pending medication check with pharmacy and insurance approval. Rubi Carbone MARRIAGE THERAPIST MAURICIO
--- NOTE | 2025-04-17 15:40 | DS.PCM_ITS ---
Providers Date of Admission: 04/14/25 Primary Care Physician: Dr. Baljeet Meyer, DO Reason For Visit: UTI, PNA, INTRACTABLE N/V, NONBLOODY DIARRHEA ADR Diagnosis Discharge Diagnosis (1) Intractable nausea and vomiting: Status: Acute Code(s): R11.2 - Nausea with vomiting, unspecified (2) Acute UTI: Status: Acute Code(s): N39.0 - Urinary tract infection, site not specified (3) Pneumonia: Status: Acute Code(s): J18.9 - Pneumonia, unspecified organism Qualifiers: Pneumonia type: due to unspecified organism Laterality: right Lung location: unspecified part of lung Qualified Code(s): J18.9 - Pneumonia, unspecified organism (4) Generalized weakness: Status: Acute Code(s): R53.1 - Weakness (5) Frequent falls: Status: Acute Code(s): R29.6 - Repeated falls Plan #COmmunity acquired pneumonia * Chest x-ray showed ill-defined opacities in the right middle lobe and lower lobe airspace opacities which may represent pneumonitis versus pneumonia or neoplasm * On IV Zosyn. Urine for strep and Legionella negative. * Breathing treatments bronchodilators. Titrate oxygen as needed to maintain saturation above 90%. #Acute gastroenteritis: * She was admitted with intractable nausea and vomiting as well as diarrhea. * on IV metronidazole. * diarrhea has resolved. * C. difficile is pending. * On IV Zofran as needed * #UTI: * Urinalysis does show evidence of UTI. * On IV Zosyn which should cover UTI also. * Urine culture growing Staph lugdunensis, sensitive to bactrim and nitrofurantoin. Place on PO nitrofurantoin #Hypomagnesemia: will replace and trend. # Elevated liver enzymes: * AST, ALT and ALP are elevated. * This may be due to the chemotherapy. * Will monitor and trend. * If continues to trend upwards we will do further workup. 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 * follow up with oncology on outpatient basis #Debility and weakness with frequent falls #Benign essential hypertension: On lisinopril. This was held due to incessant nausea and vomiting. IV hydralazine as needed #Hyperlipidemia: On statin #CAD s/p stents: On statin #History of type 2 diabetes mellitus: * On linagliptin and metformin. Insulin sliding scale. Accu-Cheks ACHS. Glipizide and metformin on hold. #History of anxiety with depression: on duloxetine and bupropion #History of osteoarthritis with chronic pain: On hydrocodone chronically. DVT prophylaxis: Lovenox Medications at Discharge Home Medications albuterol 90 mcg/actuation aerosol inhaler See Rx Instructions .Route .COMPLEX 03/17/21 gabapentin 300 mg capsule 300 mg PO Q12H 06/20/21 acetaminophen 500 mg tablet 500 mg PO Q8H PRN PRN pain 04/14/25 budesonide 160 mcg-glycopyr 9 mcg-formot 4.8 mcg/actuation HFA inhaler (Breztri Aerosphere) 2 inh inhalation BID 04/14/25 bupropion HCl 150 mg 24 hr tablet, extended release 150 mg PO BID 04/14/25 duloxetine 30 mg capsule,delayed release 60 mg PO DAILY 04/14/25 glimepiride 1 mg tablet 1 mg PO DAILY 04/14/25 metformin 1,000 mg tablet 1,000 mg PO BID 04/14/25 olanzapine 5 mg tablet 5 mg PO DAILY 04/14/25 ondansetron 8 mg disintegrating tablet 8 mg PO Q8H PRN PRN nausea 04/14/25 oxycodone 10 mg tablet 10 mg PO Q6H PRN pain 04/14/25 oxycodone 20 mg tablet,crush resistant,extended release 12 hr (OxyContin) 20 mg PO BID 04/14/25 prednisone 10 mg tablet 10 mg PO DAILY 04/14/25 prochlorperazine maleate 10 mg tablet 10 mg PO Q6H PRN nausea and vomiting 04/14/25 doxycycline hyclate 100 mg tablet 100 mg PO BID #10 tabs 04/17/25 Weight / BMI Weight Weight: 149 lb 14.629 oz Body Mass Index (BMI) 21.4 ABG / Lab / Microbiology Data 04/17/25 04:55 04/17/25 04:55 Laboratory: Laboratory Results - last 24 hr 04/16/25 16:55: POC Glucose 300 H 04/16/25 22:32: POC Glucose 273 H 04/17/25 04:55: WBC 9.3, RBC 3.11 L, Hgb 10.5 L, Hct 31.3 L, MCV 100.6 H, MCH 33.8 H, MCHC 33.5, RDW Std Deviation 49.5 H, RDW Coeff of Berta 13.4, Plt Count 268, MPV 10.4, Immature Gran % (Auto) 0.600, Neut % (Auto) 78.5 H, Lymph % (Auto) 9.3 L, [place] % (Auto) 7.6, Eos % (Auto) 2.9, Baso % (Auto) 1.1 H, Absolute Neuts (auto) 7.3, Absolute Lymphs (auto) 0.86, Nucleated RBC % 0, Sodium 137, Potassium 3.3, Chloride 102, Carbon Dioxide 22.3, Anion Gap 12, BUN 8, C reatinine 0.51 L, Estim Creat Clear Calc 146.30, Est GFR (MDRD) Non-Af 116, BUN/Creatinine Ratio 15.6, Glucose 128 H, Calcium 8.9 04/17/25 06:11: POC Glucose 127 H 04/17/25 12:13: POC Glucose 218 H Microbiology: Microbiology 04/14/25 20:15 Blood Culture (Wb) - Anticubital Left Blood Culture - Preliminary No growth in 48 hours. 04/14/25 19:30 Blood Culture (Wb) - Port Blood Culture - Preliminary No growth in 48 hours. 04/14/25 19:30 Urine, Catheterized Urine Culture - Final Staphylococcus lugdunensis 04/14/25 22:34 Mucosa - Nose SARS-CoV-2, Influenza & RSV (PCR) - Final D/C Instructions Discharge Diet: Low fat / Low cholesterol Weight Bearing Status: Weight bearing as tolerated Call your doctor if you observe: Fever of 101 or Higher, Shortness of breath, Dizziness, Swelling in the ankles and Chest pain DC O2, CPAP, BIPAP Needs Home O2 Discharge instructions: No Meaningful Use Info Ischemic Stroke Statin Dosing Therapy Reference: STATIN DOSE THERAPY REFERENCE: * Patients > 75 years receive moderate or high dose statin therapy. * Patients 75 years or YOUNGER should receive HIGH intensity statin dose unless contraindicated. You will be required to document reason for non-treatment if statin daily dose does not meet guidelines. HIGH DOSE STATIN THERAPY DAILY Atorvastatin > than or = to 40 mg Rosuvastatin > than or = to 20 mg Amlodipine + Atorvastatin > than or = to 2.5/40 mg Ezetimibe + Simvastatin 10/80 mg Simvastatin 80mg Discharge Plan Admission Admit Date/Time: 04/14/25 22:21 Primary Reason for Your Visit: UTI, pneumonia Attending Provider: Samantha Fu Primary Care Provider: Baljeet Meyer Consulting Providers: Camilo Khanna Instructions Patient Instructions: Urinary Tract Infections in Men, ED Pneumonia (Adult) Discharge Orders/Prescriptions Prescriptions: New doxycycline hyclate 100 mg tablet 100 mg PO BID Qty: 10 0RF Continued albuterol 90 mcg/actuation Aerosol See Rx Instructions .ROUTE .COMPLEX Rx Instructions: PRN gabapentin 300 mg capsule 300 mg PO Q12H Patient Comments: Take 1 capsule by mouth 3 times per day for neuropathic pain Rx Instructions: 300 breakfast and lunch and 600 at dinner prednisone 10 mg tablet 10 mg PO DAILY olanzapine 5 mg tablet 5 mg PO DAILY bupropion HCl 150 mg tablet extended release 24 hr 150 mg PO BID ondansetron 8 mg tablet,disintegrating 8 mg PO Q8H PRN PRN (Reason: nausea) oxycodone 10 mg tablet 10 mg PO Q6H PRN (Reason: pain) oxycodone [OxyContin] 20 mg tablet,oral only,ext.rel.12 hr 20 mg PO BID glimepiride 1 mg tablet 1 mg PO DAILY prochlorperazine maleate 10 mg tablet 10 mg PO Q6H PRN (Reason: nausea and vomiting) acetaminophen 500 mg tablet 500 mg PO Q8H PRN PRN (Reason: pain) metformin 1,000 mg tablet 1,000 mg PO BID duloxetine 30 mg capsule,delayed release(DR/EC) 60 mg PO DAILY Breztri Aerosphere 160-9-4.8 mcg/actuation HFA aerosol inhaler 2 inh inhalation BID Referrals / Follow Up: Self,[facility] [Emergency Nurse] - Within 1 Week Baljeet Meyer DO [Primary Care Provider] - Within 1 Week Disposition Disposition (needs filled in before D/C Order can be placed): Home, Self Care
--- NOTE | 2025-04-17 15:40 | DCINST_ITS ---
Discharge Instructions Diet Discharge Diet: Low fat / Low cholesterol DC O2, CPAP, BIPAP needs Home O2 Discharge instructions: No Dressing / Incision Discharge Activity: Return to Normal Activity Weight Bearing Status: Weight bearing as tolerated Dressing / Incision Call your doctor if you observe: Fever of 101 or Higher, Shortness of breath, Dizziness, Swelling in the ankles and Chest pain Follow Up Care Test Results: Test results from this visit will be discussed in further detail at your follow- up appointment, if applicable. Discharge Plan Admission Admit Date/Time: 04/14/25 22:21 Primary Reason for Your Visit: UTI, pneumonia Attending Provider: Samantha Fu Primary Care Provider: Baljeet Meyer Consulting Providers: Camilo Khanna Patient Instructions: Urinary Tract Infections in Men, ED Pneumonia (Adult) Discharge Orders/Prescriptions Prescriptions: New doxycycline hyclate 100 mg tablet 100 mg PO BID Qty: 10 0RF Continued albuterol 90 mcg/actuation Aerosol See Rx Instructions .ROUTE .COMPLEX Rx Instructions: PRN gabapentin 300 mg capsule 300 mg PO Q12H Patient Comments: Take 1 capsule by mouth 3 times per day for neuropathic pain Rx Instructions: 300 breakfast and lunch and 600 at dinner prednisone 10 mg tablet 10 mg PO DAILY olanzapine 5 mg tablet 5 mg PO DAILY bupropion HCl 150 mg tablet extended release 24 hr 150 mg PO BID ondansetron 8 mg tablet,disintegrating 8 mg PO Q8H PRN PRN (Reason: nausea) oxycodone 10 mg tablet 10 mg PO Q6H PRN (Reason: pain) oxycodone [OxyContin] 20 mg tablet,oral only,ext.rel.12 hr 20 mg PO BID glimepiride 1 mg tablet 1 mg PO DAILY prochlorperazine maleate 10 mg tablet 10 mg PO Q6H PRN (Reason: nausea and vomiting) acetaminophen 500 mg tablet 500 mg PO Q8H PRN PRN (Reason: pain) metformin 1,000 mg tablet 1,000 mg PO BID duloxetine 30 mg capsule,delayed release(DR/EC) 60 mg PO DAILY Breztri Aerosphere 160-9-4.8 mcg/actuation HFA aerosol inhaler 2 inh inhalation BID Referrals / Follow Up: [facility] [Emergency Nurse] - Within 1 Week Baljeet Meyer DO [Primary Care Provider] - Within 1 Week Disposition Disposition (needs filled in before D/C Order can be placed): Home, Self Care
--- NOTE | 2025-04-17 15:56 | PN_ITS ---
Subjective Subjective Patient seen and examined. He had no complaints and felt much better today. He was on room air. Review of systems otherwise negative. He is awaiting discharge to TCU. Objective Data Objective Data Vital Signs: Vital Signs Temp Pulse Resp BP Pulse Ox O2 Del Method O2 Flow Rate 97.9 F 79 16 129/79 H 93 Room Air 1 04/17/25 05:20 04/17/25 05:20 04/17/25 05:20 04/17/25 05:20 04/17/25 05:20 04/17/25 14:00 04/16/25 08:45 Oxygen Flow Rate (L/min) 1 Oxygen Delivery Method Room Air Weight: 149 lb 14.629 oz Body Mass Index (BMI) 21.4 Intake & Output: Intake and Output for Last 24 Hours 04/15/25 04/16/25 04/17/25 23:59 23:59 23:59 Intake Total 3317.58 / 3317.58 790 / 790 340 / 340 Output Total 2100 / 2525 650 / 650 1075 / 1075 Balance 1217.58 / 792.58 140 / 140 -735 / -735 Lab / Micro Data 04/17/25 04:55 04/17/25 04:55 Labs: Laboratory Results - last 24 hr 04/16/25 16:55: POC Glucose 300 H 04/16/25 22:32: POC Glucose 273 H 04/17/25 04:55: WBC 9.3, RBC 3.11 L, Hgb 10.5 L, Hct 31.3 L, MCV 100.6 H, MCH 33.8 H, MCHC 33.5, RDW Std Deviation 49.5 H, RDW Coeff of Berta 13.4, Plt Count 268, MPV 10.4, Immature Gran % (Auto) 0.600, Neut % (Auto) 78.5 H, Lymph % (Auto) 9.3 L, [place] % (Auto) 7.6, Eos % (Auto) 2.9, Baso % (Auto) 1.1 H, Absolute Neuts (auto) 7.3, Absolute Lymphs (auto) 0.86, Nucleated RBC % 0, Sodium 137, Potassium 3.3, Chloride 102, Carbon Dioxide 22.3, Anion Gap 12, BUN 8, C reatinine 0.51 L, Estim Creat Clear Calc 146.30, Est GFR (MDRD) Non-Af 116, BUN/Creatinine Ratio 15.6, Glucose 128 H, Calcium 8.9 04/17/25 06:11: POC Glucose 127 H 04/17/25 12:13: POC Glucose 218 H Micro: Microbiology 04/14/25 20:15 Blood Culture (Wb) - Anticubital Left Blood Culture - Preliminary No growth in 48 hours. 04/14/25 19:30 Blood Culture (Wb) - Port Blood Culture - Preliminary No growth in 48 hours. 04/14/25 19:30 Urine, Catheterized Urine Culture - Final Staphylococcus lugdunensis 04/14/25 22:34 Mucosa - Nose SARS-CoV-2, Influenza & RSV (PCR) - Final Physical Exam Const alert, oriented x3, no apparent distress and average body habitus Constitutional Narrative: frail, but looks much better today General Appearance: cooperative Orientation / Consciousness: confused HEENT normocephalic, head/scalp atraumatic, hearing grossly normal bilaterally, moist oral mucous membranes, oropharynx normal and gingiva normal Eyes PERRL, EOMs intact bilaterally and conjunctivae normal Neck no lymphadenopathy, supple and no JVD Lymph Lymphatic: no lymphadenopathy noted and no lymphedema noted Resp Resp Narrative: mildly diminished breath sounds bibasally, no wheezes or crackles. On room air. Cardio regular rate, regular rhythm, S1 normal heart sound, S2 normal heart sound and no murmurs GI normal to inspection, nondistended, normoactive bowel sounds, soft to palpation, non-tender and non-distended Extremity normal to inspection, full ROM, normal capillary refill, no clubbing, cyanosis or edema and no calf tenderness General Extremity: no tenderness to palpation of joints or extremities Skin Skin Narrative: chemo port in situ Neuro moves all extremities and no focal motor deficits Sensorium / Orientation: awake and alert Speech: speech normal Motor Exam: strength 5/5 throughout and general weakness Psych thought process normal, cooperative and affect normal Appearance: appropriate Assessment & Plan Assessment/Plan (1) Intractable nausea and vomiting: (2) Acute UTI: (3) Pneumonia: QUALIFIERS: Pneumonia type: due to unspecified organism L aterality: right Lung location: unspecified part of lung Qualified Code(s): J 18.9 - Pneumonia, unspecified organism (4) Generalized weakness: (5) Frequent falls: PLAN: Plan #COmmunity acquired pneumonia * Chest x-ray showed ill-defined opacities in the right middle lobe and lower lobe airspace opacities which may represent pneumonitis versus pneumonia or neoplasm * On IV Zosyn. Urine for strep and Legionella negative. * Breathing treatments bronchodilators. Titrate oxygen as needed to maintain saturation above 90%. * Now on room air. Will DC IV Zosyn and placed on p.o. doxycycline. This will cover for pneumonia and also cover for the UTI based on sensitivities. #Acute gastroenteritis: * Resolved. IV metronidazole discontinued. * #UTI: * Urinalysis does show evidence of UTI. * On IV Zosyn which should cover UTI also. * Urine culture growing Staph lugdunensis, sensitive to bactrim and nitrofurantoin as well as doxycycline. Will DC nitrofurantoin and place patient on p.o. doxycycline which will cover for the pneumonia and the UTI. Zosyn discontinued as above. #Hypomagnesemia: will replace and trend. # Elevated liver enzymes: * AST, ALT and ALP are elevated. * This may be due to the chemotherapy. * Will monitor and trend. * If continues to trend upwards we will do further workup. 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 * follow up with oncology on outpatient basis #Debility and weakness with frequent falls #Benign essential hypertension: On lisinopril. This was held due to incessant nausea and vomiting. IV hydralazine as needed #Hyperlipidemia: On statin #CAD s/p stents: On statin #History of type 2 diabetes mellitus: * On linagliptin and metformin. Insulin sliding scale. Accu-Cheks ACHS. Glipizide and metformin on hold. #History of anxiety with depression: on duloxetine and bupropion #History of osteoarthritis with chronic pain: On hydrocodone chronically. DVT prophylaxis: Lovenox Disposition: Patient awaiting discharge to TCU. Charges/Coding Visit Charges Inpatient E&M: 88858 Subs Hosp L2
[2025-04-17] MEDS: Gabapentin 600 MG Tablet PO (16:29)
--- NOTE | 2025-04-17 17:11 | NURSING ---
Slight distension noted to lower abdomen, pt unable to urinate in toilet x2 this afternoon. Bladder scan shows ~240mL. Notified MD, straight-cathed 230mL dark yellow urine. Pt reports relief of pressure and denies further discomfort at this time.
[2025-04-17 17:45] LABS: Bedside Glucose 289 mg/dL (74-106)
[2025-04-17] MEDS: Doxycycline 100 MG CAPSULE PO (21:38)
[2025-04-17] MEDS: Pantoprazole Sodium 40 MG Tablet PO (21:38)
[2025-04-17] MEDS: MELATONIN 3 MG TABLET PO (21:38)
[2025-04-17] MEDS: Scopolamine 1mg/72hr Patch 1 PATCH TD (21:39)
[2025-04-17 21:55] VITALS: BP 119/78; PULSE 62; RESP 18; TEMP 36.8; O2SAT 95
[2025-04-17 22:10] LABS: Bedside Glucose 193 mg/dL (74-106)
[2025-04-18] VITALS (9 sets, daily range): BP systolic 122–132; BP diastolic 76–81; PULSE 74–87; RESP 16–18; TEMP 36.4–36.7; O2SAT 90–96; BMI 21.4; BMI 20.6
[2025-04-18 06:19] LABS: Absolute Lymphocyte Count 0.86 X10^3/uL (0.83-4.51); Absolute Neutrophil Count 7.6 X10^3/uL (2.0-7.7); Basophil# 0.11 X10^3/uL; Basophil% 1.1 % (0-1); Eosinophil# 0.46 X10^3/uL; Eosinophils% 4.7 % (0-5); Hematocrit 32.3 % (40-54); Hemoglobin 10.8 g/dL (13.0-16.5); Lymphocyte # 0.86 X10^3/ul (0.83-4.51); Lymphocyte % 8.8 % (19-41); Mean Corp Hgb Conc 33.4 g/dL (32-36); Mean Corpuscular Hgb 34.2 pg (27.0-32.0); Mean Corpuscular Volume 102.2 fL (80-94); Mean Platelet Vol. 9.8 fl (6.2-12.0); Monocyte# 0.65 X10^3/uL; Monocyte% 6.7 % (0-10); NRBC Flagged by Analyzer 0 % (0-5); Neutrophil # 7.61 X10^3/uL (2.7-7.7); Neutrophil % 78.2 % (47-70); Platelet Count 260 K/mm3 (150-450); RBC Distribution Width CV 13.8 % (11.6-14.6); RBC Distribution Width SD 51.9 fl (35.1-43.9); Red Blood Count 3.16 M/mm3 (4.6-6.2); White Blood Count 9.7 K/mm3 (4.4-11.0)
[2025-04-18 06:38] LABS: Bedside Glucose 149 mg/dL (74-106)
[2025-04-18 06:49] LABS: Anion Gap 12 (5-15); BUN 12 mg/dL (4-19); BUN/Creat Ratio 23.3 RATIO (10-20); Calcium,Total 9.2 mg/dL (7.6-11.0); Carbon Dioxide 23.1 mmol/L (21.0-32.0); Chloride 104 mmol/L (98-108); Creatinine, Serum 0.52 mg/dL (0.70-1.20); EST Glomerular Filtration Rate 114 (>60); Estimated Creatinine Clearance 142.64 ml/min (50-250); Glucose 138 mg/dL (70-99); Potassium 3.8 mmol/L (3.3-5.1); Sodium Level 139 mmol/L (133-145)
[2025-04-18] MEDS: Gabapentin 300 MG Capsule PO ×2 (08:13→12:02)
[2025-04-18] MEDS: Enoxaparin 40 MG/0.4 ML Syringe SC (08:13)
[2025-04-18] MEDS: Lactobacillis Acidophilus 1 CAP PO ×4 (08:14→20:49)
[2025-04-18] MEDS: buPROPion (XL) 150 MG TABLET.XL PO ×2 (08:14→20:50)
[2025-04-18] MEDS: predniSONE 10 MG Tablet PO (08:14)
[2025-04-18] MEDS: Doxycycline 100 MG CAPSULE PO ×2 (08:14→20:49)
[2025-04-18] MEDS: DULoxetine Hcl 60 MG Capsule PO (08:14)
[2025-04-18] MEDS: OLANZapine 5 MG/TAB TAB.RAPDIS PO (08:14)
[2025-04-18] MEDS: Glucerna Shake 120 ML LIQUID PO ×3 (08:17→20:39)
--- NOTE | 2025-04-18 09:29 | CASEMGMT ---
Discharge Planning TCU has accepted and precert was submitted. Rekha Curz DC Planning Asst.
[2025-04-18] MEDS: oxyCODONE HCl Cr 10 MG Tablet 20 MG PO ×2 (09:53→22:57)
[2025-04-18] MEDS: 0.9% Saline Lock 10 ML Syringe IV ×2 (09:53→20:39)
[2025-04-18] MEDS: Insulin Lispro 100 UNIT/ML INSULN.PEN SC ×2 (11:33→16:33)
[2025-04-18 11:53] LABS: Bedside Glucose 218 mg/dL (74-106)
[2025-04-18] MEDS: Polyethylene Glycol 3350 17 GM PACKET PO (12:02)
--- NOTE | 2025-04-18 12:34 | CASEMGMT ---
Social Work- TCU accepted and started precert. SW updated pt. Pt agreeable to discharge plan and reports no needs or concerns at this time. Plan: TCU; precert pend GENARO Peterson
--- NOTE | 2025-04-18 14:28 | PN_ITS ---
Subjective Subjective Patient seen and examined. He had no active complaints. Review of systems is otherwise negative. He is awaiting placement. Objective Data Objective Data Vital Signs: Vital Signs Temp Pulse Resp BP Pulse Ox O2 Del Method O2 Flow Rate 97.6 F L 80 16 122/81 H 90 Room Air 1 04/18/25 13:35 04/18/25 13:35 04/18/25 13:35 04/18/25 13:35 04/18/25 13:35 04/18/25 13:35 04/16/25 08:45 Oxygen Flow Rate (L/min) 1 Oxygen Delivery Method Room Air Weight: 149 lb 0.52 oz Body Mass Index (BMI) 21.4 Intake & Output: Intake and Output for Last 24 Hours 04/16/25 04/17/25 04/18/25 23:59 23:59 23:59 Intake Total 790 / 790 478.54 / 478.54 Output Total 650 / 650 1305 / 1305 550 / 550 Balance 140 / 140 -826.46 / -826.46 -550 / -550 Lab / Micro Data 04/18/25 05:43 04/18/25 05:43 Labs: Laboratory Results - last 24 hr 04/17/25 17:06: POC Glucose 289 H 04/17/25 21:47: POC Glucose 193 H 04/18/25 05:43: WBC 9.7, RBC 3.16 L, Hgb 10.8 L, Hct 32.3 L, MCV 102.2 H, MCH 34.2 H, MCHC 33.4, RDW Std Deviation 51.9 H, RDW Coeff of Berta 13.8, Plt Count 260, MPV 9.8, Immature Gran % (Auto) 0.500, Neut % (Auto) 78.2 H, Lymph % (Auto) 8.8 L, [place] % (Auto) 6.7, Eos % (Auto) 4.7, Baso % (Auto) 1.1 H, Absolute Neuts (auto) 7.6, Absolute Lymphs (auto) 0.86, Nucleated RBC % 0, Sodium 139, Potassium 3.8, Chloride 104, Carbon Dioxide 23.1, Anion Gap 12, BUN 12, C reatinine 0.52 L, Estim Creat Clear Calc 142.64, Est GFR (MDRD) Non-Af 114, B UN/Creatinine Ratio 23.3 H, Glucose 138 H, Calcium 9.2 04/18/25 06:21: POC Glucose 149 H 04/18/25 11:32: POC Glucose 218 H Micro: Microbiology 04/14/25 20:15 Blood Culture (Wb) - Anticubital Left Blood Culture - Preliminary No growth in 48 hours. 04/14/25 19:30 Blood Culture (Wb) - Port Blood Culture - Preliminary No growth in 48 hours. 04/14/25 19:30 Urine, Catheterized Urine Culture - Final Staphylococcus lugdunensis 04/14/25 22:34 Mucosa - Nose SARS-CoV-2, Influenza & RSV (PCR) - Final Physical Exam Const alert, oriented x3, no apparent distress and average body habitus Constitutional Narrative: frail, but looks much better today General Appearance: cooperative HEENT normocephalic, head/scalp atraumatic, hearing grossly normal bilaterally, moist oral mucous membranes, oropharynx normal and gingiva normal Eyes PERRL, EOMs intact bilaterally and conjunctivae normal Neck no lymphadenopathy, supple and no JVD Lymph Lymphatic: no lymphadenopathy noted and no lymphedema noted Resp no use of accessory muscles Resp Narrative: mildly diminished breath sounds bibasally, no wheezes or crackles. On room air. Cardio regular rate, regular rhythm, S1 normal heart sound, S2 normal heart sound and no murmurs GI normal to inspection, nondistended, normoactive bowel sounds, soft to palpation, non-tender and non-distended Extremity normal to inspection, full ROM, normal capillary refill, no clubbing, cyanosis or edema and no calf tenderness General Extremity: no tenderness to palpation of joints or extremities Skin Skin Narrative: chemo port in situ Neuro CN's II-XII intact bilaterally, moves all extremities, no focal motor deficits and no sensory deficits noted Sensorium / Orientation: awake, alert, oriented to person and oriented to place Speech: speech normal Motor Exam: strength 5/5 throughout and general weakness Psych thought process normal, cooperative and affect normal Appearance: appropriate Assessment & Plan Assessment/Plan (1) Intractable nausea and vomiting: (2) Acute UTI: (3) Pneumonia: QUALIFIERS: Pneumonia type: due to unspecified organism L aterality: right Lung location: unspecified part of lung Qualified Code(s): J 18.9 - Pneumonia, unspecified organism (4) Generalized weakness: (5) Frequent falls: PLAN: Plan #COmmunity acquired pneumonia * Chest x-ray showed ill-defined opacities in the right middle lobe and lower lobe airspace opacities which may represent pneumonitis versus pneumonia or neoplasm * Urine for strep and Legionella negative. * Breathing treatments bronchodilators. Titrate oxygen as needed to maintain saturation above 90%. * Now on room air. * On PO doxycyclinebased on sensitivities. Will DC IV Zosyn and placed on p.o. doxycycline. This will cover for pneumonia and also cover for the UTI based on sensitivities. #Acute gastroenteritis: * Resolved. IV metronidazole discontinued. * #UTI: * Urinalysis does show evidence of UTI. * On IV Zosyn which should cover UTI also. * Urine culture growing Staph lugdunensis, sensitive to bactrim and nitrofurantoin as well as doxycycline. * on PO doxycycline; to complete a 5 day course. * #Hypomagnesemia: will replace and trend. # Elevated liver enzymes: * AST, ALT and ALP are elevated. * This may be due to the chemotherapy. * Will monitor and trend. * If continues to trend upwards we will do further workup. 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 * follow up with oncology on outpatient basis #Debility and weakness with frequent falls #Benign essential hypertension: On lisinopril. This was held due to incessant nausea and vomiting. IV hydralazine as needed #Hyperlipidemia: On statin #CAD s/p stents: On statin #History of type 2 diabetes mellitus: * On linagliptin and metformin. Insulin sliding scale. Accu-Cheks ACHS. Glipizide and metformin on hold. #History of anxiety with depression: on duloxetine and bupropion #History of osteoarthritis with chronic pain: On hydrocodone chronically. DVT prophylaxis: Lovenox Disposition: Patient awaiting discharge to TCU pending precert. Charges/Coding Visit Charges Inpatient E&M: 04466 Subs Hosp L2
[2025-04-18] MEDS: Gabapentin 600 MG Tablet PO (16:35)
[2025-04-18 16:54] LABS: Bedside Glucose 171 mg/dL (74-106)
[2025-04-18] MEDS: Morphine 2 MG/ML Syringe IV (20:40)
[2025-04-18] MEDS: Pantoprazole Sodium 40 MG Tablet PO (20:49)
[2025-04-18 23:16] LABS: Bedside Glucose 127 mg/dL (74-106)
[2025-04-19] VITALS (10 sets, daily range): BP systolic 119–135; BP diastolic 73–92; PULSE 67–89; RESP 18–20; TEMP 36.5–36.9; O2SAT 0–97; BMI 20.5
[2025-04-19 04:36] LABS: Absolute Lymphocyte Count 0.92 X10^3/uL (0.83-4.51); Absolute Neutrophil Count 6.9 X10^3/uL (2.0-7.7); Basophil# 0.12 X10^3/uL; Basophil% 1.3 % (0-1); Eosinophil# 0.41 X10^3/uL; Eosinophils% 4.6 % (0-5); Hemoglobin 10.6 g/dL (13.0-16.5); Lymphocyte # 0.92 X10^3/ul (0.83-4.51); Lymphocyte % 10.3 % (19-41); Mean Corp Hgb Conc 33.1 g/dL (32-36); Mean Corpuscular Hgb 34.1 pg (27.0-32.0); Mean Corpuscular Volume 102.9 fL (80-94); Mean Platelet Vol. 10.5 fl (6.2-12.0); Monocyte# 0.56 X10^3/uL; Monocyte% 6.3 % (0-10); NRBC Flagged by Analyzer 0 % (0-5); Neutrophil % 77.1 % (47-70); Platelet Count 259 K/mm3 (150-450); RBC Distribution Width CV 14.1 % (11.6-14.6); Red Blood Count 3.11 M/mm3 (4.6-6.2)
[2025-04-19 05:18] LABS: Anion Gap 10 (5-15); BUN 13 mg/dL (4-19); BUN/Creat Ratio 23.9 RATIO (10-20); Calcium,Total 9.4 mg/dL (7.6-11.0); Carbon Dioxide 24.4 mmol/L (21.0-32.0); Chloride 101 mmol/L (98-108); Creatinine, Serum 0.52 mg/dL (0.70-1.20); EST Glomerular Filtration Rate 114 (>60); Estimated Creatinine Clearance 137.36 ml/min (50-250); Glucose 110 mg/dL (70-99); Potassium 3.7 mmol/L (3.3-5.1); Sodium Level 136 mmol/L (133-145)
[2025-04-19 06:49] LABS: Bedside Glucose 104 mg/dL (74-106)
[2025-04-19] MEDS: predniSONE 10 MG Tablet PO (08:09)
[2025-04-19] MEDS: Gabapentin 300 MG Capsule PO (08:09)
[2025-04-19] MEDS: DULoxetine Hcl 60 MG Capsule PO (09:37)
[2025-04-19] MEDS: Lactobacillis Acidophilus 1 CAP PO ×4 (09:37→22:27)
[2025-04-19] MEDS: buPROPion (XL) 150 MG TABLET.XL PO ×2 (09:37→22:27)
[2025-04-19] MEDS: OLANZapine 5 MG/TAB TAB.RAPDIS PO (09:37)
[2025-04-19] MEDS: Enoxaparin 40 MG/0.4 ML Syringe SC (09:38)
[2025-04-19] MEDS: Doxycycline 100 MG CAPSULE PO ×2 (09:38→22:27)
[2025-04-19] MEDS: oxyCODONE HCl Cr 10 MG Tablet 20 MG PO ×2 (09:48→22:28)
--- NOTE | 2025-04-19 11:33 | PN_ITS ---
Subjective Subjective Patient seen and examined. He had no active complaints. He said he got short of breath overnight and had to be put back on 2L of oxygen. Review of systems is otherwise negative. HE is awaiting placement. Objective Data Objective Data Vital Signs: Vital Signs Temp Pulse Resp BP Pulse Ox O2 Del Method O2 Flow Rate 97.8 F 77 18 135/76 H 97 Nasal Cannula 2 04/19/25 07:58 04/19/25 07:58 04/19/25 07:58 04/19/25 07:58 04/19/25 07:58 04/19/25 08:01 04/19/25 08:45 Oxygen Flow Rate (L/min) 2 Oxygen Delivery Method Nasal Cannula Weight: 143 lb 8.335 oz Body Mass Index (BMI) 20.5 Intake & Output: Intake and Output for Last 24 Hours 04/17/25 04/18/25 04/19/25 23:59 23:59 23:59 Intake Total 478.54 / 478.54 100 / 100 Output Total 1305 / 1305 550 / 550 0 / 0 Balance -826.46 / -826.46 -450 / -450 0 / 0 Lab / Micro Data 04/19/25 03:54 04/19/25 03:54 Labs: Laboratory Results - last 24 hr 04/18/25 11:32: POC Glucose 218 H 04/18/25 16:29: POC Glucose 171 H 04/18/25 22:56: POC Glucose 127 H 04/19/25 03:54: WBC 9.0, RBC 3.11 L, Hgb 10.6 L, Hct 32.0 L, MCV 102.9 H, MCH 34.1 H, MCHC 33.1, RDW Std Deviation 53.0 H, RDW Coeff of Berta 14.1, Plt Count 259, MPV 10.5, Immature Gran % (Auto) 0.400, Neut % (Auto) 77.1 H, Lymph % (Auto) 10.3 L, [place] % (Auto) 6.3, Eos % (Auto) 4.6, Baso % (Auto) 1.3 H, Absolute Neuts (auto) 6.9, Absolute Lymphs (auto) 0.92, Nucleated RBC % 0, Sodium 136, Potassium 3.7, Chloride 101, Carbon Dioxide 24.4, Anion Gap 10, BUN 13, Creatinine 0.52 L, Estim Creat Clear Calc 137.36, Est GFR (MDRD) Non-Af 114, BUN/Creatinine Ratio 23.9 H, Glucose 110 H, Calcium 9.4 04/19/25 06:30: POC Glucose 104 Micro: Microbiology 04/14/25 20:15 Blood Culture (Wb) - Anticubital Left Blood Culture - Preliminary No growth in 48 hours. 04/14/25 19:30 Blood Culture (Wb) - Port Blood Culture - Preliminary No growth in 48 hours. 04/14/25 19:30 Urine, Catheterized Urine Culture - Final Staphylococcus lugdunensis 04/14/25 22:34 Mucosa - Nose SARS-CoV-2, Influenza & RSV (PCR) - Final Physical Exam Const alert, oriented x3, no apparent distress and average body habitus Constitutional Narrative: frail General Appearance: cooperative HEENT normocephalic, head/scalp atraumatic, hearing grossly normal bilaterally and moist oral mucous membranes Eyes PERRL, EOMs intact bilaterally and conjunctivae normal Neck no lymphadenopathy, supple and no JVD Lymph Lymphatic: no lymphadenopathy noted and no lymphedema noted Resp normal respiratory effort and clear to auscultation bilaterally Cardio regular rate, regular rhythm, S1 normal heart sound, S2 normal heart sound and no murmurs GI normal to inspection, nondistended, normoactive bowel sounds, soft to palpation, non-tender and non-distended Extremity normal to inspection, full ROM, normal capillary refill, no clubbing, cyanosis or edema and no calf tenderness General Extremity: no tenderness to palpation of joints or extremities Skin Skin Narrative: chemo port in situ Neuro CN's II-XII intact bilaterally, moves all extremities, no focal motor deficits and no sensory deficits noted Sensorium / Orientation: awake and alert Speech: speech normal Motor Exam: general weakness Psych thought process normal, cooperative and affect normal Appearance: appropriate Assessment & Plan Assessment/Plan (1) Intractable nausea and vomiting: (2) Acute UTI: (3) Pneumonia: QUALIFIERS: Laterality: right Lung location: unspecified part of lung Pneumonia type: due to unspecified organism Qualified Code(s): J18.9 - Pneumonia, unspecified organism (4) Generalized weakness: (5) Frequent falls: PLAN: Plan #COmmunity acquired pneumonia * Chest x-ray showed ill-defined opacities in the right middle lobe and lower lobe airspace opacities which may represent pneumonitis versus pneumonia or neoplasm * Urine for strep and Legionella negative. * Breathing treatments bronchodilators. Titrate oxygen as needed to maintain saturation above 90%. * was on room air, but put on 2L of oxygen by nasal canula ovenright * On PO doxycycline based on sensitivities. #Acute gastroenteritis: * Resolved. * #UTI: * Urinalysis does show evidence of UTI. * On IV Zosyn which should cover UTI also. * Urine culture growing Staph lugdunensis, * on PO doxycycline; to complete a 5 day course. * #Hypomagnesemia: resolved. # Elevated liver enzymes: * AST, ALT and ALP are elevated. * This may be due to the chemotherapy. * Will monitor and trend. * If continues to trend upwards we will do further workup. 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 * follow up with oncology on outpatient basis #Debility and weakness with frequent falls #Benign essential hypertension: fairly well controlled. Does not appear to be on any oral BP meds.IV hydralazine as needed #Hyperlipidemia: On statin #CAD s/p stents: On statin #History of type 2 diabetes mellitus: * On linagliptin and metformin. Insulin sliding scale. Accu-Cheks ACHS. Glipizide and metformin on hold. #History of anxiety with depression: on duloxetine and bupropion #History of osteoarthritis with chronic pain: On hydrocodone chronically. DVT prophylaxis: Lovenox Disposition: Patient awaiting discharge to TCU pending precert. Charges/Coding Visit Charges Inpatient E&M: 25591 Subs Hosp L2
[2025-04-19 12:39] LABS: Bedside Glucose 166 mg/dL (74-106)
[2025-04-19] MEDS: Insulin Lispro 100 UNIT/ML INSULN.PEN SC ×3 (13:05→22:29)
[2025-04-19 13:35] LABS: AST(SGOT) 70 U/L (<=37); Alanine Aminotransfer ALT/SGPT 44 U/L (<=46); Albumin, Serum 3.2 g/dL (3.4-4.8); Alkaline Phosphatase 233 U/L (40-129); Globulin 2.9 g/dL (2.2-4.2); Protein, Total 6.2 g/dL (5.9-8.4); Total Bilirubin 0.35 mg/dL (0.00-1.30)
[2025-04-19] MEDS: Glucerna Shake 120 ML LIQUID PO ×2 (14:39→22:26)
[2025-04-19 16:55] LABS: Bedside Glucose 265 mg/dL (74-106)
[2025-04-19] MEDS: Gabapentin 600 MG Tablet PO (17:23)
[2025-04-19] MEDS: Pantoprazole Sodium 40 MG Tablet PO (22:27)
[2025-04-19 23:21] LABS: Bedside Glucose 159 mg/dL (74-106)
[2025-04-20 02:28] VITALS: O2SAT 89
[2025-04-20 02:30] VITALS: BP 134/78; PULSE 77; RESP 16; TEMP 36.6; O2SAT 92
[2025-04-20 03:11] VITALS: BMI 20.5
[2025-04-20 05:19] LABS: Absolute Lymphocyte Count 0.91 X10^3/uL (0.83-4.51); Absolute Neutrophil Count 6.4 X10^3/uL (2.0-7.7); Basophil# 0.11 X10^3/uL; Basophil% 1.3 % (0-1); Eosinophil# 0.51 X10^3/uL; Hematocrit 32.9 % (40-54); Hemoglobin 10.8 g/dL (13.0-16.5); Lymphocyte # 0.91 X10^3/ul (0.83-4.51); Lymphocyte % 10.7 % (19-41); Mean Corp Hgb Conc 32.8 g/dL (32-36); Mean Corpuscular Hgb 33.3 pg (27.0-32.0); Mean Corpuscular Volume 101.5 fL (80-94); Mean Platelet Vol. 10.5 fl (6.2-12.0); Monocyte# 0.61 X10^3/uL; Monocyte% 7.1 % (0-10); NRBC Flagged by Analyzer 0 % (0-5); Neutrophil # 6.38 X10^3/uL (2.7-7.7); Neutrophil % 74.7 % (47-70); Platelet Count 259 K/mm3 (150-450); RBC Distribution Width SD 52.7 fl (35.1-43.9); Red Blood Count 3.24 M/mm3 (4.6-6.2); White Blood Count 8.5 K/mm3 (4.4-11.0)
[2025-04-20 05:49] LABS: Anion Gap 13 (5-15); BUN 10 mg/dL (4-19); BUN/Creat Ratio 19.5 RATIO (10-20); Calcium,Total 9.7 mg/dL (7.6-11.0); Carbon Dioxide 22.8 mmol/L (21.0-32.0); Chloride 99 mmol/L (98-108); Creatinine, Serum 0.51 mg/dL (0.70-1.20); EST Glomerular Filtration Rate 115 (>60); Glucose 112 mg/dL (70-99); Sodium Level 135 mmol/L (133-145)
[2025-04-20 06:53] VITALS: PULSE 84; RESP 23; O2SAT 91
[2025-04-20] MEDS: Ipratropium/Albuterol Sulfate 3 ML AMPUL.NEB INHALATION (06:53)
--- NOTE | 2025-04-20 07:59 | PN.HOSP_ITS ---
Reason for Visit Reason for Visit: Diagnoses Unspecified malignant neoplasm of skin, unspecified (04/14/25) Mantle cell lymphoma, unspecified site (04/14/25) Immunodeficiency, unspecified (04/14/25) Encephalopathy, unspecified (04/14/25) Pneumonia, unspecified organism (04/14/25) Urinary tract infection, site not specified (04/14/25) Nausea with vomiting, unspecified (04/14/25) Diarrhea, unspecified (04/14/25) Repeated falls (04/14/25) Weakness (04/14/25) Adverse effect of unspecified drugs, medicaments and biological substances, initial encounter (04/14/25) Objective Data Objective Data Vital Signs: Vital Signs Temp Pulse Resp BP Pulse Ox O2 Del Method O2 Flow Rate 97.8 F 77 16 134/78 H 92 Nasal Cannula 4 04/20/25 02:30 04/20/25 02:30 04/20/25 02:30 04/20/25 02:30 04/20/25 02:30 04/20/25 04:36 04/20/25 04:36 Oxygen Flow Rate (L/min) 4 Oxygen Delivery Method Nasal Cannula Weight: 142 lb 10.225 oz Body Mass Index (BMI) 20.5 Intake & Output: Intake and Output for Last 24 Hours 04/18/25 04/19/25 04/20/25 23:59 23:59 23:59 Intake Total 100 / 100 700 / 700 Output Total 550 / 550 575 / 825 450 / 450 Balance -450 / -450 125 / -125 -450 / -450 Lab / Micro Data 04/20/25 04:01 04/20/25 04:01 Labs: Laboratory Results - last 24 hr 04/19/25 03:54: Total Bilirubin 0.35, Direct Bilirubin 0.20, AST 70 H, ALT 44, A lkaline Phosphatase 233 H, Total Protein 6.2, Albumin 3.2 L, Globulin 2.9 04/19/25 12:21: POC Glucose 166 H 04/19/25 16:32: POC Glucose 265 H 04/19/25 22:29: POC Glucose 159 H 04/20/25 04:01: WBC 8.5, RBC 3.24 L, Hgb 10.8 L, Hct 32.9 L, MCV 101.5 H, MCH 33.3 H, MCHC 32.8, RDW Std Deviation 52.7 H, RDW Coeff of Berta 14.0, Plt Count 259, MPV 10.5, Immature Gran % (Auto) 0.200, Neut % (Auto) 74.7 H, Lymph % (Auto) 10.7 L, [place] % (Auto) 7.1, Eos % (Auto) 6.0 H, Baso % (Auto) 1.3 H, Absolute Neuts (auto) 6.4, Absolute Lymphs (auto) 0.91, Nucleated RBC % 0, Sodium 135, Potassium 4.0, Chloride 99, Carbon Dioxide 22.8, Anion Gap 13, BUN 10, Creatinine 0.51 L, Estim Creat Clear Calc 139.20, Est GFR (MDRD) Non-Af 115, BUN/Creatinine Ratio 19.5, Glucose 112 H, Calcium 9.7 Micro: Microbiology 04/14/25 20:15 Blood Culture (Wb) - Anticubital Left Blood Culture - Final No growth in 5 days. 04/14/25 19:30 Blood Culture (Wb) - Port Blood Culture - Final No growth in 5 days. 04/14/25 19:30 Urine, Catheterized Urine Culture - Final Staphylococcus lugdunensis 04/14/25 22:34 Mucosa - Nose SARS-CoV-2, Influenza & RSV (PCR) - Final Assessment & Plan Assessment/Plan (1) Intractable nausea and vomiting: (2) Acute UTI: (3) Pneumonia: QUALIFIERS: Pneumonia type: due to unspecified organism L aterality: right Lung location: unspecified part of lung Qualified Code(s): J 18.9 - Pneumonia, unspecified organism (4) Generalized weakness: (5) Frequent falls: PLAN: Plan #COmmunity acquired pneumonia * Chest x-ray showed ill-defined opacities in the right middle lobe and lower lobe airspace opacities which may represent pneumonitis versus pneumonia or neoplasm * Urine for strep and Legionella negative. * Breathing treatments bronchodilators. Titrate oxygen as needed to maintain saturation above 90%. * was on room air, but put on 2L of oxygen by nasal canula ovenright * On PO doxycycline based on sensitivities. #Acute gastroenteritis: * Resolved. * #UTI: * Urinalysis does show evidence of UTI. * On IV Zosyn which should cover UTI also. * Urine culture growing Staph lugdunensis, * on PO doxycycline; to complete a 5 day course. * #Hypomagnesemia: resolved. # Elevated liver enzymes: * AST, ALT and ALP are elevated. * This may be due to the chemotherapy. * Will monitor and trend. * If continues to trend upwards we will do further workup. 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 * follow up with oncology on outpatient basis #Debility and weakness with frequent falls #Benign essential hypertension: fairly well controlled. Does not appear to be on any oral BP meds.IV hydralazine as needed #Hyperlipidemia: On statin #CAD s/p stents: On statin #History of type 2 diabetes mellitus: * On linagliptin and metformin. Insulin sliding scale. Accu-Cheks ACHS. Glipizide and metformin on hold. #History of anxiety with depression: on duloxetine and bupropion #History of osteoarthritis with chronic pain: On hydrocodone chronically. DVT prophylaxis: Lovenox Disposition: Patient awaiting discharge to TCU pending precert.
[2025-04-20 08:43] VITALS: BP 134/78; PULSE 75; RESP 18; TEMP 36.4; O2SAT 95
[2025-04-20] MEDS: Doxycycline 100 MG CAPSULE PO (08:49)
[2025-04-20] MEDS: Lactobacillis Acidophilus 1 CAP PO (08:49)
[2025-04-20] MEDS: predniSONE 10 MG Tablet PO (08:49)
[2025-04-20] MEDS: buPROPion (XL) 150 MG TABLET.XL PO (08:50)
[2025-04-20] MEDS: DULoxetine Hcl 60 MG Capsule PO (08:50)
[2025-04-20] MEDS: Enoxaparin 40 MG/0.4 ML Syringe SC (08:50)
[2025-04-20] MEDS: OLANZapine 5 MG/TAB TAB.RAPDIS PO (08:51)
[2025-04-20] MEDS: Ondansetron 4 MG/2 ML Vial IV (08:59)
--- NOTE | 2025-04-20 09:09 | NURSING ---
Pt had no complaints of nausea, meds given. Pt threw up following medication administration.
--- NOTE | 2025-04-20 10:54 | TREXTCAR_ITS ---
Diet Diet Order/Speech Therapy: INPATIENT Hospital Diet / Speech Therapy Order(s) 04/15/25 14:33 Diet: Regular - General Routine Orders/Code Status Suppository Type: Dulcolax 10mg Suppository Frequency: Daily PRN DC O2, CPAP, BIPAP needs Home O2 Discharge instructions: No Therapies Extremity Affected:: Bilateral Lower Physical Therapy: Eval and Treat Occupational Therapy: Eval and Treat Speech Therapy: Eval and Treat Problem/Diagnosis (1) Intractable nausea and vomiting: Status: Acute Code(s): R11.2 - Nausea with vomiting, unspecified (2) Acute UTI: Status: Acute Code(s): N39.0 - Urinary tract infection, site not specified (3) Pneumonia: Status: Acute Code(s): J18.9 - Pneumonia, unspecified organism (4) Generalized weakness: Status: Acute Code(s): R53.1 - Weakness (5) Frequent falls: Status: Acute Code(s): R29.6 - Repeated falls Plan #COmmunity acquired pneumonia * Chest x-ray showed ill-defined opacities in the right middle lobe and lower lobe airspace opacities which may represent pneumonitis versus pneumonia or neoplasm * Urine for strep and Legionella negative. * Breathing treatments bronchodilators. Titrate oxygen as needed to maintain saturation above 90%. * was on room air, but put on 2L of oxygen by nasal canula ovenright * On PO doxycycline based on sensitivities. #Acute gastroenteritis: * Resolved. * #UTI: * Urinalysis does show evidence of UTI. * On IV Zosyn which should cover UTI also. * Urine culture growing Staph lugdunensis, * on PO doxycycline; to complete a 5 day course. * #Hypomagnesemia: resolved. # Elevated liver enzymes: * AST, ALT and ALP are elevated. * This may be due to the chemotherapy. * Will monitor and trend. * If continues to trend upwards we will do further workup. 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 * follow up with oncology on outpatient basis #Debility and weakness with frequent falls #Benign essential hypertension: fairly well controlled. Does not appear to be on any oral BP meds.IV hydralazine as needed #Hyperlipidemia: On statin #CAD s/p stents: On statin #History of type 2 diabetes mellitus: * On linagliptin and metformin. Insulin sliding scale. Accu-Cheks ACHS. Glipizide and metformin on hold. #History of anxiety with depression: on duloxetine and bupropion #History of osteoarthritis with chronic pain: On hydrocodone chronically. DVT prophylaxis: Lovenox Disposition: Patient awaiting discharge to TCU pending precert. Allergies/Procedures Done in Hospital Allergies No Known Allergies Allergy (Verified 04/14/25 18:21) Type of Care/Length of Stay Estimated LOS: Convalescent Care Less Than 30 days Type of Care Needed: Skilled Rehab Potential: Good Prognosis: Good Additional Orders/Day of Discharge Day of Discharge: 04/20/25 Dietary and Speech Recommendations Dietitian Recommendations/Changes: Continue regular diet with 120ml EPHP 4x meseret y with medpass. Will continue to follow, monitor oral intakes and modify nutrition interventions as needed. Discharge Plan Admission Admit Date/Time: 04/14/25 22:21 Primary Reason for Your Visit: UTI, pneumonia Attending Provider: Jason Edmondson Primary Care Provider: Baljeet Meyer Consulting Providers: Camilo Khanna; Samantha Fu Instructions Patient Instructions: Urinary Tract Infections in Men, ED Pneumonia (Adult) Discharge Orders/Prescriptions Prescriptions: New doxycycline hyclate 100 mg tablet 100 mg PO BID Qty: 10 0RF Continued albuterol 90 mcg/actuation Aerosol See Rx Instructions .ROUTE .COMPLEX Rx Instructions: PRN gabapentin 300 mg capsule 300 mg PO Q12H Patient Comments: Take 1 capsule by mouth 3 times per day for neuropathic pain Rx Instructions: 300 breakfast and lunch and 600 at dinner prednisone 10 mg tablet 10 mg PO DAILY olanzapine 5 mg tablet 5 mg PO DAILY bupropion HCl 150 mg tablet extended release 24 hr 150 mg PO BID ondansetron 8 mg tablet,disintegrating 8 mg PO Q8H PRN PRN (Reason: nausea) oxycodone 10 mg tablet 10 mg PO Q6H PRN (Reason: pain) oxycodone [OxyContin] 20 mg tablet,oral only,ext.rel.12 hr 20 mg PO BID glimepiride 1 mg tablet 1 mg PO DAILY prochlorperazine maleate 10 mg tablet 10 mg PO Q6H PRN (Reason: nausea and vomiting) acetaminophen 500 mg tablet 500 mg PO Q8H PRN PRN (Reason: pain) metformin 1,000 mg tablet 1,000 mg PO BID duloxetine 30 mg capsule,delayed release(DR/EC) 60 mg PO DAILY Breztri Aerosphere 160-9-4.8 mcg/actuation HFA aerosol inhaler 2 inh inhalation BID Referrals / Follow Up: [facility] [Emergency Nurse] - Within 1 Week Baljeet Meyer DO [Primary Care Provider] - Within 1 Week Disposition Disposition (needs filled in before D/C Order can be placed): Home, Self Care (3) Pneumonia Qualifiers: Laterality: right Lung location: unspecified part of lung Pneumonia type: due to unspecified organism Qualified Code(s): J18.9 - Pneumonia, unspecified organism
[2025-04-20 12:15] LABS: Bedside Glucose 132 mg/dL (74-106)
[2025-04-20] MEDS: Gabapentin 300 MG Capsule PO (12:21)
[2025-04-20] MEDS: oxyCODONE HCl Cr 10 MG Tablet 20 MG PO (12:22)
[2025-04-20 12:26] VITALS: BP 138/79; PULSE 79; RESP 16; TEMP 36.5; O2SAT 92
--- NOTE | 2025-04-20 13:03 | DS.PCM_ITS ---
Providers Date of Admission: 04/14/25 Date of Discharge: 04/20/25 Primary Care Physician: Dr. Baljeet Meyer, DO Reason For Visit: UTI, PNA, INTRACTABLE N/V, NONBLOODY DIARRHEA ADR Diagnosis Discharge Diagnosis (1) Intractable nausea and vomiting: Status: Acute Code(s): R11.2 - Nausea with vomiting, unspecified (2) Acute UTI: Status: Acute Code(s): N39.0 - Urinary tract infection, site not specified (3) Pneumonia: Status: Acute Code(s): J18.9 - Pneumonia, unspecified organism Qualifiers: Laterality: right Lung location: unspecified part of lung Pneumonia type: due to unspecified organism Qualified Code(s): J18.9 - Pneumonia, unspecified organism (4) Generalized weakness: Status: Acute Code(s): R53.1 - Weakness (5) Frequent falls: Status: Acute Code(s): R29.6 - Repeated falls Plan 59-year-old gentleman was was admitted with multiple complaints including vomiting diarrhea and nonbloody for 3 days. He also had an coughing short of breath with history of lung cancer on chemotherapy last treatment 3 weeks ago. Denies recent antibiotic #Community acquired pneumonia * Chest x-ray showed ill-defined opacities in the right middle lobe and lower lobe airspace opacities which may represent pneumonitis versus pneumonia or neoplasm * Urine for strep and Legionella negative. * Breathing treatments bronchodilators. Titrate oxygen as needed to maintain saturation above 90%. * was on room air, but put on 2L of oxygen by nasal canula ovenright * On PO doxycycline based on sensitivities. 04/20: Patient had IV Zosyn from 04/14 to 04/17 and then changed to doxycycline. I feel patient needs coverage for the gram-negative and GPC with history of cancer therefore discharged on cefdinir and doxycycline. #Acute gastroenteritis: * Resolved. * #UTI: * Urinalysis does show evidence of UTI. * On IV Zosyn which should cover UTI also. * Urine culture growing Staph lugdunensis, * on PO doxycycline; to complete a 5 day course. 04/20: As mentioned above #Hypomagnesemia: resolved. # Elevated liver enzymes: * AST, ALT and ALP are elevated. * This may be due to the chemotherapy. * Will monitor and trend. * If continues to trend upwards we will do further workup. 04/20: ALP 233, AST 70, ALT 44. 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 * follow up with oncology on outpatient basis #Debility and weakness with frequent falls #Benign essential hypertension: fairly well controlled. Does not appear to be on any oral BP meds.IV hydralazine as needed #Hyperlipidemia: On statin #CAD s/p stents: On statin #History of type 2 diabetes mellitus: * On linagliptin and metformin. Insulin sliding scale. Accu-Cheks ACHS. Glipizide and metformin on hold. #History of anxiety with depression: on duloxetine and bupropion #History of osteoarthritis with chronic pain: On hydrocodone chronically. DVT prophylaxis: Lovenox Patient is being discharged to TCU. Discharge medication reconciliation done. Discharge follow-up instructions completed. Discharge process discussed with the patient and all questions were answered to patient's satisfaction. Follow with PCP in 1 to 2 weeks Total time spent, exact 35 minutes on discharge meds reconciliation, examination, coordination of care with nurses and ancillary staff, review of imaging and blood test and discussion with the patient on follow-up instructions. Medications at Discharge Home Medications albuterol 90 mcg/actuation aerosol inhaler See Rx Instructions .Route .COMPLEX 03/17/21 gabapentin 300 mg capsule 300 mg PO Q12H 06/20/21 acetaminophen 500 mg tablet 500 mg PO Q8H PRN PRN pain 04/14/25 budesonide 160 mcg-glycopyr 9 mcg-formot 4.8 mcg/actuation HFA inhaler (Breztri Aerosphere) 2 inh inhalation BID 04/14/25 bupropion HCl 150 mg 24 hr tablet, extended release 150 mg PO BID 04/14/25 duloxetine 30 mg capsule,delayed release 60 mg PO DAILY 04/14/25 glimepiride 1 mg tablet 1 mg PO DAILY 04/14/25 metformin 1,000 mg tablet 1,000 mg PO BID 04/14/25 olanzapine 5 mg tablet 5 mg PO DAILY 04/14/25 ondansetron 8 mg disintegrating tablet 8 mg PO Q8H PRN PRN nausea 04/14/25 oxycodone 10 mg tablet 10 mg PO Q6H PRN pain 04/14/25 oxycodone 20 mg tablet,crush resistant,extended release 12 hr (OxyContin) 20 mg PO BID 04/14/25 prednisone 10 mg tablet 10 mg PO DAILY 04/14/25 prochlorperazine maleate 10 mg tablet 10 mg PO Q6H PRN nausea and vomiting 04/14/25 doxycycline hyclate 100 mg tablet 100 mg PO BID #10 tabs 04/17/25 cefdinir 300 mg capsule 300 mg PO BID 5 days #10 caps 04/20/25 Physical Exam Narrative Patient has mild cough, weak cough overall generalized weakness. No fever. Chronic mild shortness of breath/dyspnea mainly on exertion Physical exam General: Alert, Oriented x3, Cooperative HEENT: Atraumatic, PERRLA, EOMI, Normocephalic. Oral: No Gingival or Mucosal Lesions/ Ulcerations Neck: Supple, No JVD, Negative Carotid Bruits Chest wall/Lungs: Right-sided chest port. Air entry diminished in bilateral lung bases. Mild expiratory rhonchi Cardiovascular: Regular rate and rhythm, Normal S1,S2, systolic murmur Abdomen: Bowel Sounds Present, Soft, Non Tender, Non-Distended : No dysuria. No renal angle tenderness. No suprapubic tenderness. Extremities: No edema, Capillary Refill Less than 3 Seconds Skin: No rashes, No breakdown Musculoskeletal: No Tenderness to Palpation of Joints or Extremities. Muscle strength 4/5 at knees and hip joints Neurological: Cranial nerves II-XII grossly intact, DTR 2+/4. No acute focal neurological deficit. Psych/Mental Status: Flat affect. Weight / BMI Weight Weight: 142 lb 10.225 oz Body Mass Index (BMI) 20.5 ABG / Lab / Microbiology Data 04/20/25 04:01 04/20/25 04:01 Laboratory: Laboratory Results - last 24 hr 04/19/25 03:54: Total Bilirubin 0.35, Direct Bilirubin 0.20, AST 70 H, ALT 44, A lkaline Phosphatase 233 H, Total Protein 6.2, Albumin 3.2 L, Globulin 2.9 04/19/25 16:32: POC Glucose 265 H 04/19/25 22:29: POC Glucose 159 H 04/20/25 04:01: WBC 8.5, RBC 3.24 L, Hgb 10.8 L, Hct 32.9 L, MCV 101.5 H, MCH 33.3 H, MCHC 32.8, RDW Std Deviation 52.7 H, RDW Coeff of Berta 14.0, Plt Count 259, MPV 10.5, Immature Gran % (Auto) 0.200, Neut % (Auto) 74.7 H, Lymph % (Auto) 10.7 L, [place] % (Auto) 7.1, Eos % (Auto) 6.0 H, Baso % (Auto) 1.3 H, Absolute Neuts (auto) 6.4, Absolute Lymphs (auto) 0.91, Nucleated RBC % 0, Sodium 135, Potassium 4.0, Chloride 99, Carbon Dioxide 22.8, Anion Gap 13, BUN 10, Creatinine 0.51 L, Estim Creat Clear Calc 139.20, Est GFR (MDRD) Non-Af 115, BUN/Creatinine Ratio 19.5, Glucose 112 H, Calcium 9.7 04/20/25 11:49: POC Glucose 132 H Microbiology: Microbiology 04/14/25 20:15 Blood Culture (Wb) - Anticubital Left Blood Culture - Final No growth in 5 days. 04/14/25 19:30 Blood Culture (Wb) - Port Blood Culture - Final No growth in 5 days. 04/14/25 19:30 Urine, Catheterized Urine Culture - Final Staphylococcus lugdunensis 04/14/25 22:34 Mucosa - Nose SARS-CoV-2, Influenza & RSV (PCR) - Final D/C Instructions Discharge Diet: Low fat / Low cholesterol Weight Bearing Status: Weight bearing as tolerated Call your doctor if you observe: Fever of 101 or Higher, Shortness of breath, Dizziness, Swelling in the ankles and Chest pain DC O2, CPAP, BIPAP Needs Home O2 Discharge instructions: No Meaningful Use Info Meaningful Use Meaningful Use Diagnoses (Choose all that apply): None applicable Ischemic Stroke Statin Dosing Therapy Reference: STATIN DOSE THERAPY REFERENCE: * Patients > 75 years receive moderate or high dose statin therapy. * Patients 75 years or YOUNGER should receive HIGH intensity statin dose unless contraindicated. You will be required to document reason for non-treatment if statin daily dose does not meet guidelines. HIGH DOSE STATIN THERAPY DAILY Atorvastatin > than or = to 40 mg Rosuvastatin > than or = to 20 mg Amlodipine + Atorvastatin > than or = to 2.5/40 mg Ezetimibe + Simvastatin 10/80 mg Simvastatin 80mg Discharge Plan Admission Admit Date/Time: 04/14/25 22:21 Primary Reason for Your Visit: UTI, pneumonia Attending Provider: Jason Edmondson Primary Care Provider: Baljeet Meyer Consulting Providers: Camilo Khanna; Samnatha Fu Instructions Patient Instructions: Urinary Tract Infections in Men, ED Pneumonia (Adult) Discharge Orders/Prescriptions Prescriptions: New doxycycline hyclate 100 mg tablet 100 mg PO BID Qty: 10 0RF cefdinir 300 mg capsule 300 mg PO BID 5 Days Qty: 10 0RF Continued albuterol 90 mcg/actuation Aerosol See Rx Instructions .ROUTE .COMPLEX Rx Instructions: PRN gabapentin 300 mg capsule 300 mg PO Q12H Patient Comments: Take 1 capsule by mouth 3 times per day for neuropathic pain Rx Instructions: 300 breakfast and lunch and 600 at dinner prednisone 10 mg tablet 10 mg PO DAILY olanzapine 5 mg tablet 5 mg PO DAILY bupropion HCl 150 mg tablet extended release 24 hr 150 mg PO BID ondansetron 8 mg tablet,disintegrating 8 mg PO Q8H PRN PRN (Reason: nausea) oxycodone 10 mg tablet 10 mg PO Q6H PRN (Reason: pain) oxycodone [OxyContin] 20 mg tablet,oral only,ext.rel.12 hr 20 mg PO BID glimepiride 1 mg tablet 1 mg PO DAILY prochlorperazine maleate 10 mg tablet 10 mg PO Q6H PRN (Reason: nausea and vomiting) acetaminophen 500 mg tablet 500 mg PO Q8H PRN PRN (Reason: pain) metformin 1,000 mg tablet 1,000 mg PO BID duloxetine 30 mg capsule,delayed release(DR/EC) 60 mg PO DAILY Breztri Aerosphere 160-9-4.8 mcg/actuation HFA aerosol inhaler 2 inh inhalation BID Referrals / Follow Up: [facility] [Emergency Nurse] - Within 1 Week Baljeet Meyer DO [Primary Care Provider] - Within 1 Week Disposition Disposition (needs filled in before D/C Order can be placed): Home, Self Care Charges/Coding Visit Charges Inpatient E&M: 91550 Disch Hosp >30min
--- NOTE | 2025-04-20 14:17 | NURSING ---
Report called to TCU, port left acessed per pcu nurse request
--- NOTE | 2025-04-20 14:19 | NURSING ---
Report called to TCU nurse, Port left accessed per TCU nurse request.
== END 2025-04-20 15:23 | disposition skilled nursing facility (03) | DRG 177 ==
LOC: ED 21:18 → PCU 22:54
PROVIDERS: Student in an Organized Health Care Education/Training Program; Admitting Provider Internal Medicine; Emergency Provider Emergency Medicine; PCP Internal Medicine Hematology & Oncology; Visit Provider Internal Medicine
DX: J15.69 Pneumonia due to other Gram-negative bacteria (principal); G93.41 Metabolic encephalopathy; C83.10 Mantle cell lymphoma, unspecified site; J44.0 Chronic obstructive pulmonary disease with (acute) lower respiratory infection; D84.9 Immunodeficiency, unspecified; N39.0 Urinary tract infection, site not specified; E11.9 Type 2 diabetes mellitus without complications; B95.7 Other staphylococcus as the cause of diseases classified elsewhere; I10 Essential (primary) hypertension; J18.9 Pneumonia, unspecified organism; F41.8 Other specified anxiety disorders; I25.10 Atherosclerotic heart disease of native coronary artery without angina pectoris; E78.5 Hyperlipidemia, unspecified; K52.9 Noninfective gastroenteritis and colitis, unspecified; M19.90 Unspecified osteoarthritis, unspecified site; E83.42 Hypomagnesemia; I25.2 Old myocardial infarction; R11.2 Nausea with vomiting, unspecified; R53.81 Other malaise; Z86.718 Personal history of other venous thrombosis and embolism; G89.4 Chronic pain syndrome; Z95.5 Presence of coronary angioplasty implant and graft; Z87.891 Personal history of nicotine dependence; T45.1X5A Adverse effect of antineoplastic and immunosuppressive drugs, initial encounter; Z79.02 Long term (current) use of antithrombotics/antiplatelets; Z79.899 Other long term (current) drug therapy; Z79.84 Long term (current) use of oral hypoglycemic drugs; Z92.21 Personal history of antineoplastic chemotherapy; Z79.891 Long term (current) use of opiate analgesic; R29.6 Repeated falls
CPT/HCPCS: 36415; 36591; 70450; 71046; 71250; 74176; 80048; 80053; 80076; 80307; 81001; 82077; 82550; 82607; 82746; 82803; 82962; 83036; 83605; 83735; 84100; 84443; 85025; 87040; 87077; 87086; 87088; 87186; 87631; 93005; 94640; 94668; 97116; 97162; 97166; 97530; 97535; 97802; 97803; 99285; A4216; J2405

== ENCOUNTER 2025-04-20 15:34 | Inpatient (IN) | payer MEDICARE, SELFPAY ==
[2025-04-20 15:39] VITALS: BP 128/80; PULSE 80; PULSE 91; RESP 16; RESP 18; TEMP 37; O2SAT 96; O2SAT 97; BMI 20.5
--- NOTE | 2025-04-20 17:00 | NURSING ---
When this nurse asked pt. if he had a POA, pt. stated no. In pt. contacts lists a significant other is listed. When pt. asked if he had a significant other pt. stated no. Pt. stated his next of kin is his son Fox. Fox is not listed in pt. contacts. Per pt. Fox's phone number is [phone]. Voicemail left for Test Administrator to verify pt. person to contact.
[2025-04-20] MEDS: metFORMIN HCl 1,000 MG Tablet 1000 MG PO (17:18)
[2025-04-20 17:37] LABS: Bedside Glucose 175 mg/dL (74-106)
[2025-04-20 17:58] VITALS: O2SAT 96
--- NOTE | 2025-04-20 19:04 | PCM.HP.STD ---
HPI - General General Date of Admission: 04/20/25 Date of Service: 04/22/25 Chief Complaint: Here for rehabilitation. HPI Narrative SHONDA COTTO, is a 59 Male who presents with followin04/14/2025 [facility] ED fall. Dr. Meyer treating squamous cell lung cancer with chemotherapy q3w. Increasing weakness, multiple falls, vomiting, diarrhea 3 times per day, coughing. Self cath for 1 month, no recent antibiotics, found on ground. Chest X-ray showed right middle lobe infiltrate, Rocephin, Zithromax given. CT brain negative. Urinalysis c/w urinary tract infection, Rocephin given, urine culture pending. 04/14/2025 Admit [facility]. Zosyn iv for uti, urine culture pending. Zosyn iv for pneumonia. Flagyl iv for presumptive c. diff colitis. Zofran, Promethazine for c. nausea. PT/OT/CM. 04/15/2025 No complaints, on room air. Zosyn iv, urine strep negative, urine legionella negative for pneumonia. Diarrhea improved, c. diff pending. Zosyn iv for uti. 04/16/2025 Feels better, room air. Zosyn iv for pneumonia. Diarrhea resolved, c. diff pending. Nitrofurantoin po for staph lugdunesis uti. Replace magnesium. 04/17/2025 Feels much better, await discharge to TCU. Doxycycline for pneumonia/uti, stop Zosyn iv. Diarrhea resolved, stop Flagyl iv. [facility] TCU. 04/18/2025 No acute events overnight. Doxycycline for pneumonia/uti. Pre-[facility] TCU. 04/19/2025 Cefdinir, Doxycycline for pneumonia/uti. Hypomagnesemia resolved. Elevated liver function tests 2/2 chemotherapy. 04/20/2025 Admit to TCU with debility, here for rehabilitation, strengthening, prior to discharge home with significant other. [facility] Medical History (Updated 04/20/25 @ 19:[address] Ac Devries MD) History of ST elevation myocardial infarction (STEMI) (05/29/17) Fever of unknown origin Cephalgia Myalgia Mantle cell lymphoma Deep vein thrombosis (DVT) (04/21/21) Nicotine dependence Mantle cell lymphoma (03/2021) Hyperlipidemia Type 2 diabetes mellitus Essential (primary) hypertension Atherosclerotic heart disease of [place] coronary artery without angina pectoris Wears dentures Wears glasses Alcohol abuse Anxiety Depression History of steroid therapy Chronic cough COPD (chronic obstructive pulmonary disease) Pain aggravated by walking Restless legs Arthritis Suicidal ideation Home Medications ?Medication ?Instructions ?Recorded ?Last Taken ?Type albuterol 90 mcg/actuation aerosol See Rx Instructions .Route 03/17/21 Unknown History inhaler .COMPLEX respiratory gabapentin 300 mg capsule 300 mg PO Q12H nerve pain 06/20/21 04/13/25 History acetaminophen 500 mg tablet 500 mg PO Q8H PRN PRN pain 04/14/25 Unknown History budesonide 160 mcg-glycopyr 9 2 inh inhalation BID 04/14/25 Unknown History mcg-formot 4.8 mcg/actuation HFA inhaler (Breztri Aerosphere) bupropion HCl 150 mg 24 hr tablet, 150 mg PO BID anxiety 04/14/25 04/13/25 History extended release duloxetine 30 mg capsule,delayed 60 mg PO DAILY mood 04/14/25 Unknown History release glimepiride 1 mg tablet 1 mg PO DAILY diabetes 04/14/25 04/13/25 History metformin 1,000 mg tablet 1,000 mg PO BID diabetes 04/14/25 Unknown History olanzapine 5 mg tablet 5 mg PO DAILY Mood 04/14/25 04/13/25 History ondansetron 8 mg disintegrating 8 mg PO Q8H PRN PRN nausea 04/14/25 Unknown History tablet oxycodone 10 mg tablet 10 mg PO Q6H PRN pain 04/14/25 Unknown History oxycodone 20 mg tablet,crush 20 mg PO BID pain 04/14/25 Unknown History resistant,extended release 12 hr (OxyContin) prednisone 10 mg tablet 10 mg PO DAILY pneumonia 04/14/25 04/13/25 History prochlorperazine maleate 10 mg 10 mg PO Q6H PRN nausea and 04/14/25 Unknown History tablet vomiting doxycycline hyclate 100 mg tablet 100 mg PO BID uti #10 tabs 04/17/25 Unknown Rx budesonide 160 mcg-glycopyr 9 2 inh inhalation BID respiratory 04/20/25 Unknown History mcg-formot 4.8 mcg/actuation HFA inhaler (Breztri Aerosphere) cefdinir 300 mg capsule 300 mg PO BID pneumonia 5 days #10 04/20/25 Unknown Rx caps Allergy/AdvReac Type Severity Reaction Status Date / Time No Known Allergies Allergy Verified 04/14/25 18:21 Family History Father Heart disease Surgical History History of herniorrhaphy History of bone marrow biopsy (04/01/21) Port-A-Cath in place (04/15/21) History of coronary artery stent placement (05/29/17) Social History (Updated 04/20/25 @ 19:[address] Ac Devries MD) household members: significant other Smoking Status: Current every day smoker tobacco type: cigarettes alcohol intake: current alcohol intake frequency: 3 or more drinks per day Alcohol type: beer details: 6-8 beers 5 days a week substance use type: does not use ROS Constitutional Constitutional: Reports weakness; Denies chills, fever(s) or weight gain ENT HEENT: Denies headache(s), nasal congestion or nasal discharge Cardiovascular Cardiovascular: Denies chest pain or palpitations Respiratory/Chest Respiratory/Chest: Denies cough, excessive phlegm production or shortness of breath with exertion Gastrointestinal Gastrointestinal: Denies abdominal pain, nausea or vomiting Genitourinary Genitourinary: Denies dysuria Musculoskeletal Musculoskeletal: Denies joint pain or joint swelling Integumentary Integumentary: Denies rash or wounds Neurologic Neurologic: Denies focal weakness, numbness or tingling Psychiatric Psychiatric: Denies anxiety, auditory hallucinations, depression, homicidal ideation or suicidal ideation Vital Signs Vital Signs Vital Signs: 04/20/25 15:39 04/20/25 15:39 04/20/25 17:58 Temperature 98.6 F Temperature Source Temporal Pulse Rate 91 80 Pulse Rhythm Regular Pulse Strength Strong (3+) Respiratory Rate 18 16 Respiratory Effort Normal Non-Labored Respiratory Depth Normal Respiratory Pattern Normal Blood Pressure 128/80 H Blood Pressure Mean 96 Blood Pressure Source Monitor Pulse Ox 96 97 96 Oxygen Delivery Method Nasal Cannula Nasal Cannula Nasal Cannula Oxygen Flow Rate (L/min) 2 2 2 Weight Weight: 64.7 kg Body Mass Index (BMI) 20.5 Physical Exam Const alert General Appearance: cooperative HEENT normocephalic Eyes PERRL and EOMs intact bilaterally Neck supple, no JVD and no carotid bruits Resp normal respiratory effort, normal air movement and clear to auscultation bilaterally Cardio regular rate and regular rhythm GI normal to inspection, nondistended, normoactive bowel sounds, non-tender and non-distended Extremity normal capillary refill General Extremity: Negative for edema Skin no rashes or lesions noted General Skin Exam: no breakdown Psych affect normal Appearance: appropriate Results Lab / Micro Data 04/22/25 05:11 04/22/25 05:11 Labs: Laboratory Results - last 24 hr 04/20/25 17:16: POC Glucose 175 H Assessment & Plan Assessment/Plan (1) Debility: (2) Multiple falls: (3) Encephalopathy: (4) Pneumonia: QUALIFIERS: Laterality: right Lung location: unspecified part of lung Pneumonia type: due to unspecified organism Qualified Code(s): J18.9 - Pneumonia, unspecified organism (5) Urinary tract infection: (6) Gastroenteritis: (7) Hypomagnesemia: (8) Transaminitis: (9) Squamous cell lung cancer: (10) Mantle cell lymphoma: QUALIFIERS: Lymphoma site: unspecified region Qualified Code(s): C83.10 - Mantle cell lymphoma, unspecified site (11) COPD (chronic obstructive pulmonary disease): (12) Neuropathic pain: (13) Diabetes mellitus: (14) Depression: (15) Nausea: (16) Coronary artery disease: (17) Tobacco abuse: (18) Alcohol abuse: PLAN: Plan 59 year old male with below past medical history significant for squamous cell lung cancer, hospitalized for falls, encephalopathy 2/2 pneumonia, uti, complicated by acute respiratory failure with hypoxia, gastroenteritis, hypomagnesemia, transaminitis 2/2 chemotherapy, admitted to TCU with debility, here for rehabilitation, strengthening, prior to discharge home with significant other. Debility - PT/OT. Pain - Tylenol 1000mg q6 prn pain (1-3), Oxycontin 20mg bid, Oxycodone 10mg q6 prn pain (4-10). Bowel - Miralax 17gm daily, senna/colace 2 tablets bid, Magnesium citrate 300mL daily prn. Adult immunization - Administer pneumonia vaccine, covid vaccine, flu vaccine as appropriate. DVT prophylaxis - Lovenox 40mg sc daily. Pneumonia/uti - Cefdinir 300mg bid thru 04/24/2025, Doxycycline 100mg bid thru 04/24/2025. COPD - Fluticasone/Salmeterol 232-14 1 puff bid, Incruse 1 puff daily, Albuterol 2 puffs q4 prn, Prednisone 10mg daily. Diabetic polyneuropathy - Gabapentin 300mg bid. Diabetes Mellitus II - Glimepiride 1mg daily, Metformin 1000mg bidcm. Skin irritation - Calmseptine topical bid. Tinea Corporis - Nystatin powder topical bid. Nausea - Zofran 8mg q8 prn, Compazine 10mg q6 prn thru 05/04/2025. The following psychotropic medication was present on admission: Bupropion 150mg bid. Psychotropic medication therapy is indicated for a diagnosis of: Depression. Based on my clinical evaluation, continuation of the medication is necessary at this time. Gradual dose reduction plan (select one): ____ GDR will be attempted. Will monitor patient symptoms and behaviors in response to GDR. __x__ GRD contraindicated. Reason contraindicated: stable chronic detention use. The following psychotropic medication was present on admission: Duloxetine 60mg daily. Psychotropic medication therapy is indicated for a diagnosis of: Depression. Based on my clinical evaluation, continuation of the medication is necessary at this time. Gradual dose reduction plan (select one): ____ GDR will be attempted. Will monitor patient symptoms and behaviors in response to GDR. __x__ GRD contraindicated. Reason contraindicated: Stable chronic detention use. The following psychotropic medication was present on admission: Zyprexa Zydis 5mg daily. Psychotropic medication therapy is indicated for a diagnosis of: Depression. Based on my clinical evaluation, continuation of the medication is necessary at this time. Gradual dose reduction plan (select one): ____ GDR will be attempted. Will monitor patient symptoms and behaviors in response to GDR. __x__ GRD contraindicated. Reason contraindicated: stable chronic detention use.
[2025-04-20] MEDS: oxyCODONE HCl Cr 10 MG Tablet 20 MG PO (21:43)
[2025-04-20] MEDS: Fluticasone/Salmeterol 232-14 Inhaler 1 PUFF INHALATION (21:43)
[2025-04-20] MEDS: Doxycycline 100 MG CAPSULE PO (21:44)
[2025-04-20] MEDS: Cefdinir 300 MG Capsule PO (21:44)
[2025-04-20] MEDS: buPROPion (XL) 150 MG TABLET.XL PO (21:45)
[2025-04-20] MEDS: Senna/Docusate Sodium 1 Tablet 2 TABLET PO (21:45)
[2025-04-20] MEDS: Menthol/Lanolin/Calamine/Znox 113 GM Tube 1 APPLIC TOPICAL (21:47)
[2025-04-20] MEDS: Nystatin Powder 15gm Bottle 1 APPLIC TOPICAL (21:47)
[2025-04-21 05:47] VITALS: PULSE 83; RESP 18; O2SAT 88
[2025-04-21 06:01] LABS: Absolute Lymphocyte Count 0.64 X10^3/uL (0.83-4.51); Absolute Neutrophil Count 9.8 X10^3/uL (2.0-7.7); Basophil# 0.08 X10^3/uL; Basophil% 0.7 % (0-1); Eosinophil# 0.19 X10^3/uL; Eosinophils% 1.7 % (0-5); Hematocrit 32.5 % (40-54); Hemoglobin 10.9 g/dL (13.0-16.5); Lymphocyte # 0.64 X10^3/ul (0.83-4.51); Lymphocyte % 5.6 % (19-41); Mean Corp Hgb Conc 33.5 g/dL (32-36); Mean Corpuscular Hgb 34.1 pg (27.0-32.0); Mean Corpuscular Volume 101.6 fL (80-94); Mean Platelet Vol. 10.6 fl (6.2-12.0); Monocyte# 0.71 X10^3/uL; Monocyte% 6.2 % (0-10); NRBC Flagged by Analyzer 0 % (0-5); Neutrophil # 9.76 X10^3/uL (2.7-7.7); Neutrophil % 85.3 % (47-70); Platelet Count 262 K/mm3 (150-450); RBC Distribution Width CV 14.3 % (11.6-14.6); RBC Distribution Width SD 52.9 fl (35.1-43.9); White Blood Count 11.4 K/mm3 (4.4-11.0)
[2025-04-21 06:03] LABS: Bedside Glucose 136 mg/dL (74-106)
[2025-04-21 06:30] LABS: Anion Gap 12 (5-15); BUN 14 mg/dL (4-19); BUN/Creat Ratio 24.6 RATIO (10-20); Calcium,Total 9.6 mg/dL (7.6-11.0); Carbon Dioxide 23.8 mmol/L (21.0-32.0); Chloride 100 mmol/L (98-108); Creatinine, Serum 0.55 mg/dL (0.70-1.20); EST Glomerular Filtration Rate 113 (>60); Estimated Creatinine Clearance 129.07 ml/min (50-250); Glucose 139 mg/dL (70-99); Sodium Level 136 mmol/L (133-145)
[2025-04-21 07:09] VITALS: O2SAT 97
[2025-04-21 07:56] VITALS: BP 134/78; PULSE 82; RESP 17; TEMP 36.3; O2SAT 94
[2025-04-21] MEDS: metFORMIN HCl 1,000 MG Tablet 1000 MG PO ×2 (08:06→16:30)
[2025-04-21] MEDS: predniSONE 10 MG Tablet PO (08:06)
[2025-04-21] MEDS: Gabapentin 300 MG Capsule PO ×2 (08:06→11:22)
[2025-04-21] MEDS: 0.9% Saline Lock 10 ML Syringe IV (08:06)
[2025-04-21] MEDS: Enoxaparin 40 MG/0.4 ML Syringe SC (08:06)
[2025-04-21] MEDS: Menthol/Lanolin/Calamine/Znox 113 GM Tube 1 APPLIC TOPICAL ×2 (08:06→21:01)
[2025-04-21] MEDS: Nystatin Powder 15gm Bottle 1 APPLIC TOPICAL ×2 (08:07→21:03)
[2025-04-21 09:00] VITALS: O2SAT 96
[2025-04-21] MEDS: Ondansetron 8 MG Tablet PO ×2 (10:08→17:52)
[2025-04-21 10:26] VITALS: O2SAT 96
[2025-04-21] MEDS: Glimepiride 1 MG Tablet PO (11:17)
[2025-04-21] MEDS: DULoxetine Hcl 60 MG Capsule PO (11:17)
[2025-04-21] MEDS: Doxycycline 100 MG CAPSULE PO ×2 (11:18→21:01)
[2025-04-21] MEDS: Umeclidinium Bromide Inhaler 1 PUFF INHALATION (11:18)
[2025-04-21] MEDS: Fluticasone/Salmeterol 232-14 Inhaler 1 PUFF INHALATION ×2 (11:18→21:02)
--- NOTE | 2025-04-21 11:18 | PCM.PN.DRR ---
Documented by User: Sp Fitzgerald 04/21/25 11:41 TCU RX Drug Regimen Review Subjective/Objective Subjective/Objective Subjective: TCU admission note. 59 year old male with below past medical history significant for squamous cell lung cancer, hospitalized for falls, encephalopathy 2/2 pneumonia, uti, complicated by acute respiratory failure with hypoxia, gastroenteritis, hypomagnesemia, transaminitis 2/2 chemotherapy, admitted to TCU with debility, here for rehabilitation, strengthening, prior to discharge home with significant other. Objective: Allergies No Known Allergies Allergy (Verified 04/14/25 18:21) Current Medications Generic Name Dose Route Start Last Admin Trade Name Freq PRN Reason Stop Dose Admin Acetaminophen 1,000 mg 04/20/25 19:23 Acetaminophen 500 Mg Tablet PO Q6H PRN PRN Pain Score 1-3 Albuterol Sulfate 2 puff 04/20/25 16:30 Albuterol Ih (6.7 Gm) 1 Puff Inhaler INHALATION Q4H PRN SHORTNESS OF BREATH/WHEEZING Bupropion HCl 150 mg 04/20/25 22:00 04/20/25 21:45 Bupropion (Xl) 150 Mg Tablet.Xl PO 150 mg BID SHERYL Administration Calamine/Phenol 1 applic 04/20/25 22:00 04/21/25 08:06 Menthol/Lanolin/Calamine/Znox 113 Gm Tube TOPICAL 1 applic BID SHERYL Administration Protocol Cefdinir 300 mg 04/20/25 22:00 04/20/25 21:44 Cefdinir 300 Mg Capsule PO 04/24/25 23:59 300 mg BID SHERYL Administration Doxycycline Monohydrate 100 mg 04/20/25 22:00 04/20/25 21:44 Doxycycline 100 Mg Capsule PO 04/24/25 23:59 100 mg BID SHERYL Administration Duloxetine HCl 60 mg 04/21/25 10:00 Duloxetine Hcl 60 Mg Capsule PO DAILY [facility] Enoxaparin Sodium 40 mg 04/21/25 06:00 04/21/25 08:06 Enoxaparin 40 Mg/0.4 Ml Syringe SC 40 mg DAILY@0600 SHERYL Administration Gabapentin 300 mg 04/21/25 08:00 04/21/25 08:06 Gabapentin 300 Mg Capsule PO 300 mg BID@0800,1200 SHERYL Administration Glimepiride 1 mg 04/21/25 10:00 Glimepiride 1 Mg Tablet PO DAILY SHERYL Magnesium Citrate 300 ml 04/20/25 19:30 Magnesium Citrate 300 Ml PO DAILY PRN PRN Constipation Metformin HCl 1,000 mg 04/20/25 17:00 04/21/25 08:06 Metformin Hcl 1,000 Mg Tablet PO 1,000 mg BIDCM SHERYL Administration Nystatin 1 applic 04/20/25 22:00 04/21/25 08:07 Nystatin Powder 15gm Bottle TOPICAL 1 applic BID SHERYL Administration Protocol Olanzapine 5 mg 04/21/25 10:00 Olanzapine 5 Mg/Tab Tab.Rapdis PO DAILY SHERYL Ondansetron HCl 8 mg 04/20/25 16:31 04/21/25 10:08 Ondansetron 8 Mg Tablet PO 8 mg Q8H PRN PRN Administration nausea Oxycodone HCl 20 mg 04/20/25 22:00 04/20/25 21:43 Oxycodone Hcl Cr 10 Mg Tablet PO 20 mg BID SHERYL Administration Oxycodone HCl 10 mg 04/20/25 16:32 Oxycodone 5 Mg Tablet PO Q6H PRN Pain Score 4-10 or Pre PT/OT Polyethylene Glycol 17 gm 04/21/25 10:00 Polyethylene Glycol 3350 17 Gm Packet PO DAILY SHERYL Prednisone 10 mg 04/21/25 08:00 04/21/25 08:06 [facility] Prochlorperazine Maleate 10 mg 04/20/25 16:30 Prochlorperazine 5 Mg Tablet PO 05/04/25 16:31 Q6H PRN nausea and vomiting Fluticasone/Salmeterol 1 puff 04/20/25 22:00 04/20/25 21:43 Fluticasone/Salmeterol 232-14 Inhaler INHALATION 1 puff Q12 SHERYL Administration Senna/Docusate Sodium 2 tablet 04/20/25 22:00 04/20/25 21:45 Senna/Docusate Sodium 1 Tablet PO 2 tablet BID [facility] Administration Sodium Chloride 10 - 40 ml 04/20/25 15:43 04/21/25 08:06 0.9% Saline Lock 10 Ml Syringe IV 10 ml UD PRN Administration SALINE FLUSH Tuberculin PPD 0.1 ml 04/28/25 10:00 Tuberculin,Purif.Prot.Deriv. 50 Tu/Ml Vial ID 04/28/25 10:01 X1 ONE Umeclidinium [place] 1 puff 04/21/25 10:00 Umeclidinium [place] Inhaler INHALATION DAILY [facility] Problem List Tobacco abuse (Acute) Coronary artery disease (Acute) Nausea (Acute) Diabetes mellitus (Acute) Depression (Acute) Neuropathic pain (Acute) COPD (chronic obstructive pulmonary disease) (Chronic) Squamous cell lung cancer (Acute) Transaminitis (Acute) Hypomagnesemia (Acute) Gastroenteritis (Acute) Urinary tract infection (Acute) Encephalopathy (Acute) Multiple falls (Acute) Debility (Acute) Pneumonia (Acute) Alcohol abuse (Chronic) Mantle cell lymphoma (Chronic 03/2021) Vital Signs Temp Pulse Resp BP Pulse Ox O2 Del Method O2 Flow Rate 97.4 F L 82 17 134/78 H 96 Nasal Cannula 2 04/21/25 07:56 04/21/25 07:56 04/21/25 07:56 04/21/25 07:56 04/21/25 10:26 04/21/25 07:56 04/21/25 10:26 Oxygen Flow Rate (L/min) 2 Oxygen Delivery Method Nasal Cannula Weight: 64.7 kg Body Mass Index (BMI) 20.5 Sodium 136 mmol/L (133-145) 04/21/25 05:25 Potassium 4.0 mmol/L (3.3-5.1) 04/21/25 05:25 Chloride 100 mmol/L (98-108) 04/21/25 05:25 Carbon Dioxide 23.8 mmol/L (21.0-32.0) 04/21/25 05:25 Anion Gap 12 (5-15) 04/21/25 05:25 BUN 14 mg/dL (4-19) 04/21/25 05:25 Creatinine 0.55 mg/dL (0.70-1.20) L 04/21/25 05:25 Est GFR (MDRD) Non-Af 113 (>60) 04/21/25 05:25 BUN/Creatinine Ratio 24.6 RATIO (10-20) H 04/21/25 05:25 Glucose 139 mg/dL (70-99) H 04/21/25 05:25 Assessment/Plan: 1. Pain: acetaminophen 1000 mg PO QH PRN pain 1-3, oxycodone 10 mg PO Q6H PRN pain 4-10, oxycodone ER 20 mg PO BID. The patient has not required any PRN doses of acetaminophen or oxycodone so far this admission. Please continue to monitor pain levels, LFTs (AST/ALT = 70/44 U/L on 04/19/25), PRN medication usage, for constipation, respiratory depression, dizziness/drowsiness, and for syncope/ataxia/falls. 2. Bowel: polyethylene glycol 17 grams Po daily, senna/docusate 2 tablets PO BID, magnesium citrate 300 mL PO daily PRN constipation. The patient has not required any PRN doses of magnesium citrate so far this admission and the patient's last bowel movement was documented on 04/20/25. Please continue to monitor for bowel movements, PRN medication usage, constipation and diarrhea. 3. DVT prophylaxis. Enoxaparin 40 mg SC daily. Please continue to monitor for s/s of a DVT such as pain/erythema/swelling in an extremity, renal function (serum creatinine = 0.55 mg/dL with creatinine clearance ~ 129 mL/min on 04/21/25), hemoglobin levels (Hgb = 10.9 g/dL on 04/21/25), platelet counts (Plt = 262 K/mm3 on 04/21/25), and for s/s of bleeding/excessive bruising. 4. Pneumonia/UTI: cefdinir 300 mg PO BID through 04/24/25, doxycycline 100 mg PO BID through 04/24/24. Please continue to monitor for s/s of infection such as shortness of breath, chest pain, dysuria, frequency, urgency, temperatures (T = 97.4 F on 04/21/25), for chills, WBC counts (WBC = 11.4 K/mm3 on 04/21/25), renal function (serum creatinine = 0.55 mg/dL with creatinine clearance ~ 129 mL/min on 04/21/25), for photosensitivity, and diarrhea. 5. Diabetic polyneuropathy: gabapentin 300 mg PO BID. Please continue to monitor for nerve pain, renal function (serum creatinine = 0.55 mg/dL with creatinine clearance ~ 129 mL/min on 04/21/25), drowsiness/dizziness, and for syncope/ataxia/falls as well as for lower extremity edema. 6. COPD: fluticasone/salmeterol 232-14 1 puff inhalation BID, umeclidinium bromide 1 puff inhaled daily, albuterol 2 puffs Q4H PRN shortness of breath, prednisone 10 mg PO daily. The patient has not required any PRN doses of albuterol so far this admission. Please continue to monitor for s/s of a COPD exacerbation such as increased shortness of breath, cough, and sputum production, for oral thrush (please rinse mouth after fluticasone/salmeterol administration), for insomnia, blood pressures (recent range = 119-138/73-92 mmHg), blood glucose levels (recent range = 104-265 mg/dL), and for photosensitivity. 7. Diabetes Mellitus II: glimepiride 1 mg PO daily, metformin 1000 mg PO BID with meals. Please continue to monitor BG levels (recent range = 104-265 mg/dL), hemoglobin A1C levels (A1C = 6.5% on 04/14/25), renal function (serum creatinine = 0.55 mg/dL with creatinine clearance ~ 129 mL/min and eGFR = 113 mL/min on 04/21/25), for s/s of hypo/hyperglycemia, for GI distress with metformin administration, and vitamin B12 levels (B12 = 1648 pg/mL on 04/14/25). 8. Nausea: ondansetron 8 mg PO Q8H PRN nausea, prochlorperazine 10 mg PO Q6H PRN nausea and vomiting. The patient has required 1 dose of PRN ondansetron for nausea so far this admission. Please continue to monitor for nausea/vomiting and for PRN medication usage. 9. Skin irritation/tinea corporis: nystatin powder topically BID, calmoseptine 1 application topically BID. Please continue to monitor for resolution of tinea corporis and for skin irritation. Assessment/Plan for indications treated with psychotropic medications: 1. Depression: bupropion XL 150 mg PO BID, duloxetine 60 mg PO daily, olanzapine 5 mg PO daily. Please see provider note regarding stable chronic long-term therapy GDR not recommended. Monitor for efficacy including resident symptoms, behaviors and indications of distress. Monitor for depression and SI. Monitor for tolerability including mental status, cognition, excessive sleepiness, withdrawal or decreased participation in activities and decline in physical functioning. Maximize use of nonpharmacologic/behavioral interventions to facilitate dose reduction or discontinuation as appropriate. Please evaluate the appropriateness of GDR unless contraindicated. If appropriate, GDR should be attemted in 2 separate quarters within the first year of use or admission to TCU. If GDR attempted, monitor resident symptoms/behaviors. Monitor for anxiety, agitation and insomnia, seizure activity, nausea, appetite and body weight, headache, suicidal thoughts or behaviors (Boxed Warning). Monitor blood pressure and HR. BP range since admission =128-138/78-80 mmHg; HR range since admission = 75-83 beats/min Medication is renally eliminated, monitor renal function periodically. Scr = 0.88 (04/21/25) Monitor for diarrhea, nausea, appetite/weight loss, anxiety or drowsiness, suicidal thoughts or behaviors (Boxed Warning), symptoms of bleeding, symptoms of serotonin syndrome (including agitation, confusion, hyperreflexia, rigidity/myoclonus, tremor, tachycardia, tachypnea), sodium levels (last Na = 136 mmol/L on 04/21/25). Monitor for orthostatic hypotension, including postural dizziness, syncope or falls. Check orthostatic vital signs if suspicion of orthostasis. [place] for hepatotoxicity (abdominal pain, nausea, jaundice, dark urine, AST/ALT as clinically indicated). AST/ALT = 70/44 on 04/21/25 Medical chart and medication regimen reviewed. The following medication irregularities or issues were identified: NA Date Date of Note: 04/21/25 Documented by User: Dr. Ac Devries MD 04/22/25 07:15 TCU RX Drug Regimen Review Provider Comments Provider responsibility Provider Comments to Recommendations by Pharmacy Agree
[2025-04-21] MEDS: oxyCODONE HCl Cr 10 MG Tablet 20 MG PO ×2 (11:20→21:07)
[2025-04-21] MEDS: Polyethylene Glycol 3350 17 GM PACKET PO (11:20)
[2025-04-21] MEDS: Cefdinir 300 MG Capsule PO ×2 (11:20→21:04)
[2025-04-21] MEDS: Senna/Docusate Sodium 1 Tablet 2 TABLET PO ×2 (11:20→21:04)
[2025-04-21] MEDS: OLANZapine 5 MG/TAB TAB.RAPDIS PO (11:21)
[2025-04-21] MEDS: Tuberculin,Purif.prot.deriv. 50 TU/ML Vial 0.1 ML ID (11:21)
[2025-04-21] MEDS: buPROPion (XL) 150 MG TABLET.XL PO ×2 (11:21→21:04)
[2025-04-21 16:37] LABS: Bedside Glucose 90 mg/dL (74-106)
--- NOTE | 2025-04-21 17:05 | NURSING ---
pt gave permission to speak to Wendi Davalos about anything regarding his care- phone [phone]
--- NOTE | 2025-04-21 21:41 | NURSING ---
Talked with Dr. Devries regarding port in right chest currently being accessed. To keep access for now.
[2025-04-21] MEDS: Ensure Plus High Protein 120 ML LIQUID PO (23:46)
[2025-04-22 05:56] LABS: Absolute Lymphocyte Count 0.64 X10^3/uL (0.83-4.51); Absolute Neutrophil Count 7.4 X10^3/uL (2.0-7.7); Basophil% 1.1 % (0-1); Eosinophil# 0.39 X10^3/uL; Eosinophils% 4.2 % (0-5); Hematocrit 34.5 % (40-54); Hemoglobin 11.2 g/dL (13.0-16.5); Lymphocyte # 0.64 X10^3/ul (0.83-4.51); Lymphocyte % 6.9 % (19-41); Mean Corp Hgb Conc 32.5 g/dL (32-36); Mean Corpuscular Hgb 33.8 pg (27.0-32.0); Mean Corpuscular Volume 104.2 fL (80-94); Mean Platelet Vol. 10.8 fl (6.2-12.0); Monocyte# 0.69 X10^3/uL; Monocyte% 7.5 % (0-10); NRBC Flagged by Analyzer 0 % (0-5); Neutrophil # 7.37 X10^3/uL (2.7-7.7); Neutrophil % 79.9 % (47-70); Platelet Count 263 K/mm3 (150-450); RBC Distribution Width CV 14.4 % (11.6-14.6); RBC Distribution Width SD 54.7 fl (35.1-43.9); Red Blood Count 3.31 M/mm3 (4.6-6.2); White Blood Count 9.2 K/mm3 (4.4-11.0)
[2025-04-22 06:45] LABS: Anion Gap 12 (5-15); BUN 19 mg/dL (4-19); BUN/Creat Ratio 33.8 RATIO (10-20); Calcium,Total 9.9 mg/dL (7.6-11.0); Carbon Dioxide 24.8 mmol/L (21.0-32.0); Chloride 101 mmol/L (98-108); Creatinine, Serum 0.55 mg/dL (0.70-1.20); EST Glomerular Filtration Rate 113 (>60); Estimated Creatinine Clearance 129.07 ml/min (50-250); Glucose 72 mg/dL (70-99); Potassium 4.3 mmol/L (3.3-5.1); Sodium Level 138 mmol/L (133-145)
[2025-04-22] MEDS: Enoxaparin 40 MG/0.4 ML Syringe SC (06:49)
[2025-04-22 06:50] LABS: Bedside Glucose 82 mg/dL (74-106)
[2025-04-22 07:20] VITALS: O2SAT 94
--- NOTE | 2025-04-22 07:20 | CPS ---
found pt on RA at this time. Pt sat was 94%. told RN that this RT kept pt on RA
[2025-04-22] MEDS: Ondansetron 8 MG Tablet PO (08:05)
[2025-04-22 08:08] VITALS: PULSE 89; RESP 18; TEMP 36.1; O2SAT 89
[2025-04-22 10:00] VITALS: PULSE 68; RESP 16; O2SAT 94
[2025-04-22] MEDS: proCHLORPERazine 5 MG Tablet 10 MG PO (10:26)
--- NOTE | 2025-04-22 12:00 | CASEMGMT ---
Social Work SW presented to pt's room to complete initial assessment. Introduced self and role. Nursing requested this worker's assistance with admission paperwork, to determine pt's contacts and who can sign paperwork. Pt introduced friend at bedside and alliance party listed on face sheet, Wendi Davalos. Pt gave permission to friend to sign documents. Pt denied having any advance directives completed. SW offered to complete during stay, if elected. Pt verified code status as full code. Pt was vomiting and SW to return later to complete full assessment. Nursing notified and contacts updated. Sondra Carson CATERPILLAR DRIVER GLASS [employer]IB[employer]ON MACHINE OPERATOR ASSISTANT
--- NOTE | 2025-04-22 12:19 | NURSING ---
Freight Traffic Consultant Note; Activity Asset: Ghassan Langford is independent in his choice of daily activities. He has stated at this time her prefers in room activities, not feeling the best. He was given word puzzles, watches tv, reads and welcomes the orthopedic nurse or therapy dog. His friend will visits when able. Staff has offered magazines and he stated not at this time, Will remind him of weekly activities and respect his right to say no.
[2025-04-22] MEDS: Ensure Plus High Protein 120 ML LIQUID PO (12:36)
[2025-04-22] MEDS: oxyCODONE HCl Cr 10 MG Tablet 20 MG PO (12:37)
--- NOTE | 2025-04-22 13:45 | NURSING ---
Offered covid vaccine, VIS provided. Resident declines.
--- NOTE | 2025-04-22 14:11 | NURSING ---
Updated Dr. Devries on resident's ongoing nausea after zofran and compazine. Verbal order for KUB and phenergan.
--- NOTE | 2025-04-22 14:15 | NURSING ---
notified dr pena pt nauseous with no relief from zofran- compazine given- some improvement- pt took pain meds and refused all other medications due to nausea- pt still nauseous- requested phenergan or something else for nausea- dr pena gave orders for phenergan and KUB
[2025-04-22] MEDS: proMETHazine 25 MG Tablet PO (14:25)
--- NOTE | 2025-04-22 15:10 | CASEMGMT ---
Social Work SW returned to pt's room. Pt's vomiting had stopped enough for this worker to continue with additional assessment questions. however, pt became nauseous and agitated and did not want to finish assessment. SW offered to return at a later date. Sondra Carson NICK SETTER BUSINESS MANAGEMENT CONSULTANT
--- NOTE | 2025-04-22 15:20 | RAD_ITS ---
PROCEDURE: ABDOMEN SINGLE VIEW 04/22/2025 REASON FOR EXAM: NAUSEA TECHNIQUE: Two-view supine abdomen. COMPARISON: Steam Powerplant Supervisor from the CT examination of 04/14/2025. FINDINGS: Bowel gas: Bowel gas pattern is normal. No evidence of bowel obstruction. Calcifications: No suspicious calcifications. Bones: There are degenerative changes of the spine. Other: None. RAD/Abdomen Single View IMPRESSION: Unremarkable bowel-gas pattern Reading Location: [id number]
--- NOTE | 2025-04-22 17:00 | NURSING ---
NOTIFIED DR CLARKE PT STILL HAS NAUSEA/VOMMITING- ORDER GIVEN FOR IV REGLAN QACHS FOR 5 DAYS
[2025-04-22 17:08] LABS: Bedside Glucose 130 mg/dL (74-106)
[2025-04-22] MEDS: Metoclopramide 10 MG/2 ML Vial IV ×2 (18:25→22:35)
[2025-04-22] MEDS: 0.9% Saline Lock 10 ML Syringe IV ×2 (18:25→22:37)
[2025-04-22] MEDS: Nystatin Powder 15gm Bottle 1 APPLIC TOPICAL (21:44)
[2025-04-22] MEDS: Menthol/Lanolin/Calamine/Znox 113 GM Tube 1 APPLIC TOPICAL (21:45)
--- NOTE | 2025-04-23 04:23 | NURSING ---
PATIENT C/O N/V/D THROUGHOUT SHIFT. THIS NURSE CONTINUED TO KEEP PATIENT COMFORTABLE, BY REPOSITIONING, ADJUSTING ROOM TEMPERATURE AND OFFERING PHARMACOLOGICAL THERAPY. PATIENT HAS REFUSED ALL ORAL MEDICATION. COMMUNICATION NOTE LEFT FOR . NOTIFIED RN. WILL CONTINUE TO MONITOR.
[2025-04-23] MEDS: Ondansetron 8 MG Tablet PO ×3 (04:46→21:16)
[2025-04-23] MEDS: 0.9% Saline Lock 10 ML Syringe IV ×3 (06:27→21:14)
[2025-04-23] MEDS: Metoclopramide 10 MG/2 ML Vial IV ×4 (06:28→21:16)
[2025-04-23] MEDS: Enoxaparin 40 MG/0.4 ML Syringe SC (06:28)
[2025-04-23 06:31] LABS: Bedside Glucose 151 mg/dL (74-106)
[2025-04-23 07:29] VITALS: PULSE 70; RESP 16; O2SAT 88
[2025-04-23 08:45] VITALS: BP 127/75; PULSE 90; RESP 16; TEMP 36.7; O2SAT 92
[2025-04-23] MEDS: Umeclidinium Bromide Inhaler 1 PUFF INHALATION (08:51)
[2025-04-23] MEDS: Menthol/Lanolin/Calamine/Znox 113 GM Tube 1 APPLIC TOPICAL ×2 (08:52→21:16)
[2025-04-23] MEDS: Fluticasone/Salmeterol 232-14 Inhaler 1 PUFF INHALATION (08:52)
[2025-04-23] MEDS: Nystatin Powder 15gm Bottle 1 APPLIC TOPICAL ×2 (08:52→21:17)
[2025-04-23] MEDS: metFORMIN HCl 1,000 MG Tablet 1000 MG PO ×2 (08:53→18:20)
[2025-04-23] MEDS: Doxycycline 100 MG CAPSULE PO (08:53)
[2025-04-23] MEDS: predniSONE 10 MG Tablet PO (08:53)
[2025-04-23] MEDS: DULoxetine Hcl 60 MG Capsule PO (08:53)
[2025-04-23] MEDS: Glimepiride 1 MG Tablet PO (08:53)
[2025-04-23] MEDS: Cefdinir 300 MG Capsule PO (08:54)
[2025-04-23] MEDS: OLANZapine 5 MG/TAB TAB.RAPDIS PO (08:55)
[2025-04-23] MEDS: buPROPion (XL) 150 MG TABLET.XL PO (08:55)
[2025-04-23] MEDS: Dext 5%-0.45% NS 1,000 ML 75 ML IV (11:06)
[2025-04-23] MEDS: Gabapentin 300 MG Capsule PO (11:55)
[2025-04-23 17:17] LABS: Bedside Glucose 164 mg/dL (74-106)
[2025-04-23 17:28] VITALS: O2SAT 94
[2025-04-23] MEDS: Ensure Plus High Protein 120 ML LIQUID PO (18:20)
[2025-04-24] MEDS: Dext 5%-0.45% NS 1,000 ML 75 ML IV ×2 (00:10→12:54)
[2025-04-24] MEDS: 0.9% Saline Lock 10 ML Syringe IV ×3 (06:13→23:07)
[2025-04-24] MEDS: Metoclopramide 10 MG/2 ML Vial IV ×4 (06:13→23:01)
[2025-04-24] MEDS: Enoxaparin 40 MG/0.4 ML Syringe SC (06:13)
[2025-04-24 06:51] LABS: Bedside Glucose 184 mg/dL (74-106)
[2025-04-24 08:03] VITALS: BP 130/73; PULSE 80; RESP 16; TEMP 37.2; O2SAT 95
[2025-04-24] MEDS: oxyCODONE HCl Cr 10 MG Tablet 20 MG PO ×2 (08:09→22:18)
[2025-04-24] MEDS: Gabapentin 300 MG Capsule PO ×2 (08:09→12:37)
[2025-04-24] MEDS: Senna/Docusate Sodium 1 Tablet 2 TABLET PO (08:09)
[2025-04-24] MEDS: Glimepiride 1 MG Tablet PO (08:10)
[2025-04-24] MEDS: buPROPion (XL) 150 MG TABLET.XL PO ×2 (08:10→22:18)
[2025-04-24] MEDS: Cefdinir 300 MG Capsule PO ×2 (08:10→22:18)
[2025-04-24] MEDS: predniSONE 10 MG Tablet PO (08:10)
[2025-04-24] MEDS: OLANZapine 5 MG/TAB TAB.RAPDIS PO (08:10)
[2025-04-24] MEDS: DULoxetine Hcl 60 MG Capsule PO (08:10)
[2025-04-24] MEDS: metFORMIN HCl 1,000 MG Tablet 1000 MG PO ×2 (08:10→16:43)
[2025-04-24] MEDS: Polyethylene Glycol 3350 17 GM PACKET PO (08:11)
[2025-04-24] MEDS: Doxycycline 100 MG CAPSULE PO ×2 (08:11→22:18)
[2025-04-24] MEDS: Umeclidinium Bromide Inhaler 1 PUFF INHALATION (08:11)
[2025-04-24] MEDS: Fluticasone/Salmeterol 232-14 Inhaler 1 PUFF INHALATION ×2 (08:11→22:16)
[2025-04-24] MEDS: Menthol/Lanolin/Calamine/Znox 113 GM Tube 1 APPLIC TOPICAL ×2 (08:12→22:16)
[2025-04-24] MEDS: Nystatin Powder 15gm Bottle 1 APPLIC TOPICAL ×2 (08:12→22:16)
--- NOTE | 2025-04-24 09:03 | CASEMGMT ---
Social Work IDT met with patient and friend, Wendi, for care plan meeting. Discussed patient's progress in PT/OT/ST/SN. Discussed patient's significant nausea, receiving several meds to assist. PROJ MGR explained pt requires 50% assistance with cognitive tasks. PROJ MGR will also evaluate for swallowing. PT/OT reported pt is needing significant assistance with physical tasks and not having functional walking. Educated to [facility] insurance with NRD / and continued stay is not guaranteed with each review; 3-day notice is required. Provided pt/family with written communication of insurance process and copay coverage during stay. IDT expressed concerns with pt returning home alone as pt is not independent in any areas at this time. SW also expressed concern with pt's condition of his home and being safe, especially given increased medical needs. SW offered to provide resources for housing assistance, if pt is interested at any time. SW inquired about pursuing chemo treatment after DC. Pt unsure if he will continue - he plans to speak with his doctors before making a decision. WINSTON broached alf placement and educated to OOP cost or Medicaid eligibility. Explained caregivers in the home are also OOP cost. Friend stated she is able to have pt stay at her house. SW encouraged friend to attend therapy training to ensure she can care for pt's needs. Friend agreed. SW obtained friend's address and entered into chart. WINSTON educated to skilled HHC and DME that can be coordinated at [place], if pt returns to the community. WINSTON offered ongoing assistance for DC planning and provided friend with SW contact information. Will continue to follow. Sondra Carson MSW OPERATIONS/DISPATCH
[2025-04-24 09:21] VITALS: O2SAT 95
[2025-04-24] MEDS: Ensure Plus High Protein 120 ML LIQUID PO ×2 (11:18→16:48)
[2025-04-24] MEDS: Ondansetron 8 MG Tablet PO ×2 (12:58→22:18)
[2025-04-24 16:36] VITALS: BMI 19.7
[2025-04-24 16:43] LABS: Bedside Glucose 161 mg/dL (74-106)
[2025-04-24 16:55] VITALS: O2SAT 95
[2025-04-25] MEDS: Dext 5%-0.45% NS 1,000 ML 75 ML IV ×2 (02:27→17:13)
[2025-04-25] MEDS: Ensure Plus High Protein 120 ML LIQUID PO ×3 (06:05→17:07)
[2025-04-25] MEDS: Enoxaparin 40 MG/0.4 ML Syringe SC (06:06)
[2025-04-25] MEDS: Ondansetron 8 MG Tablet PO ×3 (06:07→21:30)
[2025-04-25 06:37] LABS: Bedside Glucose 85 mg/dL (74-106)
--- NOTE | 2025-04-25 06:50 | NURSING ---
Patient accidentally disconnects IV tubing from chest port, no blood return observed. Chest port de-accessed per policy, DSD applied to site and secured with tape, fluids paused. Material management to send new GAYLE needle for chest port re-access, oncoming shift notified of need for Reglan administration per order and need for new chest port placement when arrives from material management. No distress observed at this time. Call light in reach.
[2025-04-25] MEDS: Metoclopramide 10 MG/2 ML Vial IV ×4 (08:16→21:29)
[2025-04-25] MEDS: OLANZapine 5 MG/TAB TAB.RAPDIS PO (08:23)
[2025-04-25] MEDS: Glimepiride 1 MG Tablet PO (08:23)
[2025-04-25] MEDS: buPROPion (XL) 150 MG TABLET.XL PO ×2 (08:23→21:29)
[2025-04-25] MEDS: DULoxetine Hcl 60 MG Capsule PO (08:24)
[2025-04-25] MEDS: metFORMIN HCl 1,000 MG Tablet 1000 MG PO ×2 (08:24→17:07)
[2025-04-25] MEDS: predniSONE 10 MG Tablet PO (08:24)
[2025-04-25] MEDS: Polyethylene Glycol 3350 17 GM PACKET PO (08:25)
[2025-04-25] MEDS: Umeclidinium Bromide Inhaler 1 PUFF INHALATION (08:25)
[2025-04-25] MEDS: Nystatin Powder 15gm Bottle 1 APPLIC TOPICAL ×2 (08:25→21:38)
[2025-04-25] MEDS: Fluticasone/Salmeterol 232-14 Inhaler 1 PUFF INHALATION ×2 (08:26→21:30)
[2025-04-25] MEDS: Menthol/Lanolin/Calamine/Znox 113 GM Tube 1 APPLIC TOPICAL ×2 (08:26→21:38)
[2025-04-25] MEDS: Gabapentin 300 MG Capsule PO ×2 (08:29→11:07)
[2025-04-25] MEDS: Senna/Docusate Sodium 1 Tablet 2 TABLET PO (08:30)
[2025-04-25 08:35] VITALS: BP 129/78; PULSE 81; RESP 16; TEMP 36.6; O2SAT 98
[2025-04-25 10:00] VITALS: O2SAT 98
--- NOTE | 2025-04-25 11:00 | MDS.RN ---
Pain assessment for MDS complete.
[2025-04-25] MEDS: oxyCODONE HCl Cr 10 MG Tablet 20 MG PO ×2 (11:06→21:28)
[2025-04-25 13:31] VITALS: O2SAT 91
--- NOTE | 2025-04-25 16:21 | CHAPLAIN ---
Type of Pastoral Visit _x__ Initial Visit ___ Follow-up Visit ___ On-call Visit ___ General Patient Visit ___ Spiritual Assessment ___ Family Conference ___ Bereavement ___ Rapid Response ___ Code Blue ___ Other (describe below) Pastoral Care Referral From _x__ Patient ___ Family ___ Nurse ___ Physician ___ Ux Developer ___ Hedge Fund Manager ___ Other (describe below) Sacrament/Intervention ___ Active listening ___ Anointing ___ Amish ___ Bereavement ___ Communion ___ Jud exploration ___ ___ Life review ___ Prayer ___ Reconciliation ___ Sacrament of Sick _x__ Supportive presence ___ Wedding ___ Other (describe below) Pastoral Comments patient is sitting in his chair with his head down when this inker and opaquer enters the room; this inker and opaquer introduces self and role; pt says that he is not feeling well nor up to talking right now; pt is reminded of how to call for help and that he will be given time to rest now; offer of future visit is given to him
[2025-04-25 16:25] LABS: Bedside Glucose 126 mg/dL (74-106)
[2025-04-26] MEDS: LORazepam 0.5 MG Tablet PO (01:23)
[2025-04-26] MEDS: Enoxaparin 40 MG/0.4 ML Syringe SC (05:45)
[2025-04-26] MEDS: 0.9% Saline Lock 10 ML Syringe IV (05:46)
[2025-04-26] MEDS: Dext 5%-0.45% NS 1,000 ML 75 ML IV ×2 (05:49→19:12)
[2025-04-26] MEDS: Metoclopramide 10 MG/2 ML Vial IV ×4 (06:00→21:17)
[2025-04-26 06:21] LABS: Bedside Glucose 108 mg/dL (74-106)
[2025-04-26] MEDS: Ensure Plus High Protein 120 ML LIQUID PO ×3 (08:52→21:14)
[2025-04-26] MEDS: buPROPion (XL) 150 MG TABLET.XL PO ×2 (08:54→21:16)
[2025-04-26] MEDS: DULoxetine Hcl 60 MG Capsule PO (08:54)
[2025-04-26] MEDS: Glimepiride 1 MG Tablet PO (08:55)
[2025-04-26] MEDS: predniSONE 10 MG Tablet PO (08:55)
[2025-04-26] MEDS: metFORMIN HCl 1,000 MG Tablet 1000 MG PO ×2 (08:55→17:31)
[2025-04-26] MEDS: Gabapentin 300 MG Capsule PO (08:55)
[2025-04-26] MEDS: Nystatin Powder 15gm Bottle 1 APPLIC TOPICAL ×2 (08:57→21:23)
[2025-04-26] MEDS: Menthol/Lanolin/Calamine/Znox 113 GM Tube 1 APPLIC TOPICAL ×2 (08:57→21:23)
[2025-04-26] MEDS: Fluticasone/Salmeterol 232-14 Inhaler 1 PUFF INHALATION ×2 (08:58→21:16)
[2025-04-26] MEDS: Umeclidinium Bromide Inhaler 1 PUFF INHALATION (08:58)
[2025-04-26 09:01] VITALS: BP 144/79; PULSE 81; RESP 18; TEMP 36.4; O2SAT 95
[2025-04-26] MEDS: OLANZapine 5 MG/TAB TAB.RAPDIS PO (10:24)
[2025-04-26] MEDS: oxyCODONE 5 MG Tablet 10 MG PO (13:21)
[2025-04-26] MEDS: Acetaminophen 500 MG Tablet 1000 MG PO (13:21)
[2025-04-26] MEDS: Ondansetron 8 MG Tablet PO ×2 (13:22→21:16)
--- NOTE | 2025-04-26 14:36 | CASEMGMT ---
Social Work SW received update from PROCESSING ARCHIVIST after speaking with pt's friend. Wendi stating pt was living in [place], was told by that that he needed to elect hospice, then came to Wendi's house in [place], asking for help to get a second opinion. Wendi expressed to LEAH that pt is most appropriate for hospice and requested to speak with this worker and Dr. Devries. - SW presented to pt's room, but pt stated Wendi just left. SW attempted to engage in conversation with pt, but when SW entered the room, the pt asked why this was the third time SW was in his room. SW educated this worker has not seen pt yet today. Pt sighed and appreared agitated. SW requested to complete MDS assessment and pt relucntatnly agreed. Though, pt kept his head turned the opposite direction, was very drowsy, very low voice, kept eyes closed. SW redirected pt to look at SW and increase tone of voice, but pt quickly returned to previous state. SW asked if pt was comfortable and pt confirmed. Pt scored 12/15 on BIMS and on PHQ-2 - SW phoned Wendi and offered support and assistance. Wendi reiterated information she shared with LEAH. Wendi stated she feels pt is at end-of-life and unclear what direction to go. WINSTON explained since Dr. Devries is returning from vacation on Tuesday, 04/29, and has been following pt's care, if Dr. Devries (instead of Dr. Rivera who is covering this date) speak with pt and Wendi on Tuesday about prognosis and care. Wendi agreeable and appreciative. Wendi explained she is picking up pt's brother from [place] and bringing him to see the pt tomorrow, per pt's request. Pt wants brother to have his car and be on his bank accounts. WINSTON explained that since pt does not want to complete advanced directives, and does not have financial advance directives, unfortunately, the bank will not approve the brother ot be added to his bank accounts unless the pt presents in person to the bank. Wendi had that understanding as well. WINSTON inquired further about pt's family. Wendi stated pt has 3 siblings - Rolo, who is coming to visit from [place] tomorrow; Camilo, who lives in [place] but in/out of nursing homes d/t medical issues; sister Henna, who lives in [place]. WINSTON requested for Rolo to provide nursing with his contact information, as he is NOK. Wendi agreed. Wendi inquired further about hospice and LOC. Wendi stated she cannot currently care for pt at home. WINSTON agreed and pt would likely need SNF or IPU, if he qualifies. WINSTON explained a SNF is an OOP cost or Medicaid eligible. Friend stated pt already receives food stamps, and cannot pay for a SNF. WINSTON explained a [facility] application can be submitted to determine eligibility and cover cost of SNF. Friend states pt is likely to qualify and she will look for needed documents at his house in [place] while she is there. WINSTON appreciative. SW to leave a SNF list of providers including quality and resource data in pt's room to review. Friend appreciative. - WINSTON collaborated with Clotilde at [facility], who reported. Pt has [facility] [facility] Medicaid and likely receives food stamps through Medicare program. Pt is likely eligible for LTC Medicaid, but an application would need completed. WINSTON to follow up with pt after conversation with Dr. Devries on DC plans. Will continue to follow. Sondra Carson MSW ACCOUNT INSTALLATION SPECIALIST
[2025-04-26 16:22] VITALS: O2SAT 93
[2025-04-26 16:52] LABS: Bedside Glucose 83 mg/dL (74-106)
[2025-04-26] MEDS: Senna/Docusate Sodium 1 Tablet 2 TABLET PO (21:16)
[2025-04-26] MEDS: oxyCODONE HCl Cr 10 MG Tablet 20 MG PO (21:16)
[2025-04-27] MEDS: proCHLORPERazine 5 MG Tablet 10 MG PO (01:27)
--- NOTE | 2025-04-27 01:32 | NURSING ---
Patient c/o nausea. When this nurse entered room, it was noted that he had vomited to the left side. Compazine administered, patient cleaned up, linens changed. Will continue to monitor.
[2025-04-27] MEDS: Ensure Plus High Protein 120 ML LIQUID PO ×3 (05:15→21:47)
[2025-04-27] MEDS: Enoxaparin 40 MG/0.4 ML Syringe SC (05:16)
[2025-04-27] MEDS: Ondansetron 8 MG Tablet PO ×3 (05:16→21:46)
[2025-04-27] MEDS: Metoclopramide 10 MG/2 ML Vial IV ×4 (06:25→21:34)
[2025-04-27] MEDS: 0.9% Saline Lock 10 ML Syringe IV ×2 (06:35→21:34)
[2025-04-27 06:55] LABS: Bedside Glucose 125 mg/dL (74-106)
[2025-04-27 07:00] VITALS: O2SAT 93
[2025-04-27] MEDS: Glimepiride 1 MG Tablet PO ×2 (08:39→08:41)
[2025-04-27] MEDS: metFORMIN HCl 1,000 MG Tablet 1000 MG PO ×2 (08:39→17:26)
[2025-04-27] MEDS: DULoxetine Hcl 60 MG Capsule PO (08:39)
[2025-04-27] MEDS: Menthol/Lanolin/Calamine/Znox 113 GM Tube 1 APPLIC TOPICAL ×2 (08:43→21:36)
[2025-04-27] MEDS: buPROPion (XL) 150 MG TABLET.XL PO ×2 (08:44→21:46)
[2025-04-27] MEDS: Umeclidinium Bromide Inhaler 1 PUFF INHALATION (08:44)
[2025-04-27] MEDS: Fluticasone/Salmeterol 232-14 Inhaler 1 PUFF INHALATION ×2 (08:45→22:03)
[2025-04-27] MEDS: Nystatin Powder 15gm Bottle 1 APPLIC TOPICAL ×2 (08:45→21:47)
[2025-04-27] MEDS: predniSONE 10 MG Tablet PO (08:46)
[2025-04-27] MEDS: OLANZapine 5 MG/TAB TAB.RAPDIS PO (08:48)
[2025-04-27] MEDS: Gabapentin 300 MG Capsule PO ×2 (09:17→12:19)
[2025-04-27] MEDS: oxyCODONE HCl Cr 10 MG Tablet 20 MG PO ×2 (09:17→21:46)
[2025-04-27] MEDS: Dext 5%-0.45% NS 1,000 ML 75 ML IV ×2 (09:21→23:58)
[2025-04-27 09:30] VITALS: PULSE 91; RESP 16; O2SAT 92
[2025-04-27] MEDS: oxyCODONE 5 MG Tablet 10 MG PO (15:52)
[2025-04-27 16:00] VITALS: BP 133/75; PULSE 91; RESP 18; TEMP 36.6; O2SAT 92
[2025-04-27 17:45] LABS: Bedside Glucose 164 mg/dL (74-106)
[2025-04-27] MEDS: Senna/Docusate Sodium 1 Tablet 2 TABLET PO (21:46)
[2025-04-28 01:10] VITALS: PULSE 80; RESP 18; O2SAT 96
[2025-04-28] MEDS: LORazepam 0.5 MG Tablet PO (04:12)
--- NOTE | 2025-04-28 04:12 | NURSING ---
Observed attempting to self transfer out of bed, agitated at this time AEB furrowed brow, raised voice, grasping castro catheter tubing, states loudly I'm getting out of here! Alert to self, unable to reorient at this time, when attempting to reorient to place, patient yells loudly, I know where I am!. Patient unable to answer correct location at this time. Weakness observed, unable to sit upright on side of bed when attempting to self transfer. Self removes O2 nasal cannula, when attempting to reapply patient yells Get out of here! I don't need that!. 1:1 provided, declines food/fluid/toileting/temperature adjustment. Denies pain.Second nurse and HEAD CAGER present to assist. Poor safety awareness. Patient encouraged not to pull at castro tubing, accepts repositioning at this time. Castro cath patent draining via gravity. PRN Ativan as ordered. EAx2 with bed mobility. Patient verbalizes comfort, states I'm sorry about that. No further agitation at this time. Lights lowered, television on per pt. preference. Denies requests. No distress observed or reported. Call light in reach. Accepts O2 via nc.
--- NOTE | 2025-04-28 04:13 | NURSING ---
Personal items within reach, bed in lowest position, call light within reach, personal alarm in place per order.
[2025-04-28 06:22] LABS: Bedside Glucose 97 mg/dL (74-106)
[2025-04-28] MEDS: Ondansetron 8 MG Tablet PO ×3 (06:40→21:50)
[2025-04-28] MEDS: Enoxaparin 40 MG/0.4 ML Syringe SC (06:41)
[2025-04-28] MEDS: Ensure Plus High Protein 120 ML LIQUID PO ×4 (06:41→21:48)
[2025-04-28 08:55] VITALS: BP 136/73; PULSE 94; RESP 18; TEMP 36.2; O2SAT 92
[2025-04-28] MEDS: predniSONE 10 MG Tablet PO (09:01)
[2025-04-28] MEDS: metFORMIN HCl 1,000 MG Tablet 1000 MG PO ×2 (09:01→17:23)
[2025-04-28] MEDS: DULoxetine Hcl 60 MG Capsule PO (09:02)
[2025-04-28] MEDS: OLANZapine 5 MG/TAB TAB.RAPDIS PO (09:03)
[2025-04-28] MEDS: Senna/Docusate Sodium 1 Tablet 2 TABLET PO ×2 (09:03→21:48)
[2025-04-28] MEDS: buPROPion (XL) 150 MG TABLET.XL PO ×2 (09:03→21:50)
[2025-04-28] MEDS: Fluticasone/Salmeterol 232-14 Inhaler 1 PUFF INHALATION ×2 (09:04→21:48)
[2025-04-28] MEDS: Nystatin Powder 15gm Bottle 1 APPLIC TOPICAL ×2 (09:04→21:48)
[2025-04-28] MEDS: Umeclidinium Bromide Inhaler 1 PUFF INHALATION (09:04)
[2025-04-28] MEDS: Menthol/Lanolin/Calamine/Znox 113 GM Tube 1 APPLIC TOPICAL ×2 (09:05→21:49)
[2025-04-28] MEDS: oxyCODONE HCl Cr 10 MG Tablet 20 MG PO ×2 (09:07→21:47)
[2025-04-28] MEDS: Gabapentin 300 MG Capsule PO ×2 (09:08→12:06)
[2025-04-28] MEDS: Tuberculin,Purif.prot.deriv. 50 TU/ML Vial 0.1 ML ID (10:40)
[2025-04-28] MEDS: Dext 5%-0.45% NS 1,000 ML 75 ML IV (13:26)
--- NOTE | 2025-04-28 17:32 | NURSING ---
entered room to administer evening medication, pt yelling for Cecilia. confused, pt thought she was sitting next to him and he was unaware of where he was. reoriented pt. pt noted to have removed his oxygen. reapplied to nares, then oxygen level climbed to 92% and pt confusion went away. HOB elevated, pt repositioned onto back for supper. call light in reach. bed alarm intact.
[2025-04-28 17:43] LABS: Bedside Glucose 142 mg/dL (74-106)
[2025-04-28] MEDS: oxyCODONE 5 MG Tablet 10 MG PO (18:44)
--- NOTE | 2025-04-28 18:51 | NURSING ---
Wendi, pt friend here and called out for pt to have pain medication. PRN oxyir 10mg given, pt c/o pain but unable to express location. pt able to swallow medication w/out difficulty but within minutes of swallowing medication/water, pt noted to have horizontal nystagmus and then ask Wendi why she is so wet. patient thought Wendi's clothing was wet. Wendi reassured pt that she is dry and it is not raining outside. pt resting in bed, HOB elevated. call light in reach. alarm in place.
[2025-04-28 19:08] VITALS: O2SAT 92
--- NOTE | 2025-04-28 19:09 | NURSING ---
pt noted to have palmar erythema, Gucci verified that this started today. Will update night coordinator nurse in report to monitor. Friend stated that they are having a meeting with Dr Devries tomorrow late evening.
[2025-04-29 02:30] VITALS: PULSE 100; RESP 16; O2SAT 93
[2025-04-29] MEDS: Dext 5%-0.45% NS 1,000 ML 75 ML IV (02:53)
[2025-04-29 03:00] VITALS: RESP 18; O2SAT 92
[2025-04-29 05:45] LABS: Absolute Lymphocyte Count 0.54 X10^3/uL (0.83-4.51); Absolute Neutrophil Count 12.9 X10^3/uL (2.0-7.7); Basophil# 0.04 X10^3/uL; Basophil% 0.3 % (0-1); Eosinophil# 0.16 X10^3/uL; Eosinophils% 1.1 % (0-5); Hematocrit 33.1 % (40-54); Hemoglobin 10.9 g/dL (13.0-16.5); Lymphocyte # 0.54 X10^3/ul (0.83-4.51); Lymphocyte % 3.7 % (19-41); Mean Corp Hgb Conc 32.9 g/dL (32-36); Mean Corpuscular Hgb 33.1 pg (27.0-32.0); Mean Corpuscular Volume 100.6 fL (80-94); Monocyte# 0.78 X10^3/uL; Monocyte% 5.4 % (0-10); NRBC Flagged by Analyzer 0 % (0-5); Neutrophil # 12.88 X10^3/uL (2.7-7.7); Neutrophil % 88.7 % (47-70); POSITIVE DIFFERENTIAL YES; Platelet Count 243 K/mm3 (150-450); RBC Distribution Width CV 14.6 % (11.6-14.6); RBC Distribution Width SD 53.7 fl (35.1-43.9); Red Blood Count 3.29 M/mm3 (4.6-6.2); White Blood Count 14.5 K/mm3 (4.4-11.0)
[2025-04-29] MEDS: Ondansetron 8 MG Tablet PO (06:07)
[2025-04-29] MEDS: Enoxaparin 40 MG/0.4 ML Syringe SC (06:07)
--- NOTE | 2025-04-29 06:13 | NURSING ---
Confused, alert to self. Weak, lethargic at times. Apparent hallucinations observed at times AEB patient with empty hand in air bringing toward mouth, requesting Buffy, the girl that's with me. Attempt to reorient ineffective. Small Emesis x1, clean clothing and linen provided, repositioned for comfort. RTN Zofran administered as ordered. EAx1-2 with bed mobility. Dumont cath patent draining clear straw colored urine via gravity. O2 on via [place] at 3LPM, patient self removed at times. IV fluids infusing per order via chest port. Intermittent productive cough, expectorates white colored sputum at times. Mouth care provided. Written communication left for Dr. Devries requesting hospice consult, notifying of moist productive cough, diminished lung sounds. Denies requests. Call light in reach.
[2025-04-29 06:41] LABS: Anion Gap 16 (5-15); BUN 7 mg/dL (4-19); BUN/Creat Ratio 16.3 RATIO (10-20); Calcium,Total 9.8 mg/dL (7.6-11.0); Carbon Dioxide 22.4 mmol/L (21.0-32.0); Chloride 98 mmol/L (98-108); Creatinine, Serum 0.45 mg/dL (0.70-1.20); EST Glomerular Filtration Rate 119 (>60); Estimated Creatinine Clearance 150.15 ml/min (50-250); Glucose 158 mg/dL (70-99); Potassium 3.7 mmol/L (3.3-5.1); Sodium Level 136 mmol/L (133-145)
--- NOTE | 2025-04-29 07:45 | CASEMGMT ---
Social Work WINSTON spoke with nursing and Dr. Devries directly about pt's decline and request for hospice. Pt has declined over the weekend and Dr and nursing agree pt would be appropriate for hospice IPU. DR. Devries spoke with pt at bedside and pt was lucid. Agreed to hospice IPU and code status change to DNR-CC. Nurse spoke with friend, Wendi, via phone call, and she and pt's son,Rolo, are arrriving shortly at pt's bedside. - WINSTON phoned referral to [facility] intake, request for IPU assessment. First available nurse is at 1330. IDT updated. - WINSTON spoke with pt, friend and son at bedside. Introduced self and role. Explained process for hospice referral and IPU evaluation. Dr Devries to begin comfort measures and therapy to discontinue. WINSTON obtained son's contact information and he is NOK. Updated in echart. Answered family's questions. Both appreciative. - WINSTON called for dietary comfort cart for family. Plan: DC 04/29, [facility], IPU, pending approval. Sondra Carson SAP PPM CONSULTANT BOBBIN INSPECTOR
[2025-04-29 08:04] LABS: Bedside Glucose 148 mg/dL (74-106)
--- NOTE | 2025-04-29 09:18 | NURSING ---
Shoder Filler Note; MDS for 04/27/2025 Complete
[2025-04-29 09:46] VITALS: BP 148/82; PULSE 92; RESP 18; TEMP 36.4; O2SAT 93
[2025-04-29] MEDS: oxyCODONE HCl Cr 10 MG Tablet 20 MG PO (11:18)
[2025-04-29] MEDS: Ensure Plus High Protein 120 ML LIQUID PO (11:18)
--- NOTE | 2025-04-29 16:20 | NURSING ---
[facility].
--- NOTE | 2025-04-29 16:22 | DS.PCM_ITS ---
Providers Date of Admission: 04/20/25 Primary Care Physician: Dr. Baljeet Meyer DO Reason For Visit: UTI AND PNEUMONIA Diagnosis Discharge Diagnosis (1) Debility: Status: Acute Code(s): R53.81 - Other malaise (2) Multiple falls: Status: Acute Code(s): R29.6 - Repeated falls (3) Encephalopathy: Status: Acute Code(s): G93.40 - Encephalopathy, unspecified (4) Pneumonia: Status: Resolved Code(s): J18.9 - Pneumonia, unspecified organism Qualifiers: Laterality: right Lung location: unspecified part of lung Pneumonia type: due to unspecified organism Qualified Code(s): J18.9 - Pneumonia, unspecified organism (5) Urinary tract infection: Status: Acute Code(s): N39.0 - Urinary tract infection, site not specified (6) Gastroenteritis: Status: Acute Code(s): K52.9 - Noninfective gastroenteritis and colitis, unspecified (7) Hypomagnesemia: Status: Acute Code(s): E83.42 - Hypomagnesemia (8) Transaminitis: Status: Acute Code(s): R74.01 - Elevation of levels of liver transaminase levels (9) Squamous cell lung cancer: Status: Acute Code(s): C34.90 - Malignant neoplasm of unspecified part of unspecified bronchus or lung (10) Mantle cell lymphoma: Status: Inactive Code(s): C83.10 - Mantle cell lymphoma, unspecified site Qualifiers: Lymphoma site: unspecified region Qualified Code(s): C83.10 - Mantle cell lymphoma, unspecified site (11) COPD (chronic obstructive pulmonary disease): Status: Chronic Code(s): J44.9 - Chronic obstructive pulmonary disease, unspecified (12) Neuropathic pain: Status: Acute Code(s): M79.2 - Neuralgia and neuritis, unspecified (13) Diabetes mellitus: Status: Acute Code(s): E11.9 - Type 2 diabetes mellitus without complications (14) Depression: Status: Acute Code(s): F32.9 - Major depressive disorder, single episode, unspecified (15) Nausea: Status: Acute Code(s): R11.0 - Nausea (16) Coronary artery disease: Status: Acute Code(s): I25.10 - Atherosclerotic heart disease of [place] coronary artery without angina pectoris (17) Tobacco abuse: Status: Acute Code(s): Z72.0 - Tobacco use (18) Alcohol abuse: Status: Chronic Code(s): F10.10 - Alcohol abuse, uncomplicated Plan 59 year old male with below past medical history significant for squamous cell lung cancer, hospitalized for falls, encephalopathy 2/2 pneumonia, uti, complicated by acute respiratory failure with hypoxia, gastroenteritis, hypomagnesemia, transaminitis 2/2 chemotherapy, admitted to TCU with debility, here for rehabilitation, strengthening, prior to discharge home with significant other. * Debility - PT/OT. * Pain - Tylenol 1000mg q6 prn pain (1-3), Oxycontin 20mg bid, Oxycodone 10mg q6 prn pain (4-10). * Bowel - Miralax 17gm daily, senna/colace 2 tablets bid, Magnesium citrate 300mL daily prn. * Adult immunization - Administer pneumonia vaccine, covid vaccine, flu vaccine as appropriate. * DVT prophylaxis - Lovenox 40mg sc daily. * Pneumonia/uti - Cefdinir 300mg bid thru 04/24/2025, Doxycycline 100mg bid thru 04/24/2025. * COPD - Fluticasone/Salmeterol 232-14 1 puff bid, Incruse 1 puff daily, Albuterol 2 puffs q4 prn, Prednisone 10mg daily. * Diabetic polyneuropathy - Gabapentin 300mg bid. * Diabetes Mellitus II - Glimepiride 1mg daily, Metformin 1000mg bidcm. * Skin irritation - Calmseptine topical bid. * Tinea Corporis - Nystatin powder topical bid. * Nausea - Zofran 8mg q8 prn, Compazine 10mg q6 prn thru 05/04/2025. The following psychotropic medication was present on admission: Bupropion 150mg bid. Psychotropic medication therapy is indicated for a diagnosis of: Depression. Based on my clinical evaluation, continuation of the medication is necessary at this time. Gradual dose reduction plan (select one): ____ GDR will be attempted. Will monitor patient symptoms and behaviors in response to GDR. __x__ GRD contraindicated. Reason contraindicated: stable chronic assisted use. The following psychotropic medication was present on admission: Duloxetine 60mg daily. Psychotropic medication therapy is indicated for a diagnosis of: Depression. Based on my clinical evaluation, continuation of the medication is necessary at this time. Gradual dose reduction plan (select one): ____ GDR will be attempted. Will monitor patient symptoms and behaviors in response to GDR. __x__ GRD contraindicated. Reason contraindicated: Stable chronic assisted use. The following psychotropic medication was present on admission: Zyprexa Zydis 5mg daily. Psychotropic medication therapy is indicated for a diagnosis of: Depression. Based on my clinical evaluation, continuation of the medication is necessary at this time. Gradual dose reduction plan (select one): ____ GDR will be attempted. Will monitor patient symptoms and behaviors in response to GDR. __x__ GRD contraindicated. Reason contraindicated: stable chronic management development specialist use. Medications at Discharge Home Medications oxycodone 10 mg tablet 10 mg PO Q6H PRN pain 04/14/25 oxycodone 20 mg tablet,crush resistant,extended release 12 hr (OxyContin) 20 mg PO BID pain 04/14/25 Hospital Course Operations None Procedures None Summary of Care Provided Minutes Spent on Discharge: 35 Hospital Course: 59 year old male with below past medical history significant for squamous cell lung cancer, hospitalized for falls, encephalopathy 2/2 pneumonia, uti, complicated by acute respiratory failure with hypoxia, gastroenteritis, hypomagnesemia, transaminitis 2/2 chemotherapy, admitted to TCU with debility, here for rehabilitation, strengthening, prior to discharge home with significant other. Resident dying. Discharge to Inpatient Hospice 04/29/2025 for end of life care. Physical Exam Const alert General Appearance: cooperative HEENT normocephalic Eyes PERRL and EOMs intact bilaterally Neck supple, no JVD and no carotid bruits Resp normal respiratory effort, normal air movement and clear to auscultation bilaterally Cardio regular rate and regular rhythm GI normal to inspection, nondistended, normoactive bowel sounds, non-tender and non-distended Extremity normal capillary refill General Extremity: Negative for edema Skin no rashes or lesions noted General Skin Exam: no breakdown Psych affect normal Appearance: appropriate Weight / BMI Weight Weight: 62.369 kg Body Mass Index (BMI) 19.7 ABG / Lab / Microbiology Data 04/29/25 05:10 04/29/25 05:10 Laboratory: Laboratory Results - last 24 hr 04/28/25 17:12: POC Glucose 142 H 04/29/25 05:10: WBC 14.5 H, RBC 3.29 L, Hgb 10.9 L, Hct 33.1 L, MCV 100.6 H, MCH 33.1 H, MCHC 32.9, RDW Std Deviation 53.7 H, RDW Coeff of Berta 14.6, Plt Count 243, MPV 11.0, Immature Gran % (Auto) 0.800, Neut % (Auto) 88.7 H, Lymph % (Auto) 3.7 L, [place] % (Auto) 5.4, Eos % (Auto) 1.1, Baso % (Auto) 0.3, Absolute Neuts (auto) 12.9 H, Absolute Lymphs (auto) 0.54 L, Nucleated RBC % 0, Sodium 136, Potassium 3.7, Chloride 98, Carbon Dioxide 22.4, Anion Gap 16 H, BUN 7, C reatinine 0.45 L, Estim Creat Clear Calc 150.15, Est GFR (MDRD) Non-Af 119, BUN/Creatinine Ratio 16.3, Glucose 158 H, Calcium 9.8 04/29/25 05:51: POC Glucose 148 H D/C Instructions Discharge Diet: No restrictions Discharge Activity: Return to Normal Activity Weight Bearing Status: Weight bearing as tolerated DC O2, CPAP, BIPAP Needs Home O2 Discharge instructions: No Additional Instructions: Discharge to inpatient hospice 04/29/2025 for end of life care. Meaningful Use Info Meaningful Use Meaningful Use Diagnoses (Choose all that apply): None applicable Ischemic Stroke Statin Dosing Therapy Reference: STATIN DOSE THERAPY REFERENCE: * Patients > 75 years receive moderate or high dose statin therapy. * Patients 75 years or YOUNGER should receive HIGH intensity statin dose unless contraindicated. You will be required to document reason for non-treatment if statin daily dose does not meet guidelines. HIGH DOSE STATIN THERAPY DAILY Atorvastatin > than or = to 40 mg Rosuvastatin > than or = to 20 mg Amlodipine + Atorvastatin > than or = to 2.5/40 mg Ezetimibe + Simvastatin 10/80 mg Simvastatin 80mg Discharge Plan Admission Admit Date/Time: 04/20/25 15:34 Primary Reason for Your Visit: Debility. Attending Provider: Ac Devries Chi Primary Care Provider: Baljeet Meyer Instructions Additional Instructions / Restrictions: Discharge to Inpatient Hospice 04/29/2025 for end of life care. Discharge Orders/Prescriptions Prescriptions: Continued oxycodone 10 mg tablet 10 mg PO Q6H PRN (Reason: pain) oxycodone [OxyContin] 20 mg tablet,oral only,ext.rel.12 hr 20 mg PO BID Discontinued albuterol 90 mcg/actuation Aerosol See Rx Instructions .ROUTE .COMPLEX Rx Instructions: PRN gabapentin 300 mg capsule 300 mg PO Q12H Patient Comments: Take 1 capsule by mouth 3 times per day for neuropathic pain Rx Instructions: 300 breakfast and lunch and 600 at dinner prednisone 10 mg tablet 10 mg PO DAILY olanzapine 5 mg tablet 5 mg PO DAILY bupropion HCl 150 mg tablet extended release 24 hr 150 mg PO BID ondansetron 8 mg tablet,disintegrating 8 mg PO Q8H PRN PRN (Reason: nausea) glimepiride 1 mg tablet 1 mg PO DAILY prochlorperazine maleate 10 mg tablet 10 mg PO Q6H PRN (Reason: nausea and vomiting) acetaminophen 500 mg tablet 500 mg PO Q8H PRN PRN (Reason: pain) metformin 1,000 mg tablet 1,000 mg PO BID duloxetine 30 mg capsule,delayed release(DR/EC) 60 mg PO DAILY Breztri Aerosphere 160-9-4.8 mcg/actuation HFA aerosol inhaler 2 inh inhalation BID doxycycline hyclate 100 mg tablet 100 mg PO BID Qty: 10 0RF cefdinir 300 mg capsule 300 mg PO BID 5 Days Qty: 10 0RF Breztri Aerosphere 160-9-4.8 mcg/actuation HFA aerosol inhaler 2 inh inhalation BID Referrals / Follow Up: Baljeet Meyer DO [Primary Care Provider] - Disposition Disposition (needs filled in before D/C Order can be placed): Hospice in Medical Facility
[2025-04-29 17:05] LABS: Bedside Glucose 136 mg/dL (74-106)
--- NOTE | 2025-05-01 12:32 | MDS.RN ---
Information for the MDS was obtained from review of the clinical record, interview of resident, staff, and direct observation of resident?s care.
== END 2025-04-29 16:45 | disposition hospice, inpatient (51) | DRG 194 ==
PROVIDERS: Admitting Provider Family Medicine Geriatric Medicine; PCP Internal Medicine Hematology & Oncology; Referring Provider Family Medicine Geriatric Medicine; Visit Provider Family Medicine Geriatric Medicine
DX: J18.9 Pneumonia, unspecified organism (principal); N39.0 Urinary tract infection, site not specified; E44.0 Moderate protein-calorie malnutrition; A04.72 Enterocolitis due to Clostridium difficile, not specified as recurrent; C83.10 Mantle cell lymphoma, unspecified site; C34.90 Malignant neoplasm of unspecified part of unspecified bronchus or lung; J44.0 Chronic obstructive pulmonary disease with (acute) lower respiratory infection; Z68.1 Body mass index [BMI] 19.9 or less, adult; B95.7 Other staphylococcus as the cause of diseases classified elsewhere; Z66 Do not resuscitate; E11.42 Type 2 diabetes mellitus with diabetic polyneuropathy; I10 Essential (primary) hypertension; F10.10 Alcohol abuse, uncomplicated; F32.9 Major depressive disorder, single episode, unspecified; I25.10 Atherosclerotic heart disease of native coronary artery without angina pectoris; E83.42 Hypomagnesemia; F17.210 Nicotine dependence, cigarettes, uncomplicated; E78.5 Hyperlipidemia, unspecified; F41.9 Anxiety disorder, unspecified; B35.4 Tinea corporis; R74.01 Elevation of levels of liver transaminase levels; Z79.84 Long term (current) use of oral hypoglycemic drugs; Z95.5 Presence of coronary angioplasty implant and graft; Z79.899 Other long term (current) drug therapy; Z79.51 Long term (current) use of inhaled steroids; R29.6 Repeated falls
CPT/HCPCS: 36415; 74018; 80048; 82962; 85025; 92507; 92523; 92526; 92610; 97110; 97162; 97166; 97530; 97535; A4216